=== PATIENT | male | born 1980 | race Caucasian/White ===

== ENCOUNTER 2023-05-26 15:48 | Inpatient (IN) ==
[2023-05-26 16:40] LABS: Basophils # (auto) 0.02 K/uL (0.00-0.20); Basophils % (auto) 0.4 %; Eosinophils # (auto) 0.44 K/uL (0.00-0.50); Eosinophils % (auto) 8.6 %; Hematocrit (blood only) 38.4 % (42.0-52.0); Hemoglobin 13.6 g/dl (14.0-18.0); Lymphocytes # (auto) 1.65 K/uL (1.20-3.40); Lymphocytes % (auto) 32.3 %; Mean Corpuscular Hemoglobin 30.2 pg (25.0-34.0); Mean Corpuscular Hgb Conc 35.4 g/dL (32.0-36.0); Mean Corpuscular Volume 85.3 fL (80.0-100.0); Mean Platelet Volume 9.4 fL (9.4-12.4); Monocytes # (auto) 0.39 K/uL (0.11-0.59); Monocytes % (auto) 7.6 %; Neutrophils # (auto) 2.61 K/uL (1.40-6.50); Neutrophils % (auto) 51.1 %; Platelet Count 235 K/uL (130-400); RDW Standard Deviation 43.4 fL (36.4-46.3); White Blood Count 5.11 K/ul (4.8-10.8)
[2023-05-26 16:53] LABS: INR 0.9 (0.9-1.1); Partial Thromboplastin Ratio 0.9; Partial Thromboplastin Time 25 Seconds (21-31); Prothrombin Time 9.6 Seconds (9.0-12.0)
[2023-05-26 17:07] LABS: Albumin Level 4.5 gm/dl (3.4-5.0); Anion Gap 8 (3-11); Bilirubin,Total 0.7 mg/dl (0.2-1.0); Carbon Dioxide 26 mmol/L (21-32); Chloride 105 mmol/L (98-107); Potassium 3.8 mmol/L (3.5-5.1); Sodium 139 mmol/L (136-145)
[2023-05-26 17:10] LABS: Troponin I High Sensitivity < 2.3 pg/ml (0-20)
[2023-05-26 17:13] LABS: Alanine Aminotransferase 55 U/L (7-52); Albumin Globulin Ratio 1.7 (0.9-2); Alkaline Phosphatase 92 U/L (34-104); Aspartate Aminotransferase 26 U/L (13-39); BUN Creatinine Ratio 21.1 (10-20); Blood Urea Nitrogen 19 mg/dl (6-23); Creatinine Clr Calc Pharmacy 154.8 ml/min; Est GFR (African American) 121.7 ml/min; Globulin 2.6 gm/dl (2.5-4.0); Glucose 185 mg/dl (70-99(Fasting)); Total Protein 7.1 gm/dl (6.0-8.3)
--- NOTE | 2023-05-26 17:54 | XRay Report ---
SINGLE VIEW CHEST CLINICAL HISTORY: Atypical chest pain. FINDINGS: A PA chest radiograph is compared to study dated 03/20/2011. A 2-lead cardiac pacemaker is n ew from previous. This partially obscures the left lower chest. The cardiomediastinal silhouette is t op normal for projection. The pulmonary vasculature is noncongested. The lungs and pleural spaces are clear. No pneumothorax is seen. The bony thorax is grossly intact. Cholecystectomy clips are seen in the right upper quadrant. IMPRESSION: 1. A cardiac pacemaker is new from previous. There is no radiographic evidence of congestive failure. 2. No airspace consolidation or large pleural effusion is identified. ACT 112: Negative or not required by law. Electronically signed by: Mj Cox M.D. 05/26/2023 5:53 PM
[2023-05-26] MEDS ORDERED: PANTOPRAZOLE BOLUS/DRIP IV STA (18:22)
--- NOTE | 2023-05-26 18:28 | Emergency Department Note ---
Impression & Plan Hematemesis, Acute upper GI bleed, Elevated glucose ED Provider Note NAME: DAVID TAVERAS AGE: 43 SEX: M : 1980 ARRIVES VIA: Walk-In INFORMANT: Patient ED PROVIDER(S): Ernesto Barton DO CHIEF COMPLAINT: Abdominal pain, chest pain and vomiting HPI: Patient is a 43-year-old male who presents to the ER with a past medical history of esophageal ulcer for abdominal pain and vomiting which started late yesterday. He has had 5-6 episodes of coffee-ground emesis with this. He denies any black stools. No headache or change in vision. Does have pain coming up from the abdomen into the chest. No dysuria urgency or frequency. Does take Xarelto and does have a dual pacemaker. BMP was fairly unremarkable with exception of an elevated glucose at 185. LFTs and bili is unremarkable. Troponin negative. Patient was typed and screened. ADDITIONAL HISTORY OBTAINED: Per HPI Chronic Medical/Social Conditions Affecting Care: Per HPI PAST MEDICAL HISTORY:See Below PAST SURGICAL HISTORY:See Below FAMILY HISTORY:See Below SOCIAL HISTORY:See Below HOME MEDICATIONS:See Below ALLERGIES:See Below VITALS:See Below PHYSICAL EXAMINATION: GENERAL: Sitting up in bed, alert, well appearing, well nourished, no distress, non-toxic EYE EXAM: normal conjunctiva. OROPHARYNX: mucous membranes are moist NECK: supple, no nuchal rigidity, no adenopathy, non-tender LUNGS: Clear to auscultation. Normal chest wall mechanics HEART: no murmurs, S1 normal and S2 normal ABDOMEN: abdomen soft, non-tender, normo-active bowel sounds, no masses, no rebound or guarding. BACK: Back is symmetrical on inspection and there is no deformity, no midline tenderness, no CVA tenderness. SKIN: no rashes and no bruising UPPER EXTREMITIES: upper extremities are grossly normal. LOWER EXTREMITIES: No pitting edema. NEURO EXAM: Normal sensorium, cranial nerves II-XII grossly intact, normal speech, no gross weakness of arms, no gross weakness of legs. MEDICAL DECISION MAKING: Patient is a 43-year-old male who presents ER for above-stated complaint. He is on rivaroxaban and does have a history of previous esophageal clip secondary to bleeding/ulcer. He admits to hematemesis x 5 today. IV was established blood work was obtained. Labs show no significant leukocytosis. Mild anemia at 13.6. INR unremarkable. BMP with slightly elevated glucose at 185. LFTs bilirubin lipase is unremarkable. Patient was typed and screened. CT abdomen pelvis shows mesenteric inflammation. Chest x-ray was clean. Placed on Protonix drip and bolus updated bedside discussed case with the hospitalist for further evaluation management treatment. Discussed case with the hospitalist for further evaluation management treatment. Consults/Care Managements Discussions: Per MDM Triage Nursing notes reviewed. Limited review of prior medical records performed Vital Signs: reviewed and remarkable for no significant abnormalities Differential diagnosis: Differential diagnoses includes but is not limited to gastritis, peptic ulcer disease, GERD, gallbladder disease, pancreatitis, small bowel obstruction, appendicitis, diverticulitis, hernia, urinary tract infection, torsion, perforation, trauma, infectious. ER treatment provided: See below Diagnostics interpreted by me include EKG and cardiac monitoring as listed below: -Cardiac Monitoring: An order was placed for continuous cardiac monitoring. The monitor shows a rate of 70 with sinus rhythm. -ECG: Sinus rhythm rate 76 Left axis No PVCs QTc 436 -Laboratory studies:Interpreted by me as stated above in MDM and shown below. Imaging studies: Xrays: As interpreted by me: Portable AP part 1 view of the chest shows no focal infiltrate CTs show: CT abdomen pelvis as described above per radiology Procedures:none Critical Care: None Past Med/Surg History Social History Smoking Status: Never smoker Feels Safe at Home: Yes Allergies Allergies Allergy/AdvReac Type Severity Reaction Status Date / Time penicillin V Allergy Severe RESP Verified 05/26/23 19:52 DIFFICULTY NSAIDS (Non-Steroidal Allergy Unknown UNKNOWN Unverified 05/26/23 19:52 Anti-Inflamma procaine Allergy Unknown UNKNOWN Unverified 05/26/23 19:52 adhesive Allergy _ Verified 05/26/23 19:52 Iodinated Contrast Media Allergy PROFILED Verified 05/26/23 19:52 "SEAFOOD ALLERGY=RASH" aripiprazole AdvReac Intermediate SEVERE Verified 05/26/23 19:52 MUSCLE CRAMPING clozapine AdvReac Intermediate ELEVATED Verified 05/26/23 19:52 AMMONIA LEVELS valproic acid AdvReac Unknown ELEVATED Verified 05/26/23 19:52 AMMONIA LEVELS Home Meds Home Medications Medication Instructions Recorded Confirmed adalimumab 40 mg/0.8 mL 40 mg subcut .Q2W 05/26/23 05/26/23 subcutaneous syringe kit (Humira) atorvastatin 40 mg tablet 40 mg PO DAILY 05/26/23 05/26/23 empagliflozin 25 mg tablet 25 mg PO DAILY 05/26/23 05/26/23 (Jardiance) insulin glargine 100 unit/mL (3 36 unit subcut QPM 05/26/23 05/26/23 mL) subcutaneous pen (Lantus Solostar U-100 Insulin) insulin lispro 100 unit/mL 0 unit subcut UD PRN Hyperglycemia 05/26/23 05/26/23 subcutaneous pen (Humalog KwikPen (U-100) Insulin) metformin 1,000 mg tablet 1,000 mg PO BID 05/26/23 05/26/23 pregabalin 200 mg capsule (Lyrica) 200 mg PO BID 05/26/23 05/26/23 rivaroxaban 20 mg tablet (Xarelto) 20 mg PO DAILYBD 05/26/23 05/26/23 Results & Data (ED) Vital Signs Vital Signs - 24 hr 05/26/23 15:51 05/26/23 17:54 05/26/23 18:04 Temperature 36.8 C Temperature Source Temporal Artery Scan Pulse Rate 89 75 Pulse Rate [Left Apical] 72 Pulse Rhythm Regular Pulse Strength Normal Respiratory Rate 20 18 Respiratory Effort / Characteristics Non-Labored Spontaneous Non-Labored Spontaneous Respiratory Depth Normal Normal Respiratory Pattern Regular Blood Pressure 153/96 H Blood Pressure [Right Arm] 126/78 Blood Pressure Mean 115 Blood Pressure Mean [Right Arm] 94 Blood Pressure Position [Right Arm] Lying Pulse Oximetry 97 98 Oxygen Delivery Method Room Air Room Air Sepsis Recent Fever Within 48 Hours No Sepsis New/Unexplained Change in Mental Status N/A Sepsis Action Taken by Nursing No Action Required 05/26/23 19:16 Temperature Temperature Source Pulse Rate Pulse Rate [Left Apical] 64 Pulse Rhythm Pulse Strength Respiratory Rate 18 Respiratory Effort / Characteristics Respiratory Depth Respiratory Pattern Blood Pressure Blood Pressure [Right Arm] 120/99 Blood Pressure Mean Blood Pressure Mean [Right Arm] 106 Blood Pressure Position [Right Arm] Pulse Oximetry 99 Oxygen Delivery Method Room Air Sepsis Recent Fever Within 48 Hours Sepsis New/Unexplained Change in Mental Status Sepsis Action Taken by Nursing Laboratory Data 05/26/23 16:14 05/26/23 16:14 Lab Results 05/26/23 05/26/23 Range/Units 16:14 17:31 WBC 5.11 (4.8-10.8) K/ul RBC 4.50 L (4.70-6.10) M/uL Hgb 13.6 L (14.0-18.0) g/dl Hct 38.4 L (42.0-52.0) % MCV 85.3 (80.0-100.0) fL MCH 30.2 (25.0-34.0) pg MCHC 35.4 (32.0-36.0) g/dL RDW Std Deviation 43.4 (36.4-46.3) fL RDW Coeff of Tiesha 14.0 (11.5-14.5) % Plt Count 235 (130-400) K/uL MPV 9.4 (9.4-12.4) fL Immature Gran % (Auto) 0.0 % Neut % (Auto) 51.1 % Lymph % (Auto) 32.3 % Taylor % (Auto) 7.6 % Eos % (Auto) 8.6 % Baso % (Auto) 0.4 % Neut # (Auto) 2.61 (1.40-6.50) K/uL Lymph # (Auto) 1.65 (1.20-3.40) K/uL Taylor # (Auto) 0.39 (0.11-0.59) K/uL Eos # (Auto) 0.44 (0.00-0.50) K/uL Baso # (Auto) 0.02 (0.00-0.20) K/uL Immature Gran # (Auto) 0.00 L (0.01-0.20) K/uL PT 9.6 (9.0-12.0) Seconds INR 0.9 (0.9-1.1) APTT 25 (21-31) Seconds PTT Ratio 0.9 Sodium 139 (136-145) mmol/L Potassium 3.8 (3.5-5.1) mmol/L Chloride 105 (98-107) mmol/L Carbon Dioxide 26 (21-32) mmol/L Anion Gap 8 (3-11) BUN 19 (6-23) mg/dl Creatinine 0.90 (0.6-1.4) mg/dl Est Cr Clr Drug Dosing 154.8 ml/min Est GFR ( Amer) 121.7 ml/min Est GFR (Non-Af Amer) 105.0 ml/min BUN/Creatinine Ratio 21.1 H (10-20) Glucose 185 H (70-99(Fasting)) mg/dl Calcium 10.0 (8.6-10.3) mg/dl Total Bilirubin 0.7 (0.2-1.0) mg/dl AST 26 (13-39) U/L ALT 55 H (7-52) U/L Alkaline Phosphatase 92 (34-104) U/L Troponin I High Sens < 2.3 (0-20) pg/ml Total Protein 7.1 (6.0-8.3) gm/dl Albumin 4.5 (3.4-5.0) gm/dl Globulin 2.6 (2.5-4.0) gm/dl Albumin/Globulin Ratio 1.7 (0.9-2) Lipase 17 (11-82) U/L Blood Type O Positive Antibody Screen NEGATIVE Administered Medications Pantoprazole Sodium 40 mg/ (Dextrose) 100 mls @ 20 mls/hr IV Q5H SALLY Stop: 06/25/23 18:44 Last Admin: 05/26/23 19:36 Dose: 8 mg/hr, 20 mls/hr Documented By: BENJAMIN Discontinued Medications Sodium Chloride (Nss) 1,000 mls @ 999 mls/hr IV .Q1H1M ONE Stop: 05/26/23 19:22 Last Infusion: 05/26/23 20:46 Dose: Infused Documented By: Admin: 05/26/23 18:29 Dose: 999 mls/hr Documented By: BRI Pantoprazole Sodium 80 mg/ (Dextrose) 120 mls @ 480 mls/hr IV NOW ONE Stop: 05/26/23 18:36 Last Infusion: 05/26/23 20:03 Dose: Infused Documented By: Admin: 05/26/23 19:18 Dose: 480 mls/hr Documented By: ANTWAN Morphine Sulfate (Morphine Sulfate 2 Mg/Ml Carp) 2 mg IV NOW STA Stop: 05/26/23 21:53 Last Admin: 05/26/23 22:09 Dose: 2 mg Documented By: BRI Imaging Data Radiologist's Impression: Chest X-Ray 05/26/23 15:50 SINGLE VIEW CHEST CLINICAL HISTORY: Atypical chest pain. FINDINGS: A PA chest radiograph is compared to study dated 03/20/2011. A 2-lead cardiac pacemaker is new from previous. This partially obscures the left lower chest. The cardiomediastinal silhouette is top normal for projection. The pulmonary vasculature is noncongested. The lungs and pleural spaces are clear. No pneumothorax is seen. The bony thorax is grossly intact. Cholecystectomy clips are seen in the right upper quadrant. IMPRESSION: 1. A cardiac pacemaker is new from previous. There is no radiographic evidence of congestive failure. 2. No airspace consolidation or large pleural effusion is identified. ACT 112: Negative or not required by law. Electronically signed by: Mj Cox M.D. 05/26/2023 5:53 PM Abdomen/Pelvis CT 05/26/23 18:22 Exam(s): CT ABDOMEN + PELVIS Without Contrast EXAM: CT Abdomen and Pelvis Without Intravenous Contrast CLINICAL HISTORY: Pain. TECHNIQUE: Axial computed tomography images of the abdomen and pelvis without intravenous contrast. CTDI is 28.14 mGy and DLP is 1527.97 mGy-cm. Automated exposure control was utilized for the study. A dose lowering technique was utilized adhering to the principles of ALARA. COMPARISON: CT abdomen and pelvis 03/24/2011 FINDINGS: Lung bases: Unremarkable. No mass. No consolidation. ABDOMEN: Liver: Unremarkable. Gallbladder and bile ducts: Cholecystectomy. No ductal dilation. Pancreas: Unremarkable. No ductal dilation. Spleen: Unremarkable. No splenomegaly. Adrenals: Unremarkable. No mass. Kidneys and ureters: Unremarkable. No obstructing stones. No hydronephrosis. Stomach and bowel: Unremarkable. No obstruction. No mucosal thickening. PELVIS: Appendix: Appendectomy. Bladder: Unremarkable. No stones. Reproductive: Unremarkable as visualized. ABDOMEN and PELVIS: Intraperitoneal space: Unremarkable. No free air. No significant fluid collection. Bones/joints: There are degenerative changes of the spine. No acute fracture. No dislocation. Soft tissues: Unremarkable. Vasculature: Unremarkable. No abdominal aortic aneurysm. Lymph nodes: Corinna mesentery with prominent mesenteric lymph nodes is noted. IMPRESSION: Corinna mesentery with prominent mesenteric lymph nodes is noted. 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 Electronically signed by: Lucretia Prieto MD 05/26/23 19:47 PM Discharge Plan Visit Data Chief Complaint: Chest Pain Stated Complaint: CHEST PAINS, VOMITING ED Provider: Ernesot Barton Discharge Problem: Hematemesis, Acute upper GI bleed, Elevated glucose Discharge Instructions Interventions: ED Discharge Assessment Last Done: 05/26/23 22:41 Discharge Problem: Hematemesis Qualifiers: Nausea presence: with nausea Qualified Code(s): K92.0 - Hematemesis
[2023-05-26] MEDS: SODIUM CHLORIDE 0.9% 1,000 ML IV ONE (18:29)
[2023-05-26] MEDS: PANTOprazole 80 MG in DEXTROSE 5% 100 ML IV ONE (19:18)
[2023-05-26] MEDS: PANTOprazole 40 MG in DEXTROSE 5% MINI-B 100 ML IV SCH (19:36)
--- NOTE | 2023-05-26 19:47 | CT Scan Report ---
Exam(s): CT ABDOMEN + PELVIS Without Contrast EXAM: CT Abdomen and Pelvis Without Intravenous Contrast CLINICAL HISTORY: Pain. TECHNIQUE: Axial computed tomography images of the abdomen and pelvis without intravenous contrast. CTDI is 28.14 mGy and DLP is 1527.97 mGy-cm. Automated exposure control was utilized for the study. A dose lowering technique was utilized adhering to the principles of ALARA. COMPARISON: CT abdomen and pelvis 03/24/2011 FINDINGS: Lung bases: Unremarkable. No mass. No consolidation. ABDOMEN: Liver: Unremarkable. Gallbladder and bile ducts: Cholecystectomy. No ductal dilation. Pancreas: Unremarkable. No ductal dilation. Spleen: Unremarkable. No splenomegaly. Adrenals: Unremarkable. No mass. Kidneys and ureters: Unremarkable. No obstructing stones. No hydronephrosis. Stomach and bowel: Unremarkable. No obstruction. No mucosal thickening. PELVIS: Appendix: Appendectomy. Bladder: Unremarkable. No stones. Reproductive: Unremarkable as visualized. ABDOMEN and PELVIS: Intraperitoneal space: Unremarkable. No free air. No significant fluid collection. Bones/joints: There are degenerative changes of the spine. No acute fracture. No dislocation. Soft tissues: Unremarkable. Vasculature: Unremarkable. No abdominal aortic aneurysm. Lymph nodes: Corinna mesentery with prominent mesenteric lymph nodes is noted. IMPRESSION: Corinna mesentery with prominent mesenteric lymph nodes is noted. 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 Electronically signed by: Lucretia Prieto MD 05/26/23 19:47 PM
--- NOTE | 2023-05-26 21:52 | History & Physical Report ---
Date of Service May 26, 2023 Assessment & Plan (1) Hematemesis: Plan: 43-year-old male with past med history significant for type 2 diabetes, hyperlipidemia, asthma, history of factor V Leyden mutation, history of chest pain, history of eosinophilic esophagitis, history of pseudoseizures, history of migraine, anxiety, Klinefelter syndrome, noncompliant, depression, medical marijuana use, history of symptomatic bradycardia s/p pacemaker history of ventricular tachycardia, fibromyalgia, morbid obesity, history of obstructive sleep apnea currently not using CPAP machine and states he lost weight and planning to do sleep study presents with hematemesis and chest pain. Patient states since yesterday evening he had 4-6 episodes of hematemesis. Today morning since 3 AM is having chest pain. 7 /10 severity in middle of the chest. No radiation. Also has upper abdominal pain 7/ 10 in severity. No diarrhea or constipation. No bloody stools or black stools. Micturating okay. No shortness of breath. No fevers. No headache. Vision is okay. No runny nose or sore throat. No cough. Patient had similar episodes in April of last year. Hemodynamics are okay. Resting comfortably. Hematemesis Hemoglobin 13.6 Will hold Xarelto Blood consent obtained H&H every 6 hours Protonix drip N.p.o., IV fluids Telemetry GI consult in a.m. Close monitor Chest pains Troponin unremarkable Will follow repeat EKG and troponins and echo Cardiac consult in a.m. Diabetes Cut back on Lantus to 18 units as patient is n.p.o. Sliding scale Follow HbA1c levels Factor V Leiden mutation Holding Xarelto for above Rheumatoid arthritis On Humira Hyperlipidemia On statin Morbid obesity Needs counseling Nutrition follow-up Obstructive sleep apnea Currently not using CPAP States lost weight and trying to do repeat sleep study DVT prophylaxis SCDs Disposition Telemetry Full code History of Present Illness Chief Complaint: Hematemesis and chest pain Primary Care Provider: NO PCP 43-year-old male with past med history significant for type 2 diabetes, hyperlipidemia, asthma, history of factor V Leyden mutation, history of chest pain, history of eosinophilic esophagitis, history of pseudoseizures, history of migraine, anxiety, Klinefelter syndrome, noncompliant, depression, medical marijuana use, history of symptomatic bradycardia s/p pacemaker history of ventricular tachycardia, fibromyalgia, morbid obesity, history of obstructive sleep apnea currently not using CPAP machine and states he lost weight and planning to do sleep study presents with hematemesis and chest pain. Patient states since yesterday evening he had 4-6 episodes of hematemesis. Today morning since 3 AM is having chest pain. 7 /10 severity in middle of the chest. No radiation. Also has upper abdominal pain 7/ 10 in severity. No diarrhea or constipation. No bloody stools or black stools. Micturating okay. No shortness of breath. No fevers. No headache. Vision is okay. No runny nose or sore throat. No cough. Patient had similar episodes in April of last year. Hemodynamics are okay. Resting comfortably. Past med history. As mentioned above Past surgical history. S/p pacemaker. Cholecystectomy. For tooth removal. Gastric ulcer cauterized. Appendectomy. Social history. No smoking. No alcohol. Currently no drugs. Family history. Father had testicular cancer. Diabetes. CABG and stents. Hypertension. Sister has thyroid disorder Allergies Allergy/AdvReac Type Severity Reaction Status Date / Time penicillin V Allergy Severe RESP Verified 05/26/23 19:52 DIFFICULTY NSAIDS (Non-Steroidal Allergy Unknown UNKNOWN Unverified 05/26/23 19:52 Anti-Inflamma procaine Allergy Unknown UNKNOWN Unverified 05/26/23 19:52 adhesive Allergy _ Verified 05/26/23 19:52 Iodinated Contrast Media Allergy PROFILED Verified 05/26/23 19:52 "SEAFOOD ALLERGY=RASH" aripiprazole AdvReac Intermediate SEVERE Verified 05/26/23 19:52 MUSCLE CRAMPING clozapine AdvReac Intermediate ELEVATED Verified 05/26/23 19:52 AMMONIA LEVELS valproic acid AdvReac Unknown ELEVATED Verified 05/26/23 19:52 AMMONIA LEVELS Home Medications Medication Instructions Recorded Confirmed Type adalimumab 40 mg/0.8 mL 40 mg subcut .Q2W 05/26/23 05/26/23 History subcutaneous syringe kit (Humira) atorvastatin 40 mg tablet 40 mg PO DAILY 05/26/23 05/26/23 History empagliflozin 25 mg tablet 25 mg PO DAILY 05/26/23 05/26/23 History (Jardiance) insulin glargine 100 unit/mL (3 36 unit subcut QPM 05/26/23 05/26/23 History mL) subcutaneous pen (Lantus Solostar U-100 Insulin) insulin lispro 100 unit/mL 0 unit subcut UD PRN Hyperglycemia 05/26/23 05/26/23 History subcutaneous pen (Humalog KwikPen (U-100) Insulin) metformin 1,000 mg tablet 1,000 mg PO BID 05/26/23 05/26/23 History pregabalin 200 mg capsule (Lyrica) 200 mg PO BID 05/26/23 05/26/23 History rivaroxaban 20 mg tablet (Xarelto) 20 mg PO DAILYBD 05/26/23 05/26/23 History Past Med/Surg History Social History Smoking Status: Never smoker Hx Alcohol Use: No Hx Substance Use: No Preferred Language: [place] Citizen Communication Ability: Effective Category Specialist Required: No Beliefs That Will Affect Care: None Current Living Situation: Alone Feels Safe at Home: Yes Safety Concerns: Feels Safe At This Time Assistive Devices: None Review of Systems Review of Systems: All systems reviewed & are unremarkable except as noted in HPI & below Physical Exam Physical Exam: General- Not in distress Head- atraumatic Eyes- PERRL. ENT- oropharynx clear Neck- supple, no JVD. Lungs- clear to auscultation no wheezing or crackles. Heart- regular rhythm; no murmur, no gallop. Abdomen- normal bowel sounds, soft,mild diffuse discomfort , no distension Extremities- no pretibial edema, no erythema seen. Neuro- alert, oriented x 3; PERRL, no facial palsy; no dysarthria; Skin- warm & dry Results & Data Results & Data Vital Signs (Past 12 Hours) Vital Signs Temp Pulse Pulse Resp BP BP Pulse Ox 05/26/23 19:16 64 18 120/99 99 05/26/23 18:04 75 05/26/23 17:54 72 18 126/78 98 05/26/23 15:51 36.8 C 89 20 153/96 H 97 O2 Del Method 05/26/23 19:16 Room Air 05/26/23 18:04 05/26/23 17:54 Room Air 05/26/23 15:51 Room Air Diagnostic Findings Laboratory Results WBC 5.11 K/ul (4.8-10.8) 05/26/23 16:14 RBC 4.50 M/uL (4.70-6.10) L 05/26/23 16:14 Hgb 13.6 g/dl (14.0-18.0) L 05/26/23 16:14 Hct 38.4 % (42.0-52.0) L 05/26/23 16:14 MCV 85.3 fL (80.0-100.0) 05/26/23 16:14 MCH 30.2 pg (25.0-34.0) 05/26/23 16:14 MCHC 35.4 g/dL (32.0-36.0) 05/26/23 16:14 RDW Std Deviation 43.4 fL (36.4-46.3) 05/26/23 16:14 RDW Coeff of Tiesha 14.0 % (11.5-14.5) 05/26/23 16:14 Plt Count 235 K/uL (130-400) 05/26/23 16:14 MPV 9.4 fL (9.4-12.4) 05/26/23 16:14 Immature Gran % (Auto) 0.0 % 05/26/23 16:14 Neut % (Auto) 51.1 % 05/26/23 16:14 Lymph % (Auto) 32.3 % 05/26/23 16:14 Elbert % (Auto) 7.6 % 05/26/23 16:14 Eos % (Auto) 8.6 % 05/26/23 16:14 Baso % (Auto) 0.4 % 05/26/23 16:14 Neut # (Auto) 2.61 K/uL (1.40-6.50) 05/26/23 16:14 Lymph # (Auto) 1.65 K/uL (1.20-3.40) 05/26/23 16:14 Elbert # (Auto) 0.39 K/uL (0.11-0.59) 05/26/23 16:14 Eos # (Auto) 0.44 K/uL (0.00-0.50) 05/26/23 16:14 Baso # (Auto) 0.02 K/uL (0.00-0.20) 05/26/23 16:14 Immature Gran # (Auto) 0.00 K/uL (0.01-0.20) L 05/26/23 16:14 PT 9.6 Seconds (9.0-12.0) 05/26/23 16:14 INR 0.9 (0.9-1.1) 05/26/23 16:14 APTT 25 Seconds (21-31) 05/26/23 16:14 PTT Ratio 0.9 05/26/23 16:14 Sodium 139 mmol/L (136-145) 05/26/23 16:14 Potassium 3.8 mmol/L (3.5-5.1) 05/26/23 16:14 Chloride 105 mmol/L (98-107) 05/26/23 16:14 Carbon Dioxide 26 mmol/L (21-32) 05/26/23 16:14 Anion Gap 8 (3-11) 05/26/23 16:14 BUN 19 mg/dl (6-23) 05/26/23 16:14 Creatinine 0.90 mg/dl (0.6-1.4) 05/26/23 16:14 Est Cr Clr Drug Dosing 154.8 ml/min 05/26/23 16:14 Est GFR ( Amer) 121.7 ml/min 05/26/23 16:14 Est GFR (Non-Af Amer) 105.0 ml/min 05/26/23 16:14 BUN/Creatinine Ratio 21.1 (10-20) H 05/26/23 16:14 Glucose 185 mg/dl (70-99(Fasting)) H 05/26/23 16:14 Calcium 10.0 mg/dl (8.6-10.3) 05/26/23 16:14 Total Bilirubin 0.7 mg/dl (0.2-1.0) 05/26/23 16:14 AST 26 U/L (13-39) 05/26/23 16:14 ALT 55 U/L (7-52) H 05/26/23 16:14 Alkaline Phosphatase 92 U/L (34-104) 05/26/23 16:14 Troponin I High Sens < 2.3 pg/ml (0-20) 05/26/23 16:14 Total Protein 7.1 gm/dl (6.0-8.3) 05/26/23 16:14 Albumin 4.5 gm/dl (3.4-5.0) 05/26/23 16:14 Globulin 2.6 gm/dl (2.5-4.0) 05/26/23 16:14 Albumin/Globulin Ratio 1.7 (0.9-2) 05/26/23 16:14 Lipase 17 U/L (11-82) 05/26/23 16:14 Blood Type O Positive 05/26/23 17:31 Antibody Screen NEGATIVE 05/26/23 17:31 Impressions Chest X-Ray 05/26/23 15:50 SINGLE VIEW CHEST CLINICAL HISTORY: Atypical chest pain. FINDINGS: A PA chest radiograph is compared to study dated 03/20/2011. A 2-lead cardiac pacemaker is new from previous. This partially obscures the left lower chest. The cardiomediastinal silhouette is top normal for projection. The pulmonary vasculature is noncongested. The lungs and pleural spaces are clear. No pneumothorax is seen. The bony thorax is grossly intact. Cholecystectomy clips are seen in the right upper quadrant. IMPRESSION: 1. A cardiac pacemaker is new from previous. There is no radiographic evidence of congestive failure. 2. No airspace consolidation or large pleural effusion is identified. ACT 112: Negative or not required by law. Electronically signed by: Mj Cox M.D. 05/26/2023 5:53 PM Abdomen/Pelvis CT 05/26/23 18:22 Exam(s): CT ABDOMEN + PELVIS Without Contrast EXAM: CT Abdomen and Pelvis Without Intravenous Contrast CLINICAL HISTORY: Pain. TECHNIQUE: Axial computed tomography images of the abdomen and pelvis without intravenous contrast. CTDI is 28.14 mGy and DLP is 1527.97 mGy-cm. Automated exposure control was utilized for the study. A dose lowering technique was utilized adhering to the principles of ALARA. COMPARISON: CT abdomen and pelvis 03/24/2011 FINDINGS: Lung bases: Unremarkable. No mass. No consolidation. ABDOMEN: Liver: Unremarkable. Gallbladder and bile ducts: Cholecystectomy. No ductal dilation. Pancreas: Unremarkable. No ductal dilation. Spleen: Unremarkable. No splenomegaly. Adrenals: Unremarkable. No mass. Kidneys and ureters: Unremarkable. No obstructing stones. No hydronephrosis. Stomach and bowel: Unremarkable. No obstruction. No mucosal thickening. PELVIS: Appendix: Appendectomy. Bladder: Unremarkable. No stones. Reproductive: Unremarkable as visualized. ABDOMEN and PELVIS: Intraperitoneal space: Unremarkable. No free air. No significant fluid collection. Bones/joints: There are degenerative changes of the spine. No acute fracture. No dislocation. Soft tissues: Unremarkable. Vasculature: Unremarkable. No abdominal aortic aneurysm. Lymph nodes: Corinna mesentery with prominent mesenteric lymph nodes is noted. IMPRESSION: Corinna mesentery with prominent mesenteric lymph nodes is noted. 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 Electronically signed by: Lucretia Prieto MD 05/26/23 19:47 PM ECG Additional Comments: ECG. Normal sinus rhythm with sinus erythematous on 6. Minimal voltage criteria for LVH. Possible anterolateral infarct age undetermined. Code Status & VTE Plan VTE Prophylaxis Plan VTE Prophylaxis will be ordered: Yes
[2023-05-26] MEDS: MoRPHine SULFATE 2 MG/ML CARP IV STA (22:09)
[2023-05-26] MEDS ORDERED: CARBOHYDRATES FOR HYPOGLYCEMIA PO PRN (22:40)
[2023-05-26] MEDS ORDERED: DEXTROSE 50% 50 ML SYRINGE IV PRN (22:40)
[2023-05-26] MEDS ORDERED: GLUCOSE 10 TAB/TUBE PO PRN (22:40)
[2023-05-26] MEDS ORDERED: GLUCOSE 40% GEL 15 GM TUBE PO PRN (22:40)
[2023-05-26] MEDS ORDERED: GLUCAGON FOR INJ 1 MG VIAL SQ PRN (22:40)
[2023-05-26] MEDS ORDERED: NITROGLYCERIN SL 0.4 MG/TAB TAB SL PRN (22:40)
[2023-05-26] MEDS: PREGABALIN 100 MG CAP PO SCH (23:36)
[2023-05-26] MEDS: LANTUS PER UNIT CHARGE SQ SCH (23:36)
[2023-05-26] MEDS: SODIUM CHLORIDE 0.9% 1,000 ML IV SCH (23:39)
[2023-05-26] MEDS: INSULIN ASPART PER UNIT CHARGE SC SCH (23:50)
[2023-05-27 06:55] LABS: Hematocrit (blood only) 35.8 % (42.0-52.0); Hemoglobin 12.2 g/dl (14.0-18.0)
[2023-05-27 06:58] LABS: Anion Gap 5 (3-11); Blood Urea Nitrogen 16 mg/dl (6-23); Calcium 8.9 mg/dl (8.6-10.3); Carbon Dioxide 26 mmol/L (21-32); Chloride 110 mmol/L (98-107); Creatinine Clr Calc Pharmacy 165.9 ml/min; Est GFR (African American) 125.2 ml/min; Glucose 134 mg/dl (70-99(Fasting)); Magnesium 1.7 mg/dl (1.7-2.4); Potassium 3.8 mmol/L (3.5-5.1); Sodium 141 mmol/L (136-145)
[2023-05-27 07:05] LABS: Troponin I High Sensitivity < 2.3 pg/ml (0-20)
[2023-05-27 07:07] LABS: Estimated Average Glucose 154 mg/dl
[2023-05-27] MEDS: ATORVASTATIN 40 MG TAB PO SCH (07:37)
[2023-05-27] MEDS: MoRPHine SULFATE 2 MG/ML CARP IV PRN (08:12)
--- NOTE | 2023-05-27 08:55 | Gastrointestinal Consultation ---
Date of Consultation May 27, 2023 Assessment & Plan (1) Hematemesis: (2) Acute upper GI bleed: Plan 1. EGD today by Dr. Alex bains further recommendations to follow. 2. Keep NPO. Hold Xeralto. 3. Additionally, our office will reach out to him to arrange OP GI f/u for EOE/dysphagia. History of Present Illness Reason for Consultation: hematemesis Requesting Physician: Dr. Chi Attending Physician: Rod Bruner MD History of Present Illness Mr. Luis Burris is a 43 yr old male w/o a local PCP. He moved here from [facility] about 3 weeks ago. He carries a hx of EOE (not currently medicated and most recent EGD about 10 yrs ago). He has had dysphagia for the past few months, food triggers being mostly chicken, beef, but some other solid foods as well. He carries a hx of Factor 5 Leiden deficiency and is on Eliquis. Also has a dual pacemaker and was recently dx'ed w and placed on Humira. He presented to the ED yesterday because he vomited blood on Tuesday afternoon (small amt) and again on afternoon (small amt prior to arrival x about 5 episodes, then one large bloody emesis here in the ED). Since the vomiting started, he has had moderate epigastric, LUQ and periumbilical pain. He had abd burning pain into the chest with the emesis but otherwise no CP and troponins have been normal. Hb on arrival 13.6->12.2, BUN is normal. CT questions panniculitis. Pt is awake, alert, oriented and hemodynamically stable. Allergies Allergy/AdvReac Type Severity Reaction Status Date / Time penicillin V Allergy Severe RESP Verified 05/26/23 19:52 DIFFICULTY NSAIDS (Non-Steroidal Allergy Unknown UNKNOWN Unverified 05/26/23 19:52 Anti-Inflamma procaine Allergy Unknown UNKNOWN Unverified 05/26/23 19:52 adhesive Allergy _ Verified 05/26/23 19:52 Iodinated Contrast Media Allergy PROFILED Verified 05/26/23 19:52 "SEAFOOD ALLERGY=RASH" aripiprazole AdvReac Intermediate SEVERE Verified 05/26/23 19:52 MUSCLE CRAMPING clozapine AdvReac Intermediate ELEVATED Verified 05/26/23 19:52 AMMONIA LEVELS valproic acid AdvReac Unknown ELEVATED Verified 05/26/23 19:52 AMMONIA LEVELS Home Medications Medication Instructions Recorded Confirmed Type adalimumab 40 mg/0.8 mL 40 mg subcut .Q2W 05/26/23 05/26/23 History subcutaneous syringe kit (Humira) atorvastatin 40 mg tablet 40 mg PO DAILY 05/26/23 05/26/23 History empagliflozin 25 mg tablet 25 mg PO DAILY 05/26/23 05/26/23 History (Jardiance) insulin glargine 100 unit/mL (3 36 unit subcut QPM 05/26/23 05/26/23 History mL) subcutaneous pen (Lantus Solostar U-100 Insulin) insulin lispro 100 unit/mL 0 unit subcut UD PRN Hyperglycemia 05/26/23 05/26/23 History subcutaneous pen (Humalog KwikPen (U-100) Insulin) metformin 1,000 mg tablet 1,000 mg PO BID 05/26/23 05/26/23 History pregabalin 200 mg capsule (Lyrica) 200 mg PO BID 05/26/23 05/26/23 History rivaroxaban 20 mg tablet (Xarelto) 20 mg PO DAILYBD 05/26/23 05/26/23 History Patient History Social History Smoking Status: Never smoker Hx Alcohol Use: No Hx Substance Use: No Preferred Language: [place] Communication Ability: Effective Physician Scientist Required: No Beliefs That Will Affect Care: None Current Living Situation: Alone Feels Safe at Home: Yes Safety Concerns: Feels Safe At This Time Assistive Devices: None Review of Systems 2 Review of Systems: ROS: Gen: Denies weakness, fevers, weight loss Eyes: No eye redness, or pain, no recent vision changes Resp: No SOB, no cough Cardio:As per HPI, otherwise (-) No palpitations/irregular beats GI: No abdominal pain, no nausea/vomiting : Denies pain on urination Skin: No jaundice, itching or new rashes Physical Exam 2 Constitutional: + obese and well groomed; no acute distr ess Eyes: PERRL, conjunctivae normal, anicteric sclerae ENMT: external ear and nose normal, oropharynx normal Neck: trachea midline, no thyromegaly Respiratory: normal respiratory effort, lungs clear to auscultation Cardiovascular: RRR, no murmur, no edema Gastrointestinal (Abdomen): Obese, soft, non distended, tender in the epigastric, LUQ and periumbilical areas. Skin: no rashes, warm and dry Neurologic: PERRL, EOMI, accommodation nl, no face palsy, no dysarthria Psychiatric: A+Ox3, euthymic affect Lymphatic: no cervical or axillary lymphadenopathy Results & Data Vital Signs (Past 12 Hours) Vital Signs Temp Pulse Pulse Resp BP BP Pulse Ox 05/27/23 08:07 36.3 C L 60 16 122/76 97 05/27/23 04:10 36.4 C L 65 18 137/81 96 05/27/23 04:08 62 05/27/23 01:06 63 05/27/23 00:14 60 18 94/60 L 96 05/27/23 00:10 60 18 94/63 L 95 05/26/23 23:00 86/67 L 05/26/23 23:00 60 20 96 05/26/23 22:40 05/26/23 22:00 70 15 05/26/23 21:47 73 05/26/23 21:00 131/84 05/26/23 21:00 69 12 96 Pulse Ox O2 Del Method 05/27/23 08:07 Room Air 05/27/23 04:10 Room Air 05/27/23 04:08 05/27/23 01:06 05/27/23 00:14 Room Air 05/27/23 00:10 Room Air 05/26/23 23:00 05/26/23 23:00 05/26/23 22:40 99 05/26/23 22:00 05/26/23 21:47 05/26/23 21:00 05/26/23 21:00 Laboratory Results 05/27/23 06:15 05/27/23 06:15 Diagnostic Findings CTAP w IV 05/26/23: Corinna mesentery with prominent mesenteric lymph nodes is noted. 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 (1) Hematemesis Nausea presence: with nausea Qualified Code(s): K92.0 - Hematemesis
--- OUTSIDE RECORDS SUMMARY | 2023-05-27 09:24 | External Medical Summary ---
Author Name Unknown Address Unknown Organization L1A:[facility] [address] [place] [address] Laboratory Report Ordering Provider Test Date Status RENATE GHOSH 05/10/2023 08:16:00 Final Observation Date Value Abnormality Reference (Units ) Status aPTT 05/10/2023 08:39:44 28.9 20.2-28.9 (sec.) Final Performing Location [facility] [address] [place] [address]
--- OUTSIDE RECORDS SUMMARY | 2023-05-27 09:24 | External Medical Summary | Continuity of Care Document ---
Author Name Unknown Organization [facility] Address [address] [place] [address] [phone] Encounter [facility] [id number] Date(s): 04/23/23 - 04/23/[address] [id number] [phone] Encounter Diagnosis Chest discomfort(Discharge Diagnosis) - 04/23/23 Adenoviral infection(Discharge Diagnosis) - 04/23/23 Discharge Disposition: Home or Self Care Attending Physician: MD Gibran, Ron Allergies, Adverse Reactions, Alerts Substance Reaction Severity Status ibuprofen Wheezing Dyspnea Anaphylaxis Active phenytoin Unknown Active gadopentetate dimeglumine Itching Urticaria Active ketorolac Rash/Dermatitis Anaphylaxis Active topiramate Urticaria Active penicillins Wheezing Active iodinated radiocontrast dyes Anaphylaxis Severe Active Novocain Active Ativan low heart rate Active Magnevist Itchiness with no hives or rash Active Depakote Active Adhesive bandage Rash Mild Active seafood Active cloZAPine Unknown Active iodine Anaphylaxis Severe Active NSAIDS (nonsteroidal anti-inflammatory agents) Active Functional Status 04/23/23 History of Fall in Last 3 Months Gonzales N o Presence of Secondary Diagnosis Gonzales No Use of Ambulatory Aid Gonzales None/bedrest /nurse assist IV/Heparin Lock Fall Risk Gonzales No Gait/Transferring Fall Risk Gonzales Normal /bedrest/immobile Mental Status Fall Risk Gonzales Oriented t o own ability Gonzales Fall Risk Score 0 Gonzales Fall Risk No Risk 04/23/23 Speech Pattern Clear Immunizations Given and Recorded Vaccine Date Status Refusal Reason tetanus/diphtheria/pertuss, acel (Tdap) 08/22/22 G iven Medications acetaminophen 500 mg oral tablet Start: 03/24/22 13:15:00 EST, 1 tab, PO, q6h, PRN: as needed for pain Start Date: 03/24/22 Status: Ordered Aspercreme 10% topical cream Start: 11/26/22 8:44:00 EDT, 1 appl, topical, qid, PRN: Pain Start Date: 11/26/22 Status: Ordered atorvastatin Start: 06/14/18 4:54:00 EDT, 40 mg =, PO, Daily Start Date: 06/14/18 Status: Ordered empagliflozin 25 mg oral tablet Start: 07/19/21 2:19:00 EDT, 25 mg =, PO, qAM Start Date: 07/19/21 Status: Ordered Flonase 50 mcg/inh nasal spray Start: 03/22/22 22:14:00 EST, 1 spray, each nostril, Daily, PRN: as needed for allergy symptoms Start Date: 03/22/22 Status: Ordered Humira Pen (citrate free) 40 mg/0.4 mL SQ kit Start: 04/23/23 8:19:00 EST, 2 each, 0 Refill(s) Start Date: 04/23/23 Status: Ordered Lantus Solostar Pen 100 units/mL subcutaneous solution Start: 04/29/22 10:37:00 EST, 26 unit =, subQ, qhs Start Date: 04/29/22 Status: Ordered lidocaine 5% patch Start: 03/22/22 22:14:00 EST, 1 patch, topical, Daily, back / chest, PRN: pain Start Date: 03/22/22 Status: Ordered Lyrica 200 mg oral capsule Start: 07/15/21 14:36:00 EDT, 1 cap, PO, bid Start Date: 07/15/21 Status: Ordered magnesium oxide 400 mg (241.3 mg elemental magnesium) oral tablet Start: 12/09/21 10:15:00 EDT, 1 tab, PO, Daily Start Date: 12/09/21 Status: Ordered metformin 500 mg oral tablet Start: 09/09/12 2:35:00, 2 tab, PO, bid Start Date: 09/09/12 Status: Ordered multivitamin Start: 11/26/22 8:46:00 EDT, 1 tab, PO, Daily Start Date: 11/26/22 Status: Ordered NovoLOG FlexPen 100 units/mL injectable solution Start: 04/29/22 10:37:00 EST, See Instructions, sliding scale with meals Start Date: 04/29/22 Status: Ordered Protonix Start: 02/01/11 3:47:00 EST, 40 mg =, PO, bid Start Date: 02/01/11 Status: Ordered rivaroxaban 20 mg oral tablet Start: 07/22/21 10:57:00 EDT, 1 tab, PO, qAM, with breakfast Start Date: 07/22/21 Status: Ordered Vitamin B1 50 mg oral tablet Start: 11/26/22 8:46:00 EDT, 1 tab, PO, Daily Start Date: 11/26/22 Status: Ordered Problem List Condition Confirmation Course Effective Dates Status Health Status Informant Gastropathy Confirmed Active Eosinophilic esophagitis Confirmed Active Factor V Leiden mutation Confirmed Active Fibromyalgia Confirmed Active GERD (gastroesophageal reflux disease) Confirmed Active Hypercholesterolemia Confirmed Active Paroxysmal supraventricular tachycardia Confirmed Active Pericarditis Confirmed Active Mesenteric panniculitis Confirmed Active Type 2 diabetes mellitus Confirmed Active Diagnosis Diagnosis Type Effective Dates Health Status Clinical Service Informant Chest discomfort Discharge Diagnosis 04/23/23 Adenoviral infection Discharge Diagnosis 04/23/23 Procedures Procedure Date Related Diagnosis Body Site Status REMOVAL OF GALLBLADDER 1999 Co mpleted APPENDECTOMY 1993 Completed Results Laboratory List Name Date Troponin T ( 5th Gen) 04/23/23 Complete Blood Count w Differential (CBC w Platelets and Diff) 04/23/23 Comprehensive Metabolic Panel (CMP) 04/23 Lipase Level 04/23/23 Troponin T ( 5th Gen) 04/23/23 Strep A Rapid Antigen Nurse POC (ED) (Ra pid Strep Nurse POC (ED)) 04/23/23 Most recent to oldest [Reference Range]: 1 2 eGFR CKD-EPI [>60 mL/min/1.73 m2] >90 mL /min/1.73 m2 (04/23/23 8:04 AM) Rapid Strep Screen, POC Negative 1 (04/23/23 8:33 AM) Rapid Strep Screen Ref Range [negative] (04/23/23 8:33 AM) Culture sent to lab for confirmation Yes (04/23/23 8:33 AM) Troponin T ( 5th Gen) [<22 ng/L] <6 ng/L 2 (04/23/23 9:30 AM) <6 ng/L 3 (04/23/23 8:04 AM) Troponin T ( 5th Gen) Delta NOT CALCULAT ED (04/23/23 9:30 AM) NOT CALCULATED (04/23/23 8:04 AM) Estimated CrCl 201.33 mL/min (04/23/23 9:04 AM) MPV [9.0-12.2 fL] 9.3 fL (04/23/23 8:04 AM) Immature Gran% 0.2 % (04/23/23 8:04 AM) Neut% 61.4 % (04/23/23 8:04 AM) Lymph% 23.9 % (04/23/23 8:04 AM) Haines% 7.9 % (04/23/23 8:04 AM) Baso% 0.9 % (04/23/23 8:04 AM) Eos% 5.7 % (04/23/23 8:04 AM) Immat Gran, Abs [0-0.4 K/uL] 0.01 K/uL (04/23/23 8:04 AM) Neut, Abs [2.0-7.7 K/uL] 3.88 K/uL (04/23/23 8:04 AM) Lymph, Abs [1.0-3.4 K/uL] 1.51 K/uL (04/23/23 8:04 AM) Haines, Abs [0-1.0 K/uL] 0.50 K/uL (04/23/23 8:04 AM) Baso, Abs [0-0.1 K/uL] 0.06 K/uL (04/23/23 8:04 AM) Eos, Abs [0-0.5 K/uL] 0.36 K/uL (04/23/23 8:04 AM) Type of Diff: AUTO (04/23/23 8:04 AM) RDW [11.5-14.2 %] 14.1 % (04/23/23 8:04 AM) Anion Gap [5-14 mmol/L] 12 mmol/L (04/23/23 8:04 AM) Alb [3.5-5.2 g/dL] 4.2 g/dL (04/23/23 8:04 AM) Alk Phos [40-130 unit/L] 114 unit/L (04/23/23 8:04 AM) ALT [0-41 unit/L] 21 unit/L (04/23/23 8:04 AM) AST [0-40 unit/L] 19 unit/L (04/23/23 8:04 AM) BUN [6-23 mg/dL] 16 mg/dL (04/23/23 8:04 AM) Ca [8.4-10.2 mg/dL] 9.4 mg/dL (04/23/23 8:04 AM) Cl- [98-107 mmol/L] 108 mmol/L *HI* (04/23/23 8:04 AM) HCO3 [22-29 mmol/L] 22 mmol/L (04/23/23 8:04 AM) Cret [0.70-1.30 mg/dL] 0.69 mg/dL *LOW* (04/23/23 8:04 AM) Glu [74-109 mg/dL] 193 mg/dL 4 *HI* (04/23/23 8:04 AM) Hct [39-48 %] 37.2 % *LOW* (04/23/23 8:04 AM) Hgb [13.0-17.0 g/dL] 12.2 g/dL *LOW* (04/23/23 8:04 AM) K [3.5-5.1 mmol/L] 4.6 mmol/L (04/23/23 8:04 AM) Lipase [13-60 unit/L] 24 unit/L (04/23/23 8:04 AM) MCH [28-33 pg] 29.1 pg (04/23/23 8:04 AM) MCHC [32-36 g/dL] 32.8 g/dL (04/23/23 8:04 AM) MCV [81-96 fL] 88.8 fL (04/23/23 8:04 AM) Na [136-145 mmol/L] 142 mmol/L (04/23/23 8:04 AM) Plts [150-350 K/uL] 301 K/uL (04/23/23 8:04 AM) RBC [4.40-5.60 M/uL] 4.19 M/uL *LOW* (04/23/23 8:04 AM) T Bili [0.0-1.2 mg/dL] 0.2 mg/dL (04/23/23 8:04 AM) Prot [6.4-8.3 g/dL] 7.0 g/dL (04/23/23 8:04 AM) WBC [4.0-10.4 K/uL] 6.32 K/uL (04/23/23 8:04 AM) 1Result Comment: Performed at: [address] [place] [address] 2Result Comment: To use the high-sensitivity cTnT assay, at least 2 blood samples should be drawnat time 0 and then at least 1h later. If the cTnT concentration at time 0 is greater than or equal to 53 ng/L in a patient whose clinicalpresentation is consistent with acute coronary syndrome, then there is a high likelihood that acutemyocardial injury is present. However, confirmation of acute myocardial injury still requires a second cTnT christophe drawn. Delta cut-offs for determining the presence of acute myocardial injury have beenvalidated at the 1-hour and 2-hour time points referenced here. A 1-hour delta troponin >5 ng/L indicates acute myocardial injury. A 2h delta troponin >7 ng/L indicates acute myocardial injury. Values below these are consistent with chronic myocardial injury. For patients where there is a high index of suspicion for acute coronary syndrome, repeating the tests at 1 or 2 hours, and calculating a new delta, may be indicated. If the second sample is collected in less than 60 minutes, no delta calculationwill be performed. Deltas for blood samples drawn more than 3 hours apart have not been validated and will not be reported. Please interpret with caution. 3Result Comment: To use the high-sensitivity cTnT assay, at least 2 blood samples should be drawnat time 0 and then at least 1h later. If the cTnT concentration at time 0 is greater than or equal to 53 ng/L in a patient whose clinicalpresentation is consistent with acute coronary syndrome, then there is a high likelihood that acutemyocardial injury is present. However, confirmation of acute myocardial injury still requires a second cTnT christophe drawn. Delta cut-offs for determining the presence of acute myocardial injury have beenvalidated at the 1-hour and 2-hour time points referenced here. A 1-hour delta troponin >5 ng/L indicates acute myocardial injury. A 2h delta troponin >7 ng/L indicates acute myocardial injury. Values below these are consistent with chronic myocardial injury. For patients where there is a high index of suspicion for acute coronary syndrome, repeating the tests at 1 or 2 hours, and calculating a new delta, may be indicated. If the second sample is collected in less than 60 minutes, no delta calculationwill be performed. Deltas for blood samples drawn more than 3 hours apart have not been validated and will not be reported. Please interpret with caution. 4Result Comment: ADA recommendation for FASTING Serum/Plasma Glucose: Normal: 70-100 mg/dL Prediabetes: 100-125 mg/dL Diabetes: 126 mg/dL or higher Orders for Microbiology Reports Name Date Throat Culture for Group A Strep 04/23/23 Respiratory Pathogen Panel, by PCR (RVP) 04/23/23 Microbiology Reports TEST:Throat.Scr STATUS:Auth (Verified) BODY SITE: SOURCE:Throat COLLECTED DATE/TIME:04/23/23 8:40 AM Status FINAL 04/25/2023 TEST:Respiratory Virus Panel, by PCR STATUS:Auth (Verified) BODY SITE: SOURCE:Nasal/Pharyngeal COLLECTED DATE/TIME:04/23/23 8:04 AM Culture ADENOVIRUS DETECTED ORGANISM:Adenovirus detected Radiology Reports * Exam Date Time Procedure Performing Provider Status 04/23/23 7:46 AM XR Chest 2 Views Arianne Hayes; Marina grant Notes: (XR Chest 2 Views) Reason For Exam: chest discomfort XR Chest 2 Views EXAMINATION: XR Chest 2 Views CLINICAL HISTORY: Chest discomfort COMPARISON: 02/19/2023, CT 11/25/2022 FINDINGS: PA and lateral views. Pacemaker generator pack in the left chest wall with leads in the right atrium and right ventricle. Hypoinflation. Cardiomediastinal silhouette is normal. Pulmonary vasculature normal. Bilateral lungs are clear. No pneumothorax. No pleural effusion. No acute osseous abnormality. IMPRESSION: Hypoinflation, otherwise no acute cardiopulmonary process. Dr. Olu King is the dictating resident. Finalized reports status indicates that the attending has reviewed the images and report, and agrees with the interpretation. Preliminary report status should be regarded as NOT interpreted by the attending radiologist. Workstation ID: [id number] Final Dictated by:DO King Michael F Dictated DT/TM:04/23/2023 8:22 Resident:DO King Michael F Signed by:MD Gottlieb Eric A Signed (Electronic Signature):04/23/2023 8:21 a Vital Signs Most recent to oldest [Reference Range]: 1 2 Height 188 cm (04/23/23 6:51 AM) Patient Weight 131.8 kg (04/23/23 6:51 AM) Body Mass Index 37.29 kg/m2 (04/23/23 6:51 AM) Temperature [36.5-37.9 DegC] 36.6 DegC (04/23/23 11:27 AM) 36.4 DegC *LOW* (04/23/23 6:51 AM) Heart Rate 73 bpm (04/23/23 11:27 AM) 80 bpm (04/23/23 6:51 AM) Respiratory Rate 22 br/min (04/23/23 11:27 AM) 20 br/min (04/23/23 6:51 AM) Blood Pressure 114/74mmHg (04/23/23 11:27 AM) 133/95mmHg (04/23/23 6:51 AM) Mean Blood Pressure 105 mmHg (04/23/23 6:51 AM) Cuff Pulse Pressure 40 mmHg (04/23/23 11:27 AM) 38 mmHg (04/23/23 6:51 AM) BP Location # 1 Left Arm (04/23/23 11:27 AM) Left Arm, Other: FOREARM (04/23/23 6:51 AM) Social History Social History Type Response Smoking Status Never smoked cigaret jessica Sex Male Cardiology * Contributor_system, [id number]: VERIFY, PERFORM Event Display: EKG Authored Date: [id number] Please click on link to see image. * Contributor_system, [email or web address]: VERIFY, PERFORM Event Display: EKG Authored Date: [id number] Please click on link to see image. Emergency department Summary note * TAMMY Edwards [place] E: MODIFY, MODIFY, MODIFY, PERFORM, MODIFY, MODIFY, MODIFY, MODIFY Event Display: ED Summary Authored Date: [id number] Basic Information Time Seen: TAMMY Edwards [place]ryn[place] E 04/23/2023 07:21 Chief Complaint sore throat x 5 days, CP started this morning. hx cardiac problems, pacer. 7/10 pain. denies n/v/d/f/c. denies cough. intermittent SOB. History of Present Illness David is a 43-year-old male with a past medical history of eosinophilic esophagitis, factor V Leiden mutation, GERD, hypercholesterolemia, diabetes,pacemakerwho comes to the emergency departmentcomplaining of sore throat for the past 5 days and chest pain sincethis morning. Patient states that 5 days ago he developeddiscomfort in his throat, predominantly on the left, but is worse with swallowing. He states he can get this from time to time. He denies fever and/or chills. He has no associated congestion, cough, sinus tenderness. This morning,he woke from sleepwith a 6 out of 10 chest painaround 0620. He states that the discomfortis predominantly centraland slightly to the leftand radiates into the left arm. He has mild shortness of breath when ascendingsteps. He tried taking a Tylenol at home but states he has noticed no change in his discomfort. He rates the discomfort a 6 out of 10. The discomfort does not radiate into his jaw, neck, back. Review of Systems Constitutional symptoms:no sweats, no fever, no chills. Skin symptoms: No jaundice, no rash. Eye symptoms: Vision unchanged. ENMT symptoms:sore throat, no nasal congestion. Respiratory symptoms: No Shortness of breath, No cough,no hemoptysis Cardiovascular symptoms: Chest pain, No palpitations, Gastrointestinal symptoms:No Nausea, no abdominal pain, no vomiting, no diarrhea Musculoskeletal symptoms: No back pain, No joint pain Neurologic symptoms: No headache, no dizziness, no numbness, no tingling, no weakness. Hematologic/Lymphatic symptoms: Bleeding tendency negative, bruising tendency negative. Physical Exam Vitals & Measurements T:36.4C HR:80(Monitored) RR:20 BP:133/95 SpO2:98% Oxygen Therapy:Room air HT:188cm WT:131.800kg(Dosing) WT:131.8kg BMI:37.29 General: Alert, no acute distress. non-toxic Skin:Warm, dry, pink, intact.no rash noted Head:Normocephalic, atraumatic. Neck:Supple, trachea midline.No lymphadenopathy Eye:Normal conjunctiva. Ears, nose, mouth and throat:Oral mucosa moist.Mild erythema noted to the left posterior pharynx. There is no exudate or abscess seen. Patient is able to handle his own secretions. No deviation of the uvula noted. Nonasal congestion,sinus tenderness to palpation. Cardiovascular:Regular rate and rhythm, No murmur, Normal peripheral perfusion.No tenderness to palpation of the anterior chest Respiratory:Lungs are clear to auscultation, respirations are non-labored, breath sounds are equal, Symmetrical chest wall expansion. Gastrointestinal:Soft, Nontender, Non distended.No guarding and/or peritoneal signs Back:Normal alignment. Musculoskeletal:Normal ROM. Neurological: Alert and oriented to person, place, time, and situation Psychiatric:Cooperative, appropriate mood & affect. Medical Decision Making Patient is a 43-year-old malewho comes to the emergency department complaining of sore throat forthe past 5 days along with chest discomfort that started at 06 20 this morning. The discomfort ispredominantly central and slightly to the leftradiating into the left arm. He attempted to takeTylenol at home but has noticed no relief in his discomfort. He deniesother symptoms such as cough, fever, chills, congestion. Deniesrecent trauma to the chest and states that he did nothing yesterday as he was off from work and slept most of the day. Physical exam is fairly benign aside from mild erythema to the posterior pharynx on the left side without exudate and/or abscess. The heart is regular rate and rhythm without murmurs, gallops, rubs. Lungs are clear to auscultation bud aterally without rales, wheezes, rhonchi. There is no tenderness to palpation of the anterior chest. Will obtain CBC, CMP, lipase,troponin, chest x-ray, rapid strep, RVP. EKG completed from triageshows no concern for ST elevation [place]. He is in normal sinus rhythm with a rate of 75. Patient is allergic to NSAIDsand had no relief from the Tylenol taken at home. Unable to giveASA due to NSAIDallergy. Will give 2 mg of IV morphineand recheck pain at a later time. Reexamination/Reevaluation 939 - recheck - patient called nursing over after waking from sleep and states that his discomfortis now into his left jaw. States his pain was resolved initially with pain meds but has now returned. patient calm and in NAD. 2nd EKG ordered and repeat pain medications. labs reviewed showing slightly low H&H of 12.2 abd 37.2 but similar when compared to prior. no leukocytosis. troponin negative (1st). chest x-ray shows no acute reason for patient's discomfort. EKG completed and without significant change from original EKG done earlier today. 1103 - recheck - 2nd troponin negative. Patient informed of all results including + RVP for adenovirus. pain has improved. Patient will be discharged home at this time, asked to follow up with his PCP within the week, and given return precautions. He voices understanding with the plan and had no further questions or concerns at the time of d/c. Assessment/Plan 1.Chest discomfort 2.Adenoviral infection Patient Education Adenovirus Infection, Adult Chest Pain (Nonspecific), Easy to Read (CUSTOM) Follow Up With When Contact Information Follow up with primary care provider Within Call physician within next business day Additional Instructions: Please follow-up with your primary care provider within the week for recheck. Please return to the emergency department if your symptoms change or worsen in any way includingworsening or changing chest pain, shortness of breath, fever, chills. Medication Reconciliation Unchanged acetaminophen (acetaminophen 500 mg oral tablet)1 tab(s) by mouth every 6 hours as needed as neededfor pain. adalimumab (Humira Pen (citrate free) 40 mg/0.4 mL SQ kit)2 each, 0 Refill(s). [id number] Milligram by mouth once daily. empagliflozin (empagliflozin 25 mg oral tablet)25 Milligram by mouth once a day (in the morning). fluticasone nasal (Flonase 50 mcg/inh nasal spray)1 spray(s) in each nostril once daily as needed as needed for allergy symptoms. insulin aspart (NovoLOG FlexPen 100 units/mL injectable solution)sliding scale with meals. insulin glargine (Lantus Solostar Pen 100 units/mL subcutaneous solution)26 unit(s) subcutaneously at bedtime. lidocaine topical (lidocaine 5% patch)1 patch(es) topically once daily as needed pain. back / chest. magnesium oxide (magnesium oxide 400 mg (241.3 mg elemental magnesium) oral tablet)1 tab(s) by mouth once daily. metformin (metformin 500 mg oral tablet)2 tab(s) by mouth 2 times daily. multivitamin1 tab(s) by mouth once daily. pantoprazole (Protonix)40 Milligram by mouth 2 times daily. pregabalin (Lyrica 200 mg oral capsule)1 cap by mouth 2 times daily. rivaroxaban (rivaroxaban 20 mg oral tablet)1 tab(s) by mouth once a day (in the morning). with breakfast. thiamine (Vitamin B1 50 mg oral tablet)1 tab(s) by mouth once daily. trolamine salicylate topical (Aspercreme 10% topical cream)1 kaye topically 4 times daily as needed Pain. Discontinued amitriptyline (amitriptyline 25 mg oral tablet)1 tab(s) by mouth once daily. HYDROmorphone (HYDROmorphone 4 mg oral tablet)1 tab(s) by mouth every 6 hours as needed as needed for pain. RA pain. metoprolol (metoprolol tartrate 25 mg oral tablet)1 tab(s) by mouth 2 times daily for 30 Days. Refills: 0. Problem List/Past Medical History Ongoing Eosinophilic esophagitis Factor V Leiden mutation Fibromyalgia Gastropathy GERD (gastroesophageal reflux disease) Hypercholesterolemia Mesenteric panniculitis Paroxysmal supraventricular tachycardia Pericarditis Type 2 diabetes mellitus Procedure/Surgical History REMOVAL OF GALLBLADDER (1999)APPENDECTOMY (1993) Medication Administration Administered: Medications: morphine, 2 mg, IV Push (04/23/2023 08:16 EST) morphine, 2 mg, IV Push (04/23/2023 09:59 EST) Allergies iodinated radiocontrast dyes(Severe)Anaphylaxis iodine(Severe)Anaphylaxis Adhesive bandage (Mild)Rash Ativanlow heart rate Depakote MagnevistItchiness with no hives or rash NSAIDS (nonsteroidal anti-inflammatory agents) Novocain cloZAPineUnknown gadopentetate dimeglumineItching, Urticaria ibuprofenWheezing, Dyspnea, Anaphylaxis ketorolacRash/Dermatitis, Anaphylaxis penicillinsWheezing phenytoinUnknown seafood topiramateUrticaria Social History Employed Denies tobacco use Denies drug use Lab Results Chemistry LATEST RESULTS HISTORICAL RESULTS Na 04/23/23 08:04 142 mmol/L 03/09/23 143 mmol/L K 04/23/23 08:04 4.6 mmol/L 03/09/23 4.2 mmol/L Cl- 04/23/23 08:04 108 mmol/L High 03/09/23 108 mmol/L High HCO3 04/23/23 08:04 22 mmol/L 03/09/23 23 mmol/L Anion Gap 04/23/23 08:04 12 mmol/L 03/09/23 12 mmol/L BUN 04/23/23 08:04 16 mg/dL 03/09/23 16 mg/dL Cret 04/23/23 08:04 0.69 mg/dL Low 03/09/23 0.94 mg/dL Estimated CrCl 04/23/23 09:04 201.33 03/09/23 150.04 eGFR CKD-EPI 04/23/23 08:04 >90 mL/min/1.73 m2 03/09/23 >90 mL/min/1.73 m2 Glu 04/23/23 08:04 193 mg/dL High 03/09/23 293 mg/dL High Ca 04/23/23 08:04 9.4 mg/dL 03/09/23 9.3 mg/dL CBC LATEST RESULTS HISTORICAL RESULTS WBC 04/23/23 08:04 6.32 K/uL 03/09/23 5.47 K/uL Hgb 04/23/23 08:04 12.2 g/dL Low 03/09/23 12.4 g/dL Low Hct 04/23/23 08:04 37.2 % Low 03/09/23 36.5 % Low RBC 04/23/23 08:04 4.19 M/uL Low 03/09/23 4.11 M/uL Low MCV 04/23/23 08:04 88.8 fL 03/09/23 88.8 fL MCHC 04/23/23 08:04 32.8 g/dL 03/09/23 34.0 g/dL MCH 04/23/23 08:04 29.1 pg 03/09/23 30.2 pg RDW 04/23/23 08:04 14.1 % 03/09/23 14.7 % High Plts 04/23/23 08:04 301 K/uL 03/09/23 243 K/uL MPV 04/23/23 08:04 9.3 fL 03/09/23 10.1 fL Type of Diff: 04/23/23 08:04 AUTO 03/09/23 AUTO Immature Gran% 04/23/23 08:04 0.2 % 03/09/23 0.4 % Neut% 04/23/23 08:04 61.4 % 03/09/23 68.9 % Lymph% 04/23/23 08:04 23.9 % 03/09/23 20.3 % Haines% 04/23/23 08:04 7.9 % 03/09/23 8.6 % Baso% 04/23/23 08:04 0.9 % 03/09/23 0.5 % Eos% 04/23/23 08:04 5.7 % 03/09/23 1.3 % Immat Gran, Abs 04/23/23 08:04 0.01 K/uL 03/09/23 0.02 K/uL Neut, Abs 04/23/23 08:04 3.88 K/uL 03/09/23 3.77 K/uL Lymph, Abs 04/23/23 08:04 1.51 K/uL 03/09/23 1.11 K/uL Haines, Abs 04/23/23 08:04 0.50 K/uL 03/09/23 0.47 K/uL Baso, Abs 04/23/23 08:04 0.06 K/uL 03/09/23 0.03 K/uL Eos, Abs 04/23/23 08:04 0.36 K/uL 03/09/23 0.07 K/uL Liver/GI LATEST RESULTS HISTORICAL RESULTS ALT 04/23/23 08:04 21 unit/L 03/09/23 20 unit/L T Bili 04/23/23 08:04 0.2 mg/dL 03/09/23 0.3 mg/dL Alk Phos 04/23/23 08:04 114 unit/L 03/09/23 107 unit/L AST 04/23/23 08:04 19 unit/L 03/09/23 14 unit/L Lipase 04/23/23 08:04 24 unit/L 03/09/23 37 unit/L Nutrition LATEST RESULTS HISTORICAL RESULTS Alb 04/23/23 08:04 4.2 g/dL 03/09/23 4.3 g/dL Prot 04/23/23 08:04 7.0 g/dL 03/09/23 6.7 g/dL Cardiac/Lipi LATEST RESULTS Troponin T ( 5th Gen) 04/23/23 09:30 <6 ng/L Troponin T ( 5th Gen) Delta 04/23/23 09:30 NOT CALCULATED Immunology LATEST RESULTS HISTORICAL RESULTS Respiratory Virus Panel, by PCR 04/23/23 08:04 Final: Pos. Critical 11/25/22 Final: Cx/Gram Stn LATEST RESULTS Rapid Strep Screen, POC 04/23/23 08:33 Negative Rapid Strep Screen Ref Range 04/23/23 08:33 [negative] Culture sent to lab for confirmation 04/23/23 08:33 Yes Diagnostic Results (04/23/2023 07:46 EST XR Chest 2 Views) * Final Report * Reason For Exam chest discomfort XR Chest 2 Views EXAMINATION: XR Chest 2 Views CLINICAL HISTORY: Chest discomfort COMPARISON: 02/19/2023, CT 11/25/2022 FINDINGS: PA and lateral views. Pacemaker generator pack in the left chest wall with leads in the right atrium and right ventricle. Hypoinflation. Cardiomediastinal silhouette is normal. Pulmonary vasculature normal. Bilateral lungs are clear. No pneumothorax. No pleural effusion. No acute osseous abnormality. IMPRESSION: Hypoinflation, otherwise no acute cardiopulmonary process. Dr. Olu King is the dictating resident. Finalized reports status indicates that the attending has reviewed the images and report, and agrees with the interpretation. Preliminary report status should be regarded as NOT interpreted by the attending radiologist. Workstation ID: [id number] Signature Line Final Dictated by:DO King Michael F Dictated DT/TM:04/23/2023 8:22 Resident:DO King Michael F Signed by:MD Gottlieb Eric A Signed (Electronic Signature):04/23/2023 8:21 a IMAGE This document has an image Result Type:XR Chest 2 Views Date of Service:April 23, 2023 07:46 EST Authorization Status:Final Subject:XR Chest 2 Views Author or Import Date:DO King Michael F on April 23, 2023 08:22 EST Verified By:MD Gottlieb Eric A on April 23, 2023 08:21 EST Encounter info:[id number], [facility], Emergency, 04/23/2023 - [1] [1]XR Chest 2 Views; MD Gottlieb Eric A 04/23/2023 07:46 EST Electronic Signature on File Electronically Reviewed/Signed by: Ayden Edwards PA-C Author Signature Dt/Tm:04/23/2023 11:10 AM Department of Emergency Medicine Electronically Reviewed/Signed by: Ron Leary MD Cosigner Signature Dt/Tm: 04/24/2023 06:34 AM Department of Emergency Medicine EED Patient Care team information Care Team Personnel Name: Rasheeda Benitez Amy E Position: Pharmacist Member Role: Pharmacy - Lifetime Address: Address: [place] [address] [place] Name: Rasheeda Eng Keri Position: Pharmacist Member Role: Pharmacy - Lifetime Name: MD Gibran, Ron Position: Physician - Emerg Med SA Member Role: On-Service (7 days after disch/visit) Address: Address: [address] [place] [address] [place] Name: TAMMY Edwards, Ayden Hoyos Position: Physician Book Publisher - Emerg Med Member Role: Consulting (5 day after disch/visit) Address: Address: [address] [place] [address] [place] Name: HANK Taylor Jalen Position: RN Member Role: Direct Care Nurse Name: Jeanine Ying Position: Admissions I Name: BERYL Santacruz Ashley Position: BERYL Member Role: BERYL Care Team Related Persons Name: LIANNELISBETH Address: [address] [place] [id number]
--- OUTSIDE RECORDS SUMMARY | 2023-05-27 09:24 | External Medical Summary ---
Author Name Unknown Address Unknown Organization L1A:[facility] [address] [place] [address] Laboratory Report Ordering Provider Test Date Status RENATE GHOSH 05/10/2023 08:16:00 Final Added by Discern rule. Observation Date Value Abnormality Reference (Units ) Status Segs 05/10/2023 08:26:03 46.1 34.0-67.9 (%) Final Lymphs % 05/10/2023 08:26:03 33.1 21.8-53.1 (%) Final Monos 05/10/2023 08:26:03 9.0 5.3-12.2 (%) Final Eosinophils 05/10/2023 08:26:03 10.9 Above high normal 0.8-7.0 (%) Final Basos 05/10/2023 08:26:03 0.9 0.2-1.2 (%) Final Absolute Segs 05/10/2023 08:26:03 1.99 1.78-5.38 (x10e3/uL) Final Lymphs, absolute 05/10/2023 08:26:03 1.43 1.32-3.57 (x10e3/uL) Final Monos, Abs 05/10/2023 08:26:03 0.39 0.30-0.82 (x10e3/uL) Final Eos, Abs 05/10/2023 08:26:03 0.47 0.04-0.54 (x10e3/uL) Final Basos, Abs 05/10/2023 08:26:03 0.04 0.01-0.08 (x10e3/uL) Final Performing Location [facility] [address] [place] [id number]
--- OUTSIDE RECORDS SUMMARY | 2023-05-27 09:24 | External Medical Summary ---
Author Name Unknown Address Unknown Organization L1A:[facility] [address] [place] [address] Laboratory Report Ordering Provider Test Date Status RENATE GHOSH 05/10/2023 08:16:00 Final Observation Date Value Abnormality Reference (Units ) Status WBC, Total 05/10/2023 08:26:03 4.3 4.2-9.0 (x10e3/uL) Final RBC 05/10/2023 08:26:03 4.31 Below low normal 4.63-6.08 (x10e6/uL) Final Hemoglobin 05/10/2023 08:26:03 12.7 Below low normal 13.7-17.5 (g/dL) Final HCT 05/10/2023 08:26:03 38.6 Below low normal 40.1-51.0 (%) Final MCV 05/10/2023 08:26:03 89.6 79.0-92.2 (fl) Final MCH 05/10/2023 08:26:03 29.5 25.7-32.2 (pg) Final MCHC 05/10/2023 08:26:03 32.9 32.3-36.5 (g/dL) Final Platelets 05/10/2023 08:26:03 211 163-337 (x10e3/uL) Final RDW 05/10/2023 08:26:03 14.3 11.6-14.4 (%) Final MPV 05/10/2023 08:26:03 9.4 9.4-12.4 (fl) Final Slide? 05/10/2023 08:26:04 Auto Final Nucleated erythrocytes [Presence] in Blood by Automated count 05/10/2023 08:26:03 0.0 0.0-0.2 (%) Final Nucleated RBCs, Number 05/10/2023 08:26:03 0.000 0.000-0.012 (x10e3/uL) Final Performing Location [facility] [place] [id number]
--- OUTSIDE RECORDS SUMMARY | 2023-05-27 09:24 | External Medical Summary ---
Author Name Unknown Address Unknown Organization L1A[facility] [address] [place] [address] Laboratory Report Ordering Provider Test Date Status [...] MPV 05/10/2023 08:26:03 9.4 9.4-12.4 (fl) Final Nucleated erythrocytes [Presence] in Blood by Automated count 05/10/2023 08:26:03 0.0 0.0-0.2 (%) Final Nucleated RBCs, Number 05/10/2023 08:26:03 0.000 0.000-0.012 (x10e3/uL) Final Performing Location [facility] [address] [address]
--- OUTSIDE RECORDS SUMMARY | 2023-05-27 09:24 | External Medical Summary ---
Author Name Unknown Address Unknown Organization : Laboratory Report Ordering Provider Test Date Status RENATE GHOSH 05/10/2023 08:16:00 Final Observation Date Value Abnormality Reference (Units ) Status Glucose 05/10/2023 08:56:04 153 Above high normal 74-106 (mg/dl) Final BUN 05/10/2023 08:56:04 19 6-20 (mg/dl) Final Creatinine 05/10/2023 08:56:04 0.78 0.67-1.17 (mg/dl) Final Sodium, Whole Blood 05/10/2023 08:56:04 141 136-145 (mmol/L) Final Potassium, Whole Blood 05/10/2023 08:56:04 4.4 3.5-5.1 (mmol/L) Final Cl 05/10/2023 08:56:04 106 98-107 (mmol/L) Final CO2 05/10/2023 08:56:04 22 22-29 (mmol/L) Final Calcium 05/10/2023 08:56:04 9.6 8.6-10.0 (mg/dl) Final Calcium Children mg/dL
0 -10 days 7.6-10.4
10 days-2 yrs 9.0-11.0
2-12 yrs 8.8-10.8
12-18 yrs 8.4-10.2 Est GFR Afro Amer 05/10/2023 08:56:05 >60 >= 60 (ml/min) Final Estimated GFR 05/10/2023 08:56:05 >60 >=60 ( ml/min) Final Anion gap, Whole Blood 05/10/2023 08:56:04 13.0 5.3-16.4 (MEQ/L) Final Performing Location
--- OUTSIDE RECORDS SUMMARY | 2023-05-27 09:24 | External Medical Summary ---
Author Name Unknown Address Unknown Organization L1A:[facility] [address] [place] [address] Laboratory Report Ordering Provider Test Date Status RENATE GHOSH 05/10/2023 08:16:00 Final Observation Date Value Abnormality Reference (Units ) Status INR 05/10/2023 08:39:44 1.0 0.9-1.2 Final Therapeutic Recommendations for Warfarin
-
Disease INR Range
DVT/PE 2.0 - 3.0
Atrial Fibrillation 2.0 - 3.0
Myocardial Infarction 2.0 - 3.0
Mechanical Heart Valves 2.5 - 3.5 PT 05/10/2023 08:39:44 10.9 9.5-12.0 ( sec.) Final Performing Location [facility] [address] [place] [id number]
--- OUTSIDE RECORDS SUMMARY | 2023-05-27 09:25 | External Medical Summary | Continuity of Care Document ---
Author Name Unknown Organization [facility] Address [address] [place] [phone] [id number] Date(s): 03/09/23 - 03/09/[address] [phone] Encounter Diagnosis Type 2 diabetes mellitus(Discharge Diagnosis) - 03/09/23 Hyperglycemia(Discharge Diagnosis) - 03/09/23 Does not have primary care provider(Discharge Diagnosis) - 03/09/23 Discharge Disposition: Home or Self Care Attending Physician: MD Breezy, Romana T Allergies, Adverse Reactions, Alerts Substance Reaction Severity Status ibuprofen Wheezing Dyspnea Anaphylaxis Active phenytoin Unknown Active gadopentetate dimeglumine Itching Urticaria Active seafood Active ketorolac Rash/Dermatitis Anaphylaxis Active topiramate Urticaria Active penicillins Wheezing Active iodinated radiocontrast dyes Anaphylaxis Severe Active Novocain Active Ativan low heart rate Active Magnevist Itchiness with no hives or rash Active Depakote Active Adhesive bandage Rash Mild Active cloZAPine Unknown Active NSAIDS (nonsteroidal anti-inflammatory agents) Active iodine Anaphylaxis Severe Active Functional Status 03/09/23 History of Fall in Last 3 Months Gonzales N o Presence of Secondary Diagnosis Gonzales No Use of Ambulatory Aid Gonzales None/bedrest /nurse assist IV/Heparin Lock Fall Risk Gonzales No Gait/Transferring Fall Risk Gonzales Normal /bedrest/immobile Mental Status Fall Risk Gonzales Oriented t o own ability Gonzales Fall Risk Score 0 Gonzales Fall Risk No Risk Immunizations Given and Recorded Vaccine Date Status Refusal Reason tetanus/diphtheria/pertuss, acel (Tdap) 08/22/22 G iven Medications acetaminophen 500 mg oral tablet Start: 03/24/22 13:15:00 EST, 1 tab, PO, q6h, PRN: as needed for pain Start Date: 03/24/22 Status: Ordered amitriptyline 25 mg oral tablet Start: 09/19/22 1:02:00 EDT, 1 tab, PO, Daily Start Date: 09/19/22 Status: Ordered Aspercreme 10% topical cream Start: [...] allergy symptoms Start Date: 03/22/22 Status: Ordered HYDROmorphone 4 mg oral tablet Start: 02/19/23 23:47:00 EST, 1 tab, PO, q6h, Refills: 0, RA pain, PRN: as needed for pain Start Date: 02/19/23 Status: Ordered Lantus Solostar Pen 100 units/mL [...] PO, bid Start Date: 09/09/12 Status: Ordered metoprolol tartrate 25 mg oral tablet Start: 02/20/23 9:54:00 EST, 1 tab, PO, bid, Disp# 60 tab, Refills: 0, Pharmacy: [facility]/pharmacy #[id number] Start Date: 02/20/23 Stop Date: 03/22/23 Status: Ordered multivitamin Start: 11/26/22 8:46:00 EDT, [...] Effective Dates Health Status Clinical Service Informant Type 2 diabetes mellitus Discharge Diagnosis 03/09/23 Hyperglycemia Discharge Diagnosis 03/09/23 Does not have primary care provider Discharge Diagnosis 03/09/23 Non-Specified Procedures Procedure Date Related Diagnosis Body Site Status REMOVAL OF GALLBLADDER 1999 Co mpleted APPENDECTOMY 1993 Completed Results Laboratory List Name Date Glucose Meter (GLUCOSE METER) 03/09/23 Urine Analysis w/ Reflexed Microscopic. 03/09/23 Betahydroxybutyrate (Ketone, bld) 4 Complete Blood Count w Differential (CBC w Platelets and Diff) 03/09/23 Comprehensive Metabolic Panel (CMP) 03/09 Lipase Level 03/09/23 Osmolality 03/09/23 Venous Blood Gases (VBG Venous Blood Gas ) 03/09/23 Glucose Meter (GLUCOSE METER) 03/09/23 Most recent to oldest [Reference Range]: 1 2 eGFR CKD-EPI [>60 mL/min/1.73 m2] >90 mL /min/1.73 m2 (03/09/23 1:53 AM) Estimated CrCl 150.04 mL/min (03/09/23 2:57 AM) MPV [9.0-12.2 fL] 10.1 fL 1 (03/09/23 1:53 AM) Immature Gran% 0.4 % (03/09/23 1:53 AM) Neut% 68.9 % (03/09/23 1:53 AM) Lymph% 20.3 % (03/09/23 1:53 AM) Don[place]han% 8.6 % (03/09/23 1:53 AM) Baso% 0.5 % (03/09/23 1:53 AM) Eos% 1.3 % (03/09/23 1:53 AM) Immat Gran, Abs [0-0.4 K/uL] 0.02 K/uL (03/09/23 1:53 AM) Neut, Abs [2.0-7.7 K/uL] 3.77 K/uL (03/09/23 1:53 AM) Lymph, Abs [1.0-3.4 K/uL] 1.11 K/uL (03/09/23 1:53 AM) Doniphan, Abs [0-1.0 K/uL] 0.47 K/uL (03/09/23 1:53 AM) Baso, Abs [0-0.1 K/uL] 0.03 K/uL (03/09/23 1:53 AM) Eos, Abs [0-0.5 K/uL] 0.07 K/uL (03/09/23 1:53 AM) Type of Diff: AUTO (03/09/23 1:53 AM) RDW [11.5-14.2 %] 14.7 % *HI* (03/09/23 1:53 AM) Base Defic(v) 1.3 mmol/L (03/09/23 1:53 AM) Ketones, bld [0.02-0.27 mmol/L] 0.11 mmo l/L (03/09/23 1:53 AM) Anion Gap [5-14 mmol/L] 12 mmol/L (03/09/23 1:53 AM) Alb [3.5-5.2 g/dL] 4.3 g/dL (03/09/23 1:53 AM) Alk Phos [40-130 unit/L] 107 unit/L (03/09/23 1:53 AM) ALT [0-41 unit/L] 20 unit/L (03/09/23 1:53 AM) AST [0-40 unit/L] 14 unit/L 2 (03/09/23 1:53 AM) Bili (u) [NEG] NEGATIVE (03/09/23 1:54 AM) BUN [6-23 mg/dL] 16 mg/dL (03/09/23 1:53 AM) Ca [8.4-10.2 mg/dL] 9.3 mg/dL (03/09/23 1:53 AM) Cl- [98-107 mmol/L] 108 mmol/L *HI* (03/09/23 1:53 AM) HCO3 [22-29 mmol/L] 23 mmol/L (03/09/23 1:53 AM) Cret [0.70-1.30 mg/dL] 0.94 mg/dL (03/09/23 1:53 AM) Glu [74-109 mg/dL] 293 mg/dL 3 *HI* (03/09/23 1:53 AM) Gluc Meter [74-109 mg/dL] 216 mg/dL *HI* (03/09/23 4:10 AM) 328 mg/dL *HI* (03/09/23 12:29 AM) Hct [39-48 %] 36.5 % *LOW* (03/09/23 1:53 AM) Hgb [13.0-17.0 g/dL] 12.4 g/dL *LOW* (03/09/23 1:53 AM) K [3.5-5.1 mmol/L] 4.2 mmol/L 4 (03/09/23 1:53 AM) Ketones [NEG mg/dL] NEGATIVE mg/dL (03/09/23 1:54 AM) Lipase [13-60 unit/L] 37 unit/L (03/09/23 1:53 AM) Leuk Est [NEG] NEGATIVE (03/09/23 1:54 AM) MCH [28-33 pg] 30.2 pg (03/09/23 1:53 AM) MCHC [32-36 g/dL] 34.0 g/dL (03/09/23 1:53 AM) MCV [81-96 fL] 88.8 fL (03/09/23 1:53 AM) Na [136-145 mmol/L] 143 mmol/L (03/09/23 1:53 AM) Nitrite (u) [NEG] NEGATIVE (03/09/23 1:54 AM) Osmolality [275-295 mOsm/kg] 306 mOsm/kg *HI* (03/09/23:53 AM) Plts [150-350 K/uL] 243 K/uL 5 (03/09/23:53 AM) RBC [4.40-5.60 M/uL] 4.11 M/uL *LOW* (03/09/23:53 AM) T Bili [0.0-1.2 mg/dL] 0.3 mg/dL (03/09/23 1:53 AM) Prot [6.4-8.3 g/dL] 6.7 g/dL (03/09/23 1:53 AM) Appear (u) CLEAR (03/09/23:54 AM) Color (u) STRAW (03/09/23:54 AM) Glu (u) [NEG mg/dL] >=500 mg/dL *Abnormal* (03/09/23 1:54 AM) Hgb (u) [NEG] NEGATIVE (03/09/23 1:54 AM) pH (u) [5.0-8.0 unit] 6.0 unit (03/09/23 1:54 AM) Prot (u) [NEG mg/dL] NEGATIVE mg/dL (03/09/23 1:54 AM) Urobili [0.1-1.0 EU/dL] 0.1-1.0 EU/dL (03/09/23 1:54 AM) SG [1.005-1.030] >1.030 *HI* (03/09/23 1:54 AM) Temp(v) NOT PROVIDED C (03/09/23 1:53 AM) HCO3(v) [24-28 mmol/L] 23.7 mmol/L *LOW* (03/09/23 1:53 AM) pCO2(v) [41-51 mmHg] 40.0 mmHg *LOW* (03/09/23 1:53 AM) pH(v) [7.33-7.43 unit] 7.380 unit (03/09/23 1:53 AM) pO2(v) 84.0 mmHg (03/09/23 1:53 AM) WBC [4.0-10.4 K/uL] 5.47 K/uL (03/09/23 1:53 AM) 1Result Comment: CHECKED 2Result Comment: HEMOLYZED SPECIMEN 3Result Comment: ADA recommendation for FASTING Serum/Plasma Glucose: Normal: 70-100 mg/dL Prediabetes: 100-125 mg/dL Diabetes: 126 mg/dL or higher 4Result Comment: HEMOLYZED SPECIMEN 5Result Comment: CHECKED Vital Signs Most recent to oldest [Reference Range]: 1 2 3 Height 188 cm (03/09/23 12:26 AM) Patient Weight 135.7 kg (03/09/23 12:26 AM) Body Mass Index 38.39 kg/m2 (03/09/23 12:26 AM) Temperature [36.5-37.9 DegC] 36.7 DegC (03/09/23 4:53 AM) 36.5 DegC (03/09/23 12:26 AM) Heart Rate 75 bpm (03/09/23 4:53 AM) 83 bpm (03/09/23 2:00 AM) 77 bpm (03/09/23 12:26 AM) Respiratory Rate 17 br/min (03/09/23 4:53 AM) 18 br/min (03/09/23 2:00 AM) 20 br/min (03/09/23 12:26 AM) Blood Pressure 106/86mmHg (03/09/23 4:53 AM) 111/74mmHg (03/09/23 2:00 AM) 124/91mmHg (03/09/23 12:26 AM) Mean Blood Pressure 103 mmHg (03/09/23 12:26 AM) Cuff Pulse Pressure 20 mmHg (03/09/23 4:53 AM) 37 mmHg (03/09/23 2:00 AM) 33 mmHg (03/09/23 12:26 AM) BP Location # 1 Left Arm (03/09/23 12:26 AM) Social History Social History Type Response Smoking Status Unknown if ever smok ed Sex Male Patient Care team information Care Team Personnel Name: Rasheeda Benitez Amy E Position: Pharmacist Member Role: Pharmacy - Lifetime Address: Address: [place] [phone] [place] Name: Rasheeda Eng Keri Position: Pharmacist Member Role: Pharmacy - Lifetime Name: HANK Phipps, Lien Smith Position: RN Member Role: Direct Care Nurse Name: HANK Orona, Danika Position: RN Member Role: Direct Care Nurse Name: MD Fierro Garrett Position: Resident Member Role: Covering (3 days after created) Address: Address: [address] [place] [id number] [place] Name: MD Bridgette, Sy Melvin Position: Physician - ED Chief Member Role: Covering (3 days after created) Address: Address: [address] [place] [address] [place] Care Team Related Persons Name: LIANNE LISBETH Address: home [address] [place], [place] [phone]
--- OUTSIDE RECORDS SUMMARY | 2023-05-27 09:26 | External Medical Summary | Continuity of Care Document ---
Author Name Unknown Organization [facility] Address [address] [place] [address] [id number] Encounter [facility] [id number] Date(s): 02/19/23 - 02/20/[address] [phone] Encounter Diagnosis Acute chest pain(Discharge Diagnosis) - 02/19/23 Chest pain(Discharge Diagnosis) - 02/20/23 Discharge Disposition: Home or Self Care Attending Physician: MD Severino Catherine Admitting Physician: MD Severino Catherine Allergies, Adverse Reactions, Alerts Substance Reaction Severity Status ibuprofen Wheezing Dyspnea Anaphylaxis Active phenytoin Unknown Active ketorolac Rash/Dermatitis Anaphylaxis Active gadopentetate dimeglumine Itching Urticaria Active penicillins Wheezing Active Adhesive bandage Rash Mild Active seafood Active topiramate Urticaria Active iodinated radiocontrast dyes Anaphylaxis Severe Active Novocain Active Ativan low heart rate Active Magnevist Itchiness with no hives or rash Active Depakote Active cloZAPine Unknown Active iodine Anaphylaxis Severe Active NSAIDS (nonsteroidal anti-inflammatory agents) Active Functional Status 02/20/23 History of Fall in Last 3 Months Gonzales N o Presence of Secondary Diagnosis Gonzales Ye s Use of Ambulatory Aid Gonzlaes None/bedrest /nurse assist IV/Heparin Lock Fall Risk Gonzales Yes Gait/Transferring Fall Risk Gonzales Normal /bedrest/immobile Mental Status Fall Risk Gonzales Oriented t o own ability Gonzales Fall Risk Score 35 Gonzales Fall Risk Low Risk 02/20/23 Speech Pattern Clear Immunizations Given and Recorded [...] Date: 09/09/12 Status: Ordered metoprolol tartrate 25 mg, tablet, PO, 02/20/23 9:00:00 EST, 02/20/23 9:00:00 EST, immediate release product, 02/19/23 23:07:00 EST Start Date: 02/20/23 Stop Date: 02/20/23 Status: Completed metoprolol tartrate 25 mg oral tablet Start: 02/20/23 9:54:00 EST, 1 tab, PO, bid, Disp# 60 tab, Refills: 0, Pharmacy: [facility]/pharmacy #[id number] Start Date: 02/20/23 Stop Date: 03/22/23 Status: [...] Diagnosis Diagnosis Type Effective Dates Health Status Cl inical Service Informant Acute chest pain Discharge Diagnosis 02/19/23 Non-Specified Chest pain Discharge Diagnosis 02/20/23 Procedures Procedure Date Related Diagnosis Body Site Status REMOVAL OF GALLBLADDER 1999 Co mpleted APPENDECTOMY 1993 Completed Results Laboratory List Name Date Glucose Meter (GLUCOSE METER) 02/20/23 Hemoglobin A1C 02/20/23 Troponin T 02/20/23 Basic Metabolic Panel (BMP) 02/20/23 Complete Blood Count (CBC w Platelets) 1 04/23/22 Lipid Profile 02/20/23 Troponin T 02/20/23 Glucose Meter (GLUCOSE METER) 02/19/23 Troponin T 02/19/23 Complete Blood Count w Differential (CBC w Platelets and Diff) 02/19/23 Comprehensive Metabolic Panel (CMP) 01/29 05/20 Lipase Level 02/19/23 Magnesium Level 02/19/23 Glucose Meter (GLUCOSE METER) 02/19/23 Most recent to oldest [Reference Range]: 1 2 3 eGFR CKD-EPI [>60 mL/min/1.73 m2] >90 mL/min/1.73 m2 (02/20/23 5:30 AM) >90 mL/min/1.73 m2 (02/19/23 12:11 PM) Estimated Average Glucose 154 mg/dL (02/20/23 5:30 AM) Non-HDL 111 mg/dL (02/20/23 5:30 AM) Estimated CrCl 147.28 mL/min (02/20/23 6:26 AM) 133.26 mL/min (02/19/23 1:12 PM) Troponin T [<0.010 ng/mL] <0.010 ng/mL 1 (02/20/23 7:54 AM) <0.010 ng/mL 2 (02/20/23 2:00 AM) <0.010 ng/mL 3 (02/19/23 6:21 PM) Troponin T Delta NOT CALCULATED (02/20/23 7:54 AM) NOT CALCULATED (02/20/23 2:00 AM) NOT CALCULATED (02/19/23 6:21 PM) MPV [9.0-12.2 fL] 10.2 fL (02/20/23 5:30 AM) 10.6 fL (02/19/23 12:11 PM) Immature Gran% 0.5 % (02/19/23 12:11 PM) Neut% 54.6 % (02/19/23 12:11 PM) Lymph% 30.1 % (02/19/23 12:11 PM) [place]% 8.1 % (02/19/23 12:11 PM) Baso% 0.5 % (02/19/23 12:11 PM) Eos% 6.2 % (02/19/23 12:11 PM) Immat Gran, Abs [0-0.4 K/uL] 0.02 K/uL (02/19/23 12:11 PM) Neut, Abs [2.0-7.7 K/uL] 2.21 K/uL (02/19/23 12:11 PM) Lymph, Abs [1.0-3.4 K/uL] 1.22 K/uL (02/19/23 12:11 PM) [place], Abs [0-1.0 K/uL] 0.33 K/uL (02/19/23 12:11 PM) Baso, Abs [0-0.1 K/uL] 0.02 K/uL (02/19/23 12:11 PM) Eos, Abs [0-0.5 K/uL] 0.25 K/uL (02/19/23 12:11 PM) Type of Diff: AUTO (02/19/23 12:11 PM) RDW [11.5-14.2 %] 13.8 % (02/20/23 5:30 AM) 14.0 % (02/19/23 12:11 PM) Anion Gap [5-14 mmol/L] 10 mmol/L (02/20/23 5:30 AM) 11 mmol/L (02/19/23 12:11 PM) Alb [3.5-5.2 g/dL] 4.1 g/dL (02/19/23 12:11 PM) Alk Phos [40-130 unit/L] 88 unit/L (02/19/23 12:11 PM) ALT [0-41 unit/L] 27 unit/L (02/19/23 12:11 PM) AST [0-40 unit/L] 14 unit/L (02/19/23 12:11 PM) BUN [6-23 mg/dL] 15 mg/dL (02/20/23 5:30 AM) 11 mg/dL (02/19/23 12:11 PM) Ca [8.4-10.2 mg/dL] 9.3 mg/dL (02/20/23 5:30 AM) 9.5 mg/dL (02/19/23 12:11 PM) Chol/HDL 4 (02/20/23 5:30 AM) Chol [<200 mg/dL] 149 mg/dL (02/20/23 5:30 AM) Cl- [98-107 mmol/L] 107 mmol/L (02/20/23 5:30 AM) 108 mmol/L *HI* (02/19/23 12:11 PM) HCO3 [22-29 mmol/L] 25 mmol/L (02/20/23 5:30 AM) 25 mmol/L (02/19/23 12:11 PM) Cret [0.70-1.30 mg/dL] 0.95 mg/dL (02/20/23 5:30 AM) 1.05 mg/dL (02/19/23 12:11 PM) HbA1c [<5.7 %] 7.0 % 4 *HI* (02/20/23 5:30 AM) Glu [74-109 mg/dL] 149 mg/dL 5 *HI* (02/20/23 5:30 AM) 203 mg/dL 6 *HI* (02/19/23 12:11 PM) Gluc Meter [74-109 mg/dL] 132 mg/dL *HI* (02/20/23 8:40 AM) 190 mg/dL *HI* (02/19/23 10:27 PM) 181 mg/dL *HI* (02/19/23 12:05 PM) Hct [39-48 %] 35.7 % *LOW* (02/20/23 5:30 AM) 37.1 % *LOW* (02/19/23 12:11 PM) HDL [>40 mg/dL] 38 mg/dL *LOW* (02/20/23 5:30 AM) Hgb [13.0-17.0 g/dL] 12.2 g/dL *LOW* (02/20/23 5:30 AM) 12.7 g/dL *LOW* (02/19/23 12:11 PM) K [3.5-5.1 mmol/L] 4.3 mmol/L (02/20/23 5:30 AM) 4.2 mmol/L (02/19/23 12:11 PM) LDL Chol, Calculated [50-130 mg/dL] 84 mg/dL (02/20/23 5:30 AM) Lipase [13-60 unit/L] 28 unit/L (02/19/23 12:11 PM) MCH [28-33 pg] 29.5 pg (02/20/23 5:30 AM) 29.6 pg (02/19/23 12:11 PM) MCHC [32-36 g/dL] 34.2 g/dL (02/20/23 5:30 AM) 34.2 g/dL (02/19/23 12:11 PM) MCV [81-96 fL] 86.2 fL (02/20/23 5:30 AM) 86.5 fL (02/19/23 12:11 PM) Mg [1.6-2.6 mg/dL] 2.0 mg/dL (02/19/23 12:11 PM) Na [136-145 mmol/L] 142 mmol/L (02/20/23 5:30 AM) 144 mmol/L (02/19/23 12:11 PM) Plts [150-350 K/uL] 163 K/uL (02/20/23 5:30 AM) 175 K/uL (02/19/23 12:11 PM) RBC [4.40-5.60 M/uL] 4.14 M/uL *LOW* (02/20/23 5:30 AM) 4.29 M/uL *LOW* (02/19/23 12:11 PM) T Bili [0.0-1.2 mg/dL] 0.6 mg/dL (02/19/23 12:11 PM) Prot [6.4-8.3 g/dL] 6.6 g/dL (02/19/23 12:11 PM) TG [<150 mg/dL] 133 mg/dL (02/20/23 5:30 AM) WBC [4.0-10.4 K/uL] 6.13 K/uL (02/20/23 5:30 AM) 4.05 K/uL (02/19/23 12:11 PM) 1Result Comment: cTnT >= 0.030 ng/ml: myocardial necrosis present. This may be due to acute myocardial ischemia (AMI) or other myocardial injury. cTnT < 0.010 ng/ml: 99th percentile upper reference limit for ostensibly healthy adult referencepopulation (male and female). 2Result Comment: cTnT >= 0.030 ng/ml: myocardial necrosis present. This may be due to acute myocardial ischemia (AMI) or other myocardial injury. cTnT < 0.010 ng/ml: 99th percentile upper reference limit for ostensibly healthy adult referencepopulation (male and female). 3Result Comment: cTnT >= 0.030 ng/ml: myocardial necrosis present. This may be due to acute myocardial ischemia (AMI) or other myocardial injury. cTnT < 0.010 ng/ml: 99th percentile upper reference limit for ostensibly healthy adult referencepopulation (male and female). 4Result Comment: ADA Recommended [place] Reference Range: Normal: <5.7% Prediabetes: 5.7-6.4% Diabetes: >6.4% 5Result Comment: ADA recommendation for FASTING Serum/Plasma Glucose: Normal: 70-100 mg/dL Prediabetes: 100-125 mg/dL Diabetes: 126 mg/dL or higher 6Result Comment: ADA recommendation for FASTING Serum/Plasma Glucose: Normal: 70-100 mg/dL Prediabetes: 100-125 mg/dL Diabetes: 126 mg/dL or higher Radiology Reports * Exam Date Time Procedure Performing Provider Status 02/19/23 6:[address] Angio Abdomen and Pelvis Jennifer Fritz; Modified Notes: (CT Angio Abdomen and Pelvis) Reason For Exam: Known abdominal aortic aneurysm. Presenting with epigastric pain, vague discomfort and pain between the scapulae CT Angio Abdomen and Pelvis EXAMINATION: CT Angio Chest, CT Angio Abdomen and Pelvis CLINICAL HISTORY: Entire AortaKnown abdominal aortic aneurysm. Presenting with epigastric pain, vague discomfort and pain between the scapulae COMPARISON: CT chest 11/25/2022 CT abdomen and pelvis 09/26/2022 TECHNIQUE: CT scan of the chest, abdomen, and pelvis prior to and after intravenous contrast administration. Data reconstructed as axial, sagittal, and coronal slices. Volume rendered and maximum intensity projection images were obtained and interpreted at a separate 3-D workstation. CONTRAST: Contrast Type (IV): Omnipaque 350 Contrast Volume (IV) in ml: 100.00 DOSE: Total Reported Dose Length Product (DLP) = 1689.03 mGy.cm FINDINGS: CTA: Thoracic aorta: Left-sided four-vessel aortic arch with the left vertebral artery arising from the arch. The thoracic aorta is patent without high-grade vessel occlusion or aneurysmal dilatation. Aortic measurements at the following levels: Annulus: 30.2 mm Sinuses of Valsalva: 38.4 mm Sinotubular junction: 33.5 mm Maximum ascending diameter: 38.0 mm Maximum descending diameter: 24.6 mm Abdominal aorta: Normal course and caliber of the aorta. Celiac axis: Conventional celiac anatomy. Patent. SMA: Patent. Renal Arteries: Two right-sided renal arteries, patent. Single left renal artery, patent. RENETTA: Patent. Common iliac arteries: Patent. External iliac arteries: Patent. Internal iliac arteries: Patent. Common femoral arteries: Patent. Superficial and deep femoral arteries: Patent. CHEST: Pleura and lungs: No focal parenchymal opacity. No pleural effusion or pneumothorax. Central airways: No endobronchial lesions. Lymph nodes: No lymphadenopathy by size criteria. Thyroid and Mediastinum: Two tiny left hypodense thyroid nodules measuring 3 mm. Heart and Great vessels: Normal heart size. No pericardial effusion. No large central pulmonary embolism. ABDOMEN: Liver, Gallbladder \\T\\ bile ducts: No suspicious hepatic lesion. No bile duct dilation. Cholecystectomy clips. Pancreas: Normal Spleen: Normal Adrenals: Normal Kidneys, collecting system and ureters: Symmetric renal enhancement. No hydronephrosis. Retroperitoneum, lymph nodes, and vessels: No retroperitoneal lymphadenopathy. Vessels per above. Bowel \\T\\ Mesentery: No bowel obstruction. No mesenteric stranding or lymphadenopathy. Normal appendix. PELVIS: Bladder: Unremarkable for degree of distention. Reproductive organs: Unremarkable Extraperitoneal, lymph nodes, vessels: No lymphadenopathy. Osseous and body wall: Left chest wall pacemaker with leads in the right atrium and right ventricle. Multiple foci of soft tissue stranding in the anterior lower abdominal wall likely from injection granulomas. Multilevel degenerative changes of the spine. IMPRESSION: 1. No findings of acute aortic syndrome. No evidence of thoracic or abdominopelvic aneurysm. 2. No acute thoracic, abdominal or pelvic abnormality. [place] Act 112: This study does not meet the requirements of [place] Act 112. Dr. Rolly Nguyễn is the dictating resident. Finalized reports status indicates that the attending has reviewed the images and report, and agrees with the interpretation. Preliminary reportstatus should be regarded as NOT interpreted by the attending radiologist. Workstation ID: [id number] Final Dictated by:Lucina Rogers MD, Yilmarie Dictated DT/TM:02/19/2023 10:10 Resident:Lucina Rogers MD, Rolly Signed by:MD Saravia Sallyann Signed (Electronic Signature):02/19/2023 10:09 * Exam Date Time Procedure Performing Provider Status 02/19/23 6:[address] Angio Chest Jennifer Fritz; Modified Notes: (CT Angio Chest) Reason For Exam: Known abdominal aortic aneurysm. Presenting with epigastric pain,vague discomfort and pain between the scapulae CT Angio Chest EXAMINATION: CT Angio Chest, CT Angio Abdomen and Pelvis CLINICAL HISTORY: Entire AortaKnown abdominal aortic aneurysm. Presenting with epigastric pain, vague discomfort and pain between the scapulae COMPARISON: CT chest 11/25/2022 CT abdomen and pelvis 09/26/2022 TECHNIQUE: CT scan of the chest, abdomen, and pelvis prior to and after intravenous contrast administration. Data reconstructed as axial, sagittal, and coronal slices. Volume rendered and maximum intensity projection images were obtained and interpreted at a separate 3-D workstation. CONTRAST: Contrast Type (IV): Omnipaque 350 Contrast Volume (IV) in ml: 100.00 DOSE: Total Reported Dose Length Product (DLP) = 1689.03 mGy.cm FINDINGS: CTA: Thoracic aorta: Left-sided four-vessel aortic arch with the left vertebral artery arising from the arch. The thoracic aorta is patent without high-grade vessel occlusion or aneurysmal dilatation. Aortic measurements at the following levels: Annulus: 30.2 mm Sinuses of Valsalva: 38.4 mm Sinotubular junction: 33.5 mm Maximum ascending diameter: 38.0 mm Maximum descending diameter: 24.6 mm Abdominal aorta: Normal course and caliber of the aorta. Celiac axis: Conventional celiac anatomy. Patent. SMA: Patent. Renal Arteries: Two right-sided renal arteries, patent. Single left renal artery, patent. RENETTA: Patent. Common iliac arteries: Patent. External iliac arteries: Patent. Internal iliac arteries: Patent. Common femoral arteries: Patent. Superficial and deep femoral arteries: Patent. CHEST: Pleura and lungs: No focal parenchymal opacity. No pleural effusion or pneumothorax. Central airways: No endobronchial lesions. Lymph nodes: No lymphadenopathy by size criteria. Thyroid and Mediastinum: Two tiny left hypodense thyroid nodules measuring 3 mm. Heart and Great vessels: Normal heart size. No pericardial effusion. No large central pulmonary embolism. ABDOMEN: Liver, Gallbladder \\T\\ bile ducts: No suspicious hepatic lesion. No bile duct dilation. Cholecystectomy clips. Pancreas: Normal Spleen: Normal Adrenals: Normal Kidneys, collecting system and ureters: Symmetric renal enhancement. No hydronephrosis. Retroperitoneum, lymph nodes, and vessels: No retroperitoneal lymphadenopathy. Vessels per above. Bowel \\T\\ Mesentery: No bowel obstruction. No mesenteric stranding or lymphadenopathy. Normal appendix. PELVIS: Bladder: Unremarkable for degree of distention. Reproductive organs: Unremarkable Extraperitoneal, lymph nodes, vessels: No lymphadenopathy. Osseous and body wall: Left chest wall pacemaker with leads in the right atrium and right ventricle. Multiple foci of soft tissue stranding in the anterior lower abdominal wall likely from injection granulomas. Multilevel degenerative changes of the spine. IMPRESSION: 1. No findings of acute aortic syndrome. No evidence of thoracic or abdominopelvic aneurysm. 2. No acute thoracic, abdominal or pelvic abnormality. [place] Act 112: This study does not meet the requirements of [place] Act 112. Dr. Rolly Nguyễn is the dictating resident. Finalized reports status indicates that the attending has reviewed the images and report, and agrees with the interpretation. Preliminary reportstatus should be regarded as NOT interpreted by the attending radiologist. Workstation ID: [id number] Final Dictated by:Lucina Rogers MD, Yilmarie Dictated DT/TM:02/19/2023 10:10 Resident:Lucina Rogers MD, Yilmarie Signed by:MD Saravia Sallyann Signed (Electronic Signature):02/19/2023 10:09 * Exam Date Time Procedure Performing Provider Status 02/19/23 11:41 AM XR Chest 2 Views Valerie Carrasco; Final Notes: (XR Chest 2 Views) Reason For Exam: Chest Pain XR Chest 2 Views EXAMINATION: XR Chest 2 Views CLINICAL HISTORY: Chest Pain COMPARISON: CT thorax 11/17/2022 FINDINGS: PA and lateral radiographs of the chest. Pacemaker leads in the right atrium and right ventricle. Normal cardiomediastinal silhouette. Hypoinflation. No focal hazy opacity. No pleural effusion or pneumothorax. Degenerative changes of the thoracic spine. No acute osseous body. Cholecystectomy surgical clips. IMPRESSION: Hypoinflation without an acute abnormality. Dr. Rito Lopez is the dictating resident. Finalized reports status indicates that the attending has reviewed the images and report, and agrees with the interpretation. Preliminary report status should be regarded as NOT interpreted by the attending radiologist. Workstation ID: [id number] Final Dictated by:MD Lopez Aroh Jamanadas Dictated DT/TM:02/19/2023 12:01 Resident:MD John, Rito Boykin Signed by:DO Morris Chase Nelson Signed (Electronic Signature):02/19/2023 12:00 Vital Signs Most recent to oldest [Reference Range]: 1 2 3 Height 187 cm (02/19/23 10:44 AM) Patient Weight 135 kg (02/19/23 10:44 AM) Body Mass Index 38.61 kg/m2 (02/19/23 10:44 AM) Temperature [36.5-37.9 DegC] 36.8 DegC (02/20/23 6:00 AM) 36.9 DegC (02/19/23 10:44 AM) Heart Rate 69 bpm (02/20/23 8:48 AM) 64 bpm (02/20/23 8:00 AM) 60 bpm (02/20/23 7:00 AM) Respiratory Rate 16 br/min (02/20/23 8:00 AM) 9 br/min (02/20/23 7:00 AM) 10 br/min (02/20/23 6:00 AM) Blood Pressure 107/67mmHg (02/20/23 8:48 AM) 143/72mmHg (02/20/23 8:00 AM) 100/62mmHg (02/20/23 7:00 AM) Mean Blood Pressure 81 mmHg (02/20/23 8:48 AM) 95 mmHg (02/20/23 8:00 AM) 72 mmHg (02/20/23 7:00 AM) Cuff Pulse Pressure 71 mmHg (02/20/23 8:00 AM) 38 mmHg (02/20/23 7:00 AM) 38 mmHg (02/20/23 6:00 AM) BP Location # 1 Left Arm (02/19/23 3:08 PM) Social History Social History Type Response Smoking Status Never smoked cigaret jessica Sex Male Cardiology * Contributor_system, MUSE01: VERIFY, PERFORM Event Display: EKG Authored Date: Please click on link to see image. * Contributor_system, [email or web address]: VERIFY, PERFORM Event Display: EKG Authored Date: [id number] Please click on link to see image. * Contributor_system, MUSE01: VERIFY, PERFORM Event Display: EKG Authored Date: [id number] Please click on link to see image. History and physical note * TAMMY Middleton Steven: PERFORM Event Display: H&P Authored Date: [id number] Name:DAVID BURRIS Jr. Patient Number:[id number] :1980 Date of Service:02/19/2023 Chief Complaint being evaluated for possible liver cancer. c/o left scapular and epigastric pain, and nausea History of Present Illness Patient is a 43-year-old male with eosinophilic esophagitis, factor V Leiden,previous symptomaticbradycardia afteran electrocution event status post pacemaker placement,and type 2 diabetes whois presenting to the Emergency Department due to epigastric pain, nausea, and pain betweenthe scapula. Patient states that hehas some mild nausea and nondescript painin the epigastrium andbetween his scapula without anyrecent injuriesor othernotable factors. Patient states that hehas had some travel recentlybut otherwise has nothad any other notablechanges in lifestyle. He denies any recent medication changes. He denies any associated fevers, chills, vomiting, shortness of breath,urination changes, or bowel movement changes. [1] ED Course: Workup in the ED was benign. Normal chemistries, no leukocytosis, no significant anemia. Troponinx [address] angios of the chest/abdomen/pelvis were benign without acute findings. Cardiology was consulted who recommended initiating metoprolol tartrate 25 mg twice daily and admitted to ED observation unit so electrophysiology attending can see the patient tomorrow. Review of Systems 10 point review of systems negative unless documented in HPI Physical Exam Vitals & Measurements T:36.9C HR:60(Monitored) RR:18 BP:152/66 SpO2:95% Oxygen Therapy:Room air WT:135kg WT:135.000kg(Dosing) BMI:38.61 kg/m2 General:Well nourished, appears stated age, no acute distress. HEENT:Normocephalic, atraumatic.Moist mucus membranes. Conjunctiva pink. Neck:Supple Cardiac:Regular rate and rhythm. S1 and S2 without S3/S4. No murmurs/rubs/gallops appreciated.Radial pulses 2+ and equal Lungs:Clear to auscultation bilaterally without crackles, wheezes, rales, or rhonchi. Good respiratory effort. No accessory muscle use. Abdomen:Soft, nontender, nondistended. Extremities:No edema bilaterally. Neuro:Alert and oriented x 3. Answering questions appropriately. No focal deficits. Psych:Pleasant and cooperative. Affect appropriate. Skin:Warm, well perfused. No jaundice or rashes. Diagnostic Results (02/19/2023 18:[address] Angio Abdomen and Pelvis) CT Angio Abdomen and Pelvis EXAMINATION: CT Angio Chest, CT Angio Abdomen and Pelvis CLINICAL HISTORY: Entire AortaKnown abdominal aortic aneurysm. Presenting with epigastric pain, vague discomfort and pain between the scapulae COMPARISON: CT chest 11/25/2022 CT abdomen and pelvis 09/26/2022 TECHNIQUE: CT scan of the chest, abdomen, and pelvis prior to and after intravenous contrast administration. Data reconstructed as axial, sagittal, and coronal slices. Volume rendered and maximum intensity projection images were obtained and interpreted at a separate 3-D workstation. CONTRAST: Contrast Type (IV): Omnipaque 350 Contrast Volume (IV) in ml: 100.00 DOSE: Total Reported Dose Length Product (DLP) = 1689.03 mGy.cm FINDINGS: CTA: Thoracic aorta: Left-sided four-vessel aortic arch with the left vertebral artery arising from the arch. The thoracic aorta is patent without high-grade vessel occlusion or aneurysmal dilatation. Aortic measurements at the following levels: Annulus: 30.2 mm Sinuses of Valsalva: 38.4 mm Sinotubular junction: 33.5 mm Maximum ascending diameter: 38.0 mm Maximum descending diameter: 24.6 mm Abdominal aorta: Normal course and caliber of the aorta. Celiac axis: Conventional celiac anatomy. Patent. SMA: Patent. Renal Arteries: Two right-sided renal arteries, patent. Single left renal artery, patent. RENETTA: Patent. Common iliac arteries: Patent. External iliac arteries: Patent. Internal iliac arteries: Patent. Common femoral arteries: Patent. Superficial and deep femoral arteries: Patent. CHEST: Pleura and lungs: No focal parenchymal opacity. No pleural effusion or pneumothorax. Central airways: No endobronchial lesions. Lymph nodes: No lymphadenopathy by size criteria. Thyroid and Mediastinum: Two tiny left hypodense thyroid nodules measuring 3 mm. Heart and Great vessels: Normal heart size. No pericardial effusion. No large central pulmonary embolism. ABDOMEN: Liver, Gallbladder \\T\\ bile ducts: No suspicious hepatic lesion. No bile duct dilation. Cholecystectomy clips. Pancreas: Normal Spleen: Normal Adrenals: Normal Kidneys, collecting system and ureters: Symmetric renal enhancement. No hydronephrosis. Retroperitoneum, lymph nodes, and vessels: No retroperitoneal lymphadenopathy. Vessels per above. Bowel \\T\\ Mesentery: No bowel obstruction. No mesenteric stranding or lymphadenopathy. Normal appendix. PELVIS: Bladder: Unremarkable for degree of distention. Reproductive organs: Unremarkable Extraperitoneal, lymph nodes, vessels: No lymphadenopathy. Osseous and body wall: Left chest wall pacemaker with leads in the right atrium and right ventricle. Multiple foci of soft tissue stranding in the anterior lower abdominal wall likely from injection granulomas. Multilevel degenerative changes of the spine. IMPRESSION: 1. No findings of acute aortic syndrome. No evidence of thoracic or abdominopelvic aneurysm. 2. No acute thoracic, abdominal or pelvic abnormality. [2] Assessment/Plan Acute chest pain -Cardiology consulted -Initiate metoprolol tartrate 25 mg twice daily -Electrophysiology attending to see the patient in the morning, likely discharge after -Continuous cardiac monitoring and pulse oximetry -Troponin every 6 hours -Continue home medications Disposition: Patient is admitted ED observation unitfor cardiology consultation/electrophysiology. Electrophysiology attending to see the patient in the morningfor finaldispo. In the meantime, cardiology recommended 25 mg of metoprolol tartrate twice daily. Problem List/Past Medical History Ongoing Eosinophilic esophagitis Factor V Leiden mutation Fibromyalgia Gastropathy GERD (gastroesophageal reflux disease) Hypercholesterolemia Mesenteric panniculitis Paroxysmal supraventricular tachycardia Pericarditis Type 2 diabetes mellitus Procedure/Surgical History REMOVAL OF GALLBLADDER (1999)APPENDECTOMY (1993) Medications Inpatient acetaminophen(Tylenol), 1000 mg= 2 tab, PO, q8h amitriptyline, 25 mg= 1 tab, PO, Daily atorvastatin, 40 mg= 1 tab, PO, Daily dapagliflozin, 10 mg= 1 tab, PO, Daily insulin lispro(HumaLOG Sliding Scale Low), SSI, subQ, ac and hs magnesium oxide, 400 mg= 1 tab, PO, Daily metFORMIN, 1000 mg= 2 tab, PO, bid metoprolol(metoprolol tartrate), 25 mg= 1 tab, PO, bid morphine, 2 mg= 1 mL, IV Push, q5min, PRN nitroglycerin, 0.4 mg= 1 tab, SL, q5min, PRN pantoprazole(Protonix), 40 mg= 1 tab, PO, bid pregabalin(Lyrica), 200 mg= 2 cap, PO, bid rivaroxaban, 20 mg= 1 tab, PO, Daily thiamine(Vitamin B1), 50 mg= 1 tab, PO, Daily Home acetaminophen(acetaminophen 500 mg oral tablet), 500 mg= 1 tab, PO, q6h, PRN amitriptyline(amitriptyline 25 mg oral tablet) atorvastatin, 40 mg, PO, Daily diclofenac topical(Voltaren 1% topical gel), 1 appl, topical, qid, PRN empagliflozin(empagliflozin 25 mg oral tablet), 25 mg, PO, qAM fentaNYL(fentaNYL 25 mcg/hr transdermal film, extended release), 1 patch, topical, q72h fluticasone nasal(Flonase 50 mcg/inh nasal spray), 1 spray, each nostril, Daily insulin aspart(NovoLOG FlexPen 100 units/mL injectable solution), See Instructions insulin glargine(Lantus Solostar Pen 100 units/mL subcutaneous solution), 36 unit, subQ, qhs lidocaine topical(lidocaine 5% patch), 1 patch, topical, Daily, PRN magnesium oxide(magnesium oxide 400 mg (241.3 mg elemental magnesium) oral tablet), 400 mg= 1 tab, PO, Daily metformin(metformin 500 mg oral tablet), 1000 mg= 2 tab, PO, bid metoprolol(Lopressor 50 mg oral tablet), 25 mg= 0.5 tab, PO, bid multivitamin, 1 tab, PO, Daily pantoprazole(Protonix), 40 mg, PO, bid pregabalin(Lyrica 200 mg oral capsule), 200 mg= 1 cap, PO, bid rivaroxaban(rivaroxaban 20 mg oral tablet), 20 mg= 1 tab, PO, Daily thiamine(Vitamin B1 50 mg oral tablet), 50 mg= 1 tab, PO, Daily trolamine salicylate topical(Aspercreme 10% topical cream), 1 appl, topical, qid, PRN Allergies iodinated radiocontrast dyes(Severe)Anaphylaxis iodine(Severe)Anaphylaxis Adhesive bandage (Mild)Rash Ativanlow heart rate Depakote MagnevistItchiness with no hives or rash NSAIDS (nonsteroidal anti-inflammatory agents) Novocain cloZAPineUnknown gadopentetate dimeglumineItching, Urticaria ibuprofenWheezing, Dyspnea, Anaphylaxis ketorolacRash/Dermatitis, Anaphylaxis penicillinsWheezing phenytoinUnknown seafood topiramateUrticaria Social History Smoking Status Never smoked cigarettes Immunizations Vaccine Date Status tetanus/diphtheria/pertuss, acel (Tdap) 08/22/2022 Given [1]ED Physician Note; MD Ranulfo, Quinten Colon 02/19/2023 12:02 EST [2]CT Angio Abdomen and Pelvis; MD Manjit, Jazmyne 02/19/2023 18:21 EST Electronic Signature on File Electronically Reviewed/Signed by: Watson Middleton PA-C Author Signature Dt/Tm:02/19/2023 11:16 PM Department of Emergency Medicine Electronically Reviewed/Signed by: Alix Severino MD Cosigner Signature Dt/Tm: 02/19/2023 11:30 PM Department of Emergency Medicine SM EP Inpt Consult * MD Veliz Ankit: MODIFY MD Veliz Ankit: MODIFY, PERFORM, MODIFY DO Payan Mohammad: MODIFY, MODIFY DO Payan Mohammad: MODIFY Event Display: EP Inpt Consult Authored Date: [id number] ELECTROPHYSIOLOGY INPATIENT CONSULTATION REPORT Name: DAVID BURRIS Jr. Patient Number: [id number] : 1980 Date of Service: 02/19/2023 REQUESTING SERVICE: ED REASON FOR CONSULTATION: Chest pressure. ASSESSMENT: David Burris is a 43-year-old male with Factor V Leiden on rivaroxaban, SVT, bradycardia s/p pacemaker, type 2 diabetes mellitus, dyslipidemia who presented with to the ER for chest discomfort andepisodes of feeling palpitations and feeling flushed. Patient's telemetry is consistent with short runs of atrial tachycardia. Too short to catch on EKG. Device interrogation shows 4 episodes of SVT meeting criteria for detection over the last 3 days with the longest being a minute and 48 seconds. Patient has no evidence of ACS or anginal pain. What he is presenting with are paroxysms of atrial tachycardia. RECOMMENDATIONS: 1 ) Please start Metoprolol tartrate 25 mg BID. We will observe the patient overnight. (Review of telemetry in the morning shows paroxysms of SVT are much lower in frequency). 2 ) We discussed with the patient that his chest pain at rest is very atypical. It does not correlate with episodes of atrial tachycardia either. His CT scans do not show much coronary calcium. Our suspicion for his chest pain being cardiac in nature is very low and does not warrant inpatient stay for stress testing. Recommend continued evaluation for noncardiac chest pain. 3 ) Patient's device interrogation shows 50% atrial pacing when set to a rate of 60. He has no ventricular pacing. We suspect his pacing needs will be even lower if his lower rate were to be set at less than 60. It wouldn't be unusual for a person his age to have a resting sinus rate lower than 60.We discussed with him that he can discuss this with his outpatient providers and this can help assess if he needs continued pacemaker support. EP will sign off at this time. History of Present Illness: 42-year-old male with Factor V Leiden on rivaroxaban, paroxysmal SVT, bradycardia s/p pacemaker, type 2 diabetes mellitus, dyslipidemia, fibromyalgia, history of pericarditis who presented to [facility] on 02/20 due to chest discomfort that reportedly was sharp in nature. Patient received a CT angio chestand abd/pelv which were negative. Troponin was negative x2. There was concern for "dynamic EKG changes" specifically T wave inversion in lead 3. All EKGs except 1 reflect negative T wave in lead 3 with a negative QRS complex. This is a concordant T wave and not inverted. This is unchanged compared to prior EKGs. Additionally, the one EKG that was concerning for dynamic changes, likely has incorrect lead placement as all the limb leads are low voltage and different in morphology than all other EKGs. What the patient did have is symptomatic bursts of tachycardia. Review of telemetry indicates likely atrial tachyardia as there is clear P wave activity. He has a history of this. His Metoprolol was stopped after his pacemaker was placed. Patient's telemetry is consistent with short runs of atrial tachycardia. Too short to catch on EKG.Device interrogation shows 4 episodes of SVT meeting criteria for detection over the last 3 days with the longest being a minute and 48 seconds. Patient has no evidence of ACS or anginal pain. What he is presenting with are paroxysms of atrial tachycardia that are symptomatic. I offered him initiation of Metoprolol and possible discharge but he preferred to remain in the hospital for observation. Review Of Systems: 14 point ROS reviewed and negative unless otherwise stated in HPI. Past Medical History: Factor V Leiden on rivaroxaban, paroxysmal SVT, bradycardia s/p pacemaker, type 2 diabetes mellitus, dyslipidemia, fibromyalgia, history of pericarditis SOCIAL HISTORY: _ No tobacco, alcohol or drug use. FAMILY HISTORY: _ Father had coronary artery disease. Allergies and Sensitivities: topiramate(Urticaria) cloZAPine(Unknown) gadopentetate dimeglumine(Urticaria) gadopentetate dimeglumine(Itching) penicillins(Wheezing) phenytoin(Unknown) iodinated radiocontrast dyes(Anaphylaxis) ketorolac(Anaphylaxis) ketorolac(Rash/Dermatitis) Adhesive bandage(Rash) iodine(Anaphylaxis) ibuprofen(Anaphylaxis) ibuprofen(Dyspnea) ibuprofen(Wheezing) Ativan(low heart rate) seafood Magnevist(Itchiness with no hives or rash) Depakote Novocain NSAIDS (nonsteroidal anti-inflammatory agents) Active Inpt Meds: acetaminophen (Tylenol) 1,000 mg PO q8h amitriptyline 25 mg PO Daily atorvastatin 40 mg PO Daily dapagliflozin 10 mg PO Daily insulin lispro (HumaLOG Sliding Scale Low) subQ ac and hs magnesium oxide 400 mg PO Daily metFORMIN 1,000 mg PO bid metoprolol (metoprolol tartrate) 25 mg PO bid pantoprazole (Protonix) 40 mg PO bid pregabalin (Lyrica) 200 mg PO bid rivaroxaban 20 mg PO Daily thiamine (Vitamin B1) 50 mg PO Daily Active PRN Meds: morphine 2 mg IV Push q5min nitroglycerin 0.4 mg SL q5min One Time Meds: (Completed) Al hydroxide/Mg hydroxide/simethicone (Mylanta) 30 mL w/ PO ONCE(Completed) aspirin 324 mg w/ PO ONCE(Completed) famotidine (Pepcid) 20 mg w/ IV ONCE(Completed) iohexol (Omnipaque 350) 100 mL w/ contrast-IV ONCE(Completed) ketorolac (Toradol) 15 mg w/ IV Push ONCE(Completed) morphine 4 mg w/ IV Push ONCE(Completed) morphine 4 mg w/ IV Push ONCE Active IV Meds: None Vitals: Last Updated 02/19/23 23:33 Weights: Last Updated 02/19/23 10:44 Date Temp Pulse BP RR SpO2 FIO2 Date Wt(kg) Wt(lb) 02/19 23:33 74 92/71 02/19 10:44 135.0 297 02/19 22:00 60 152/66 18 95 02/19 10:44 135.0 297 02/19 21:00 66 122/74 16 95 02/19 20:02 65 118/66 12 95 02/19 18:41 60 103/63 10 95 24 Hr Tmax: 36.9 at 02/19 10:44 Initial Wt: 02/19 135.0 kg 297 lb Physical Exam: General:NAD, alert and cooperative. ENT:MMM. Oral cavity non-erythematous. No JVD. CV:Regular, + S1 S2 with no murmur, gallops, rubs. Pulses 2+ and symmetrical in upper and lower extremities. Lungs:CTA B/L with no wheezes, rales, rhonchi. No increased WOB. On RA. Abdomen:Soft, NTND appearing. Extremities:Well developed muscle mass, tone. Warm, well perfused. No edema in upper or lower extremities. Neuro:No facial asymmetry at rest. Spontaneously moving all extremities. AOx3. Skin:Warm, dry, intact, with no noted rash. Most Recent 24 Hour CBC/BMP Results CBC: on 02/19/2023 12:11 CMP: on 02/19/2023 12:11 12.7 144 108 11 4.0 175 203 37.1 4.2 25 1.05 Abs Neut = 2.2 Ca = 9.5 Most Recent 24 Hour Labs: 02/19/23 2227 Gluc Meter 190 H 02/19/23 1821 Troponin T <0.010 Troponin T Delta See Flowsheet 02/19/23 1312 Estimated CrCl 133.26 02/19/23 1211 MCH 29.6 MCHC 34.2 MCV 86.5 RBC 4.29 L MPV 10.6 Immature Gran% 0.5 Neut% 54.6 Lymph% 30.1 [place]% 8.1 Baso% 0.5 Eos% 6.2 Immat Gran, Abs 0.02 Lymph, Abs 1.22 [place], Abs 0.33 Baso, Abs 0.02 Eos, Abs 0.25 Type of Diff: See Flowsheet RDW 14.0 Anion Gap 11 Mg 2.0 eGFR CKD-EPI >90 Alk Phos 88 ALT 27 AST 14 Lipase 28 T Bili 0.6 Alb 4.1 Prot 6.6 Studies: Pending or Completed in the Last [address] Angio Abdomen and Pelvis Completed CT Angio Chest Completed XR Chest 2 Views Completed EKG (ED) Completed EKG (ED) Completed EKG (ED) [place] [address] Echo [place] [address]63 Vascular Access POC Completed I have examined the patient and agree with the note/plan. Scooter Veliz MD, MS Cardiac Electrophysiology Electronic Signature on File Electronically Reviewed/Signed by: Trey Payan DO Author Signature Dt/Tm:02/20/2023 12:12 AM Resident [facility] Electronically Reviewed/Signed by: Trey Payan DO Cosigner Signature Dt/Tm: 02/20/2023 08:42 AM Resident [facility] Electronically Reviewed/Signed by: Scooter Veliz MD Cosigner Signature Dt/Tm: 02/20/2023 08:56 AM [facility] MA .D/C Summary * TAMMY Huertas Samantha: PERFORM, MODIFY, MODIFY, MODIFY, MODIFY DO Delgado Garrett: MODIFY Event Display: .D/C Summary Authored Date: [id number] [facility] For medical concerns, call: . Address: [address] [place] [address] ANITA WELLER [id number] (MOBILE) :1980 . Date of Admission:02/19/2023 Date of Discharge:02/20/2023 Physician:MD Mere Alix Service:Emergency Medicine Discharge Disposition:Home or Self Care Principal Diagnosis: Chest pain Other Diagnoses: Acute chest pain Major Tests and Procedures: (02/19/2023 11:41 EST XR Chest 2 Views) FINDINGS: PA and lateral radiographs of the chest. Pacemaker leads in the right atrium and right ventricle. Normal cardiomediastinal silhouette. Hypoinflation. No focal hazy opacity. No pleural effusion or pneumothorax. Degenerative changes of the thoracic spine. No acute osseous body. Cholecystectomy surgical clips. IMPRESSION: Hypoinflation without an acute abnormality. (02/19/2023 18:[address] Angio Abdomen and Pelvis) FINDINGS: CTA: Thoracic aorta: Left-sided four-vessel aortic arch with the left vertebral artery arising from the arch. The thoracic aorta is patent without high-grade vessel occlusion or aneurysmal dilatation. Aortic measurements at the following levels: Annulus: 30.2 mm Sinuses of Valsalva: 38.4 mm Sinotubular junction: 33.5 mm Maximum ascending diameter: 38.0 mm Maximum descending diameter: 24.6 mm Abdominal aorta: Normal course and caliber of the aorta. Celiac axis: Conventional celiac anatomy. Patent. SMA: Patent. Renal Arteries: Two right-sided renal arteries, patent. Single left renal artery, patent. RENETTA: Patent. Common iliac arteries: Patent. External iliac arteries: Patent. Internal iliac arteries: Patent. Common femoral arteries: Patent. Superficial and deep femoral arteries: Patent. CHEST: Pleura and lungs: No focal parenchymal opacity. No pleural effusion or pneumothorax. Central airways: No endobronchial lesions. Lymph nodes: No lymphadenopathy by size criteria. Thyroid and Mediastinum: Two tiny left hypodense thyroid nodules measuring 3 mm. Heart and Great vessels: Normal heart size. No pericardial effusion. No large central pulmonary embolism. ABDOMEN: Liver, Gallbladder \\T\\ bile ducts: No suspicious hepatic lesion. No bile duct dilation. Cholecystectomy clips. Pancreas: Normal Spleen: Normal Adrenals: Normal Kidneys, collecting system and ureters: Symmetric renal enhancement. No hydronephrosis. Retroperitoneum, lymph nodes, and vessels: No retroperitoneal lymphadenopathy. Vessels per above. Bowel \\T\\ Mesentery: No bowel obstruction. No mesenteric stranding or lymphadenopathy. Normal appendix. PELVIS: Bladder: Unremarkable for degree of distention. Reproductive organs: Unremarkable Extraperitoneal, lymph nodes, vessels: No lymphadenopathy. Osseous and body wall: Left chest wall pacemaker with leads in the right atrium and right ventricle. Multiple foci of soft tissue stranding in the anterior lower abdominal wall likely from injection granulomas. Multilevel degenerative changes of the spine. IMPRESSION: 1. No findings of acute aortic syndrome. No evidence of thoracic or abdominopelvic aneurysm. 2. No acute thoracic, abdominal or pelvic abnormality. ED POC Bedside US (per procedure note) Date of Service:02/20/2023 Procedure: Cardiac Ultrasound Performed by: Fernando Delgado DO Attending: Fernando Delgado DO Indication: Chest pain, low voltage Technique:Phased Array probe [place] Protocol: A time out was performed and the correct patient was verified. Sonographic Views:All (subcostal, PLSA, PSSA, Apical 4 ) Findings:The patient's heart was scanned utilizing the above noted probe. The following views were obtained and evaluated. Cardiac activity waspresent. Noanechoic fluid collection was seen inthe pericardium. Evidence of cardiac tamponadewas notpresent. Right heart evaluation showednormal function without dilatation. Left heart evaluation showednormal function without dilatation. Evaluation of the IVC size and respiratory variation waswithin normal limits. Patient tolerated the procedure well without apparent complication. Impression:Normal Exam Limitations:None Brief History of Present Illness: Patient is a 43-year-old male with eosinophilic esophagitis, factor V Leiden,previous symptomaticbradycardia afteran electrocution event status post pacemaker placement,and type 2 diabetes whois presented to the ED 02/19due to epigastric pain, nausea, and pain betweenthe scapula.Patient stated that hehad some mild nausea and nondescript painin the epigastrium andbetween his scapula without anyrecent injuriesor othernotable factors.Patient stated that he had some travel recentlybut otherwise had nothad any other notablechanges in lifestyle.He denied any recent medication changes.He denied any associated fevers, chills, vomiting, shortness of breath,urination changes, or bowel movement changes. Hospital Course: ED & EDOU Course: Workup in the ED was benign. Normal chemistries, no leukocytosis, no significant anemia.Troponin x2 negative.CT angios of the chest/abdomen/pelvis were benign without acute findings.Cardiology was consulted who recommended initiating metoprolol tartrate 25 mg twice daily. Pt was admitted to ED observation unit so electrophysiology attending can see the patient tomorrow, and for cardiac monitoring. Recs per EP consult note: "RECOMMENDATIONS: 1) Please start Metoprolol tartrate 25 mg BID. We will observe the patient overnight. (Review of telemetry in the morning shows paroxysms of SVT are much lower in frequency). 2 ) We discussed with the patient that his chest pain at rest is very atypical. It does not correlate with episodes of atrial tachycardia either. His CT scans do not show much coronary calcium. Oursuspicion for his chest pain being cardiac in nature is very low and does not warrant inpatient stay for stress testing. Recommend continued evaluation for noncardiac chest pain. 3 ) Patient's device interrogation shows 50% atrial pacing when set to a rate of 60. He has no ventricular pacing. We suspect his pacing needs will be even lower if his lower rate were to be set at less than 60. It wouldn't be unusual for a person his age to have a resting sinus rate lower than 60.We discussed with him that he can discuss this with his outpatient providers and this can help assess if he needs continued pacemaker support." Patientdid have reoccurring chest pain in the pxgyuho96/24.Rpt EKGunchanged.Bedside cardiac ultrasound was performed by ED attendingwhich revealed normal exam (see procedure note). P team including attending saw soco in the morning 02/20.Received a callfrom Mo with cardio logystating that after staffing with the attending,they feel that patient's chest pain is highlyunlikely cardiac. They reviewed histelemetryovernight and this morning and are not concerned.Still recommending metoprolol tartrate 25 mg twice daily. Did recommend thatpatient follow-up with his already establishedcardiologistregardinghis pacemaker settings.Alsoverbalized concern for potentialdrug-seeking behavior.Reassessed patient,states hehas follow-up with rheumatologyabout initiating anew medication for RAfor pain control.Encouraged to follow-up with PCPas well as needed. Exam on Discharge: Vitals & Measurements: T:36.8C TMIN:36.8C TMAX:36.9C HR:69(Monitored) RR:16 BP:107/67 SpO2:97% Oxygen Therapy:Room air WT:135kg WT:135.000kg(Dosing) BMI:38.61 kg/m2 General: A&Ox4, no acute distress, non-toxic appearance. Skin: Warm, dry. Head: Normocephalic, atraumatic. EENT:Conjunctiva clear, sclerae anicteric. Oral mucosa moist and non-erythematous. Neck: Supple, trachea midline. Cardio: RRR. No murmurs, rubs, or gallops. Pulm: Clear to auscultation bilaterally. Non-labored respirations. Abdomen: Soft, non-distended, non-tender, no guarding. MSK: No obvious deformities or swelling. ROM intact. Peripheral vascular: No peripheral edema. Extremities warm, well perfused. Lymph: No lymphadenopathy appreciated. Neuro: No obvious neurological deficits. Psych: Cooperative, appropriate mood and affect. Discharge Medications: 1.Pantoprazole (Protonix) 40 mg by mouth 2 times daily. 2.MetFORMIN (metformin 500 mg oral tablet) 1,000 mg (2 tab) by mouth 2 times daily. 3.Atorvastatin 40 mg by mouth once daily. 4.Pregabalin (Lyrica 200 mg oral capsule) 200 mg (1 cap) by mouth 2 times daily. 5.Empagliflozin (empagliflozin 25 mg oral tablet) 25 mg by mouth once a day (in the morning). 6.Rivaroxaban (rivaroxaban 20 mg oral tablet) 20 mg (1 tab) by mouth once a day (in the morning). with breakfast. 7.Magnesium oxide (magnesium oxide 400 mg (241.3 mg elemental magnesium) oral tablet) 400 mg (1 tab) by mouth once daily. 8.Lidocaine topical (lidocaine 5% patch) 1 patch topically once daily, as needed for pain. back /chest. 9.Fluticasone nasal (Flonase 50 mcg/inh nasal spray) 1 spray in each nostril once daily, as needed for allergy symptoms. 10.Acetaminophen (acetaminophen 500 mg oral tablet) 500 mg (1 tab) by mouth every 6 hours, as needed for pain. 11.Insulin aspart (NovoLOG FlexPen 100 units/mL injectable solution) See Instructions . sliding scale with meals. 12.Insulin glargine (Lantus Solostar Pen 100 units/mL subcutaneous solution) 26 unit subcutaneouslyat bedtime. 13.Amitriptyline (amitriptyline 25 mg oral tablet) 25 mg (1 tab) by mouth once daily. 14.Trolamine salicylate topical (Aspercreme 10% topical cream) 1 appl topically 4 times daily, as needed for Pain. 15.Thiamine (Vitamin B1 50 mg oral tablet) 50 mg (1 tab) by mouth once daily. 16.Multivitamin 1 tab by mouth once daily. 17.HYDROmorphone (HYDROmorphone 4 mg oral tablet) 4 mg (1 tab) by mouth every 6 hours, as needed for pain. RA pain. 18.Metoprolol (metoprolol tartrate 25 mg oral tablet) 25 mg (1 tab) by mouth 2 times daily. Allergies and Sensitivities: iodinated radiocontrast dyes(Severe)Anaphylaxis iodine(Severe)Anaphylaxis Adhesive bandage (Mild)Rash Ativanlow heart rate Depakote MagnevistItchiness with no hives or rash NSAIDS (nonsteroidal anti-inflammatory agents) Novocain cloZAPineUnknown gadopentetate dimeglumineItching, Urticaria ibuprofenWheezing, Dyspnea, Anaphylaxis ketorolacRash/Dermatitis, Anaphylaxis penicillinsWheezing phenytoinUnknown seafood topiramateUrticaria Tests Pending: Other Appointments: Follow Up withReturn to Emergency Department When:Only if needed Why: 1) You were seen in the emergency department today for chest pain. Your blood work was reassuring. The CT scan of your chest and abdomen did not reveal any acute abnormalities. The cardiology team was consulted and feel that your chest pain is not cardiac in nature. The cardiology team recommended following up with your already established octave board racker and initiating metoprolol tartrate 25 mg bid. They also encouraged you to discuss pacemaker settings with octave board racker. Follow up with your PCP (primary care physician) within 1-3 days for further management. 2) Continue taking your prescribed medications as directed. You may take up to 1000 mg acetaminophen (Tylenol) every 6 hours as needed for pain. 3) Return to the Emergency Department if your symptoms worsen, or if you experience any: fevers, sudden severe headaches, chest pain, shortness of breath, abdominal pain, continuous vomiting, confusion, sudden severe dizziness, or passing out. Contact a health care provider if: Your chest pain does not go away. You feel depressed. You have a fever. You notice changes in your symptoms or develop new symptoms. Get help right away if: Your chest pain gets worse. You have a cough that gets worse, or you cough up blood. You have severe pain in your abdomen. You faint. You have sudden, unexplained chest discomfort. You have sudden, unexplained discomfort in your arms, back, neck, or jaw. You have shortness of breath at any time. You suddenly start to sweat, or your skin gets clammy. You feel nausea or you vomit. You suddenly feel lightheaded or dizzy. You have severe weakness, or unexplained weakness or fatigue. Your heart begins to beat quickly, or it feels like it is skipping beats. Follow Up withFollow up with primary care provider When:Within Call physician within next business day Discharge Services: No Post-Acute Placement(s) Listed No Post-Acute Service(s) Listed Care Instructions: Please see discharge follow-up instructions. -Rx for metoprolol tartrate 25 mg twice daily sent to pt's preferred pharmacy. Follow-up with octave board racker. -Return precautions discussed as outlined in follow-up instructions.May return to the ED at anytime with new or worsening symptoms.Otherwise follow-up with PCP. . Advance Directive:No I personally spent30 minutes in discharge planning. I was involved in the care of the patient and verified the documentation. - Leon Delgado DO [1]CT Angio Abdomen and Pelvis; MD Manjit, [facility] 02/19/2023 18:21 EST Electronic Signature on File Electronically Reviewed/Signed by: Lien Huertas PA-C Author Signature Dt/Tm:02/20/2023 10:26 AM Department of Emergency Medicine Electronically Reviewed/Signed by: Fernando Delgado DO Cosigner Signature Dt/Tm: 02/20/2023 10:31AM Department of Emergency Medicine [facility] Emergency department Summary note * MD Mere, Alix: SILKE Padilla MD, [facility]: PERFORM Event Display: ED Summary Authored Date: [id number] Basic Information Time Seen: DO Delgado Garrett 02/19/2023 10:50 Chief Complaint being evaluated for possible liver cancer. c/o left scapular and epigastric pain, and nausea History of Present Illness Patient is a 43-year-old male with eosinophilic esophagitis, factor V Leiden,previous symptomaticbradycardia afteran electrocution event status post pacemaker placement,and type 2 diabetes whois presenting to the Emergency Department due to epigastric pain, nausea, and pain betweenthe scapula. Patient states that hehas some mild nausea and nondescript painin the epigastrium andbetween his scapula without anyrecent injuriesor othernotable factors. Patient states that hehas had some travel recentlybut otherwise has nothad any other notablechanges in lifestyle. He denies any recent medication changes. He denies any associated fevers, chills, vomiting, shortness of breath,urination changes, or bowel movement changes. [1] Physical Exam Vitals & Measurements T:36.9C HR:62(Monitored) RR:12 BP:100/66 SpO2:96% Oxygen Therapy:Room air HT:187cm WT:135kg WT:135.000kg(Dosing) BMI:38.61 Medical Decision Making Assumed care from: Ranulfo JORGE Attending of Record:Sandy DO _x Stable | _ Watch HPI: as per index HPI " " ED course:43-year-old male with the above history, presents to ED for acute chest pain. He was found to have recurrent chest pain [id number] with repeat EKG. There was concern for new T wave inversionin lead III. They got the CT aortogram which is pending by previous team which was negative for aortic dissection. Furthermore,we also given of aspirin. His initial heart score was at least 3. We consulted cardiology. Who was concerned given his history of atrial tachycardia. They willfollow-up with him tomorrow when the EP attending sees him. In the interim he will beplaced in ED observation for further management. Care was transitioned to the ED observation TAMIA. Follow-up on:CT Disposition:Pending CT Assessment/Plan Acute chest pain Medication Reconciliation Changed amitriptyline (amitriptyline 25 mg oral tablet)1 tab(s) by mouth once daily. fluticasone nasal (Flonase 50 mcg/inh nasal spray)1 spray(s) in each nostril once daily as needed as needed for allergy symptoms. insulin glargine (Lantus Solostar Pen 100 units/mL subcutaneous solution)26 unit(s) subcutaneously at bedtime. rivaroxaban (rivaroxaban 20 mg oral tablet)1 tab(s) by mouth once a day (in the morning). with breakfast. Unchanged acetaminophen (acetaminophen 500 mg oral tablet)1 tab(s) by mouth every 6 hours as needed as neededfor pain. [id number] Milligram by mouth once daily. empagliflozin (empagliflozin 25 mg oral tablet)25 Milligram by mouth once a day (in the morning). HYDROmorphone (HYDROmorphone 4 mg oral tablet)1 tab(s) by mouth every 6 hours as needed as needed for pain. RA pain. insulin aspart (NovoLOG FlexPen 100 units/mL injectable solution)sliding scale with meals. lidocaine topical (lidocaine 5% patch)1 patch(es) topically once daily as needed pain. back / chest. magnesium oxide (magnesium oxide 400 mg (241.3 mg elemental magnesium) oral tablet)1 tab(s) by mouth once daily. metformin (metformin 500 mg oral tablet)2 tab(s) by mouth 2 times daily. metoprolol (Lopressor 50 mg oral tablet)0.5 tab(s) by mouth 2 times daily for 14 Days. Refills: 0. multivitamin1 tab(s) by mouth once daily. pantoprazole (Protonix)40 Milligram by mouth 2 times daily. pregabalin (Lyrica 200 mg oral capsule)1 cap by mouth 2 times daily. thiamine (Vitamin B1 50 mg oral tablet)1 tab(s) by mouth once daily. trolamine salicylate topical (Aspercreme 10% topical cream)1 tamia topically 4 times daily as needed Pain. Attestation Multiple EKGs during this patient's ED stay showed somemild T wave inversionin one of the inferior leads. His troponins are negative. He complains of persistent pain. CT is negative. Cardiology recommended overnight stay for EP to see him in the morning. He will yost ED obs patient. Problem List/Past Medical History Ongoing Eosinophilic esophagitis Factor V Leiden mutation Fibromyalgia Gastropathy GERD (gastroesophageal reflux disease) Hypercholesterolemia Mesenteric panniculitis Paroxysmal supraventricular tachycardia Pericarditis Type 2 diabetes mellitus Procedure/Surgical History REMOVAL OF GALLBLADDER (1999)APPENDECTOMY (1993) Medication Administration Administered: Medications: Mylanta, 30 mL, PO (02/19/2023 12:18 EST) Pepcid, 20 mg, IV (02/19/2023 12:18 EST) morphine, 4 mg, IV Push (02/19/2023 13:33 EST) SOLU-Medrol, 40 mg, IV (02/19/2023 13:33 EST) aspirin, 324 mg, PO (02/19/2023 16:01 EST) Benadryl, 50 mg, IV (02/19/2023 16:35 EST) Tylenol, 1000 mg, PO (02/19/2023 16:35 EST) Omnipaque 350, 100 mL, contrast-IV (02/19/2023 18:12 EST) morphine, 4 mg, IV Push (02/19/2023 20:03 EST) amitriptyline, 25 mg, PO (02/19/2023 23:33 EST) atorvastatin, 40 mg, PO (02/19/2023 23:33 EST) Lyrica, 200 mg, PO (02/19/2023 23:33 EST) magnesium oxide, 400 mg, PO (02/19/2023 23:33 EST) metFORMIN, 1000 mg, PO (02/19/2023 23:33 EST) metoprolol tartrate, 25 mg, PO (02/19/2023 23:33 EST) Protonix, 40 mg, PO (02/19/2023 23:33 EST) Not Administered: Medications: amitriptyline (Not Appropriate at this Time) rivaroxaban (Not Appropriate at this Time) Toradol (Patient Refused) Tylenol (Already Done) Vitamin B1 (Not Appropriate at this Time) Allergies iodinated radiocontrast dyes(Severe)Anaphylaxis iodine(Severe)Anaphylaxis Adhesive bandage (Mild)Rash Ativanlow heart rate Depakote MagnevistItchiness with no hives or rash NSAIDS (nonsteroidal anti-inflammatory agents) Novocain cloZAPineUnknown gadopentetate dimeglumineItching, Urticaria ibuprofenWheezing, Dyspnea, Anaphylaxis ketorolacRash/Dermatitis, Anaphylaxis penicillinsWheezing phenytoinUnknown seafood topiramateUrticaria Lab Results Chemistry LATEST RESULTS HISTORICAL RESULTS Na 02/19/23 12:11 144 mmol/L 11/27/22 138 mmol/L K 02/19/23 12:11 4.2 mmol/L 11/27/22 4.2 mmol/L Cl- 02/19/23 12:11 108 mmol/L High 11/27/22 101 mmol/L HCO3 02/19/23 12:11 25 mmol/L 11/27/22 26 mmol/L Anion Gap 02/19/23 12:11 11 mmol/L 11/27/22 11 mmol/L BUN 02/19/23 12:11 11 mg/dL 11/27/22 25 mg/dL High Cret 02/19/23 12:11 1.05 mg/dL 11/27/22 0.98 mg/dL Estimated CrCl 02/19/23 13:12 133.26 11/27/22 150.49 eGFR CKD-EPI 02/19/23 12:11 >90 mL/min/1.73 m2 11/27/22 >90 mL/min/1.73 m2 Glu 02/19/23 12:11 203 mg/dL High 11/27/22 138 mg/dL High Ca 02/19/23 12:11 9.5 mg/dL 11/27/22 8.9 mg/dL Mg 02/19/23 12:11 2.0 mg/dL 11/26/22 1.9 mg/dL CBC LATEST RESULTS HISTORICAL RESULTS WBC 02/19/23 12:11 4.05 K/uL 11/27/22 5.19 K/uL Hgb 02/19/23 12:11 12.7 g/dL Low 11/27/22 12.1 g/dL Low Hct 02/19/23 12:11 37.1 % Low 11/27/22 36.3 % Low RBC 02/19/23 12:11 4.29 M/uL Low 11/27/22 4.18 M/uL Low MCV 02/19/23 12:11 86.5 fL 11/27/22 86.8 fL MCHC 02/19/23 12:11 34.2 g/dL 11/27/22 33.3 g/dL MCH 02/19/23 12:11 29.6 pg 11/27/22 28.9 pg RDW 02/19/23 12:11 14.0 % 11/27/22 13.6 % Plts 02/19/23 12:11 175 K/uL 11/27/22 218 K/uL MPV 02/19/23 12:11 10.6 fL 11/27/22 9.6 fL Type of Diff: 02/19/23 12:11 AUTO 11/25/22 AUTO Immature Gran% 02/19/23 12:11 0.5 % 11/25/22 0.2 % Neut% 02/19/23 12:11 54.6 % 11/25/22 51.7 % Lymph% 02/19/23 12:11 30.1 % 11/25/22 30.2 % [place]% 02/19/23 12:11 8.1 % 11/25/22 7.9 % Baso% 02/19/23 12:11 0.5 % 11/25/22 0.9 % Eos% 02/19/23 12:11 6.2 % 11/25/22 9.1 % Immat Gran, Abs 02/19/23 12:11 0.02 K/uL 11/25/22 0.01 K/uL Neut, Abs 02/19/23 12:11 2.21 K/uL 11/25/22 2.22 K/uL Lymph, Abs 02/19/23 12:11 1.22 K/uL 11/25/22 1.30 K/uL [place], Abs 02/19/23 12:11 0.33 K/uL 11/25/22 0.34 K/uL Baso, Abs 02/19/23 12:11 0.02 K/uL 11/25/22 0.04 K/uL Eos, Abs 02/19/23 12:11 0.25 K/uL 11/25/22 0.39 K/uL Liver/GI LATEST RESULTS HISTORICAL RESULTS ALT 02/19/23 12:11 27 unit/L 09/26/22 21 unit/L T Bili 02/19/23 12:11 0.6 mg/dL 09/26/22 0.5 mg/dL Alk Phos 02/19/23 12:11 88 unit/L 09/26/22 105 unit/L AST 02/19/23 12:11 14 unit/L 09/26/22 16 unit/L Lipase 02/19/23 12:11 28 unit/L 09/30/22 22 unit/L Nutrition LATEST RESULTS HISTORICAL RESULTS Alb 02/19/23 12:11 4.1 g/dL 09/26/22 4.4 g/dL Prot 02/19/23 12:11 6.6 g/dL 09/26/22 6.7 g/dL Cardiac/Lipi LATEST RESULTS HISTORICAL RESULTS Troponin T Delta 02/19/23 18:21 NOT CALCULATED 11/27/22 NOT CALCULATED Troponin T 02/19/23 18:21 <0.010 ng/mL 11/27/22 <0.010 ng/mL Endocrine LATEST RESULTS HISTORICAL RESULTS Gluc Meter 02/19/23 22:27 190 mg/dL High 11/27/22 176 mg/dL High Diagnostic Results (02/19/2023 18:[address] Angio Abdomen and Pelvis) IMPRESSION: 1. No findings of acute aortic syndrome. No evidence of thoracic or abdominopelvic aneurysm. 2. No acute thoracic, abdominal or pelvic abnormality. [2] ECG 1542: NH interval, QRS duration, QT/QTc intervals are within normal limits. No ST elevations or depressions. T wave inversion in lead III compared to previous EKG. No axis deviation. Normal sinus rhythm with 81 bpm. Low voltage QRS. Overall concerning fornew T wave inversion compared to previous EKG. 1911: Similar EKG as before with normal sinus rhythm. No new T wave inversionsor ST elevations or depression. Poor R wave progression. Overall similar to previous EKG with rate at78 bpm. [1]ED Physician Note; MD Ranulfo, Quinten Colon 02/19/2023 12:02 EST [2]CT Angio Abdomen and Pelvis; MD Manjit [facility] 02/19/2023 18:21 EST Electronic Signature on File Electronically Reviewed/Signed by: Heidy Padilla Author Signature Dt/Tm:02/20/2023 01:21 AM Resident Department of Emergency Medicine Electronically Reviewed/Signed by: Alix Severino MD Cosigner Signature Dt/Tm: 02/20/2023 03:52 PM Department of Emergency Medicine * MD Winchester David Anthony: PERFORM, MODIFY, MODIFY DO Delgado Garrett: MODIFY Event Display: ED Summary Authored Date: [id number] Basic Information Time Seen: DO Delgado Garrett 02/19/2023 10:50 Chief Complaint being evaluated for possible liver cancer. c/o left scapular and epigastric pain, and nausea History of Present Illness Patient is a 43-year-old male with eosinophilic esophagitis, factor V Leiden,previous symptomaticbradycardia afteran electrocution event status post pacemaker placement,and type 2 diabetes whois presenting to the Emergency Department due to epigastric pain, nausea, and pain betweenthe scapula. Patient states that hehas some mild nausea and nondescript painin the epigastrium andbetween his scapula without anyrecent injuriesor othernotable factors. Patient states that hehas had some travel recentlybut otherwise has nothad any other notablechanges in lifestyle. He denies any recent medication changes. He denies any associated fevers, chills, vomiting, shortness of breath,urination changes, or bowel movement changes. Review of Systems A 14 point review of systems was obtained and was negative except for as listed above. Physical Exam Vitals & Measurements T:36.9C HR:60(Monitored) RR:19 BP:107/65 SpO2:100% HT:187cm WT:135kg WT:135.000kg(Dosing) BMI:38.61 General: NAD, alert and cooperative. Appears stated age and is well nourished. Eyes: EOMI. Sclera are anicteric and conjunctiva are without injection. Cardiovascular: RRR. Normal S1/S2 present. No noted edema. 2+ peripheral pulses at the ankles bilaterally. Lungs: CTAB without wheezes, rales, rhonchi. No increased WOB. On RA. Abdomen: Soft, NTND. MSK: FROM, no clubbing/cyanosis. Neuro: No facial asymmetry at rest or with activation. No focal deficits. AOx3. Psych: Appropriate and cooperative. Congruent affect with mood. Good insight and judgement. Skin: Warm, dry, intact, with no noted rash. Medical Decision Making Patient is havingepigastric pain as well as pain between the scapula awith a complicated past medical historywith reportedabdominal aortic aneurysm in the past that wasapproximately 4 cm per the patient's report. Based upon his current symptoms I am concerned about the potential for an aortic dissection versus worsening AAA for which we will be getting a CT aortogramand evaluation of thisconcern. Patient has been feelingoverall weak in association withthe pain that he is having in his epigastrium and in the middle of his backwhich we will be evaluating for the use of aCBC, CMP, magnesium, and a lipase level. Based upon the potential for a cardiac related etiologywe will be obtaining atroponin level as well. Plan explained to the patient to his satisfactionhe is amenable to this plan. Reexamination/Reevaluation 1215: Chest x-ray was concerning for hyperinflation likely related to obesity hypoventilation syndrome without evidence of other acute abnormalities or mediastinal widening. 1300:Lab results were evaluated and were not significant for any life- threatening abnormalities. Results were explained to the patient. Any questions that the patient had regarding the results were discussed to patient satisfaction. Patient was identified to haveanaphylactic reactions to IV dye within his medical history, however, he alsohad recently within the past few months receiveda significant bolus of IV contrast withoutany evidence ofallergic reactions within the charts. Prior to him previously receiving IV dye he waspremedicated to the use of Benadryl andSolu-Medrol for which we will be ordering these medications prior to administration of IV contrastduringthis time. We have a high level suspicion that the patient's allergy list in the chart is either inaccurate jaylin outdated at this time as the patient has undergonemultipleevents in which theyreceived IV contrastbetween that time in which the allergy was first mentioned on the chartand today. This was discussed with radiology as well who is amenable to this plan. Premedicationprior toobtaining imaging will lead to theCT scan occurring shortly after my signout. 1500: Patient signed out to the incoming emergency medicine teampending completion of CT aortogram to assist with determining disposition. Assessment/Plan Acute chest pain Medication Reconciliation Unchanged acetaminophen (acetaminophen 500 mg oral tablet)1 tab(s) by mouth every 6 hours as needed as neededfor pain. amitriptyline (amitriptyline 25 mg oral tablet) [id number] Milligram by mouth once daily. diclofenac topical (Voltaren 1% topical gel)1 tamia topically 4 times daily as needed Pain. empagliflozin (empagliflozin 25 mg oral tablet)25 Milligram by mouth once a day (in the morning). fentaNYL (fentaNYL 25 mcg/hr transdermal film, extended release)1 patch(es) topically every 72 hours. fluticasone nasal (Flonase 50 mcg/inh nasal spray)1 spray(s) in each nostril once daily. insulin aspart (NovoLOG FlexPen 100 units/mL injectable solution)sliding scale with meals. insulin glargine (Lantus Solostar Pen 100 units/mL subcutaneous solution)36 unit(s) subcutaneously at bedtime. lidocaine topical (lidocaine 5% patch)1 patch(es) topically once daily as needed pain. back / chest. magnesium oxide (magnesium oxide 400 mg (241.3 mg elemental magnesium) oral tablet)1 tab(s) by mouth once daily. metformin (metformin 500 mg oral tablet)2 tab(s) by mouth 2 times daily. metoprolol (Lopressor 50 mg oral tablet)0.5 tab(s) by mouth 2 times daily for 14 Days. Refills: 0. multivitamin1 tab(s) by mouth once daily. pantoprazole (Protonix)40 Milligram by mouth 2 times daily. pregabalin (Lyrica 200 mg oral capsule)1 cap by mouth 2 times daily. rivaroxaban (rivaroxaban 20 mg oral tablet)1 tab(s) by mouth once daily. thiamine (Vitamin B1 50 mg oral tablet)1 tab(s) by mouth once daily. trolamine salicylate topical (Aspercreme 10% topical cream)1 tamia topically 4 times daily as needed Pain. Attestation I personally performed a history and physical exam and discussed the management plan with the resident. I independently confirmed lim portions of the history and physical exam, and agree with resident note which I have reviewed and edited to reflect my findings. MDM performed by me.Arik Delgado DO Problem List/Past Medical History Ongoing Eosinophilic esophagitis Factor V Leiden mutation Fibromyalgia Gastropathy GERD (gastroesophageal reflux disease) Hypercholesterolemia Mesenteric panniculitis Paroxysmal supraventricular tachycardia Pericarditis Type 2 diabetes mellitus Procedure/Surgical History REMOVAL OF GALLBLADDER (1999)APPENDECTOMY (1993) Allergies iodinated radiocontrast dyes(Severe)Anaphylaxis iodine(Severe)Anaphylaxis Adhesive bandage (Mild)Rash Ativanlow heart rate Depakote IVP dyeDyspnea, Anaphylaxis MagnevistItchiness with no hives or rash NSAIDS (nonsteroidal anti-inflammatory agents) Novocain cloZAPineUnknown gadopentetate dimeglumineItching, Urticaria ibuprofenWheezing, Dyspnea, Anaphylaxis ketorolacRash/Dermatitis, Anaphylaxis penicillinsWheezing phenytoinUnknown seafood topiramateUrticaria Lab Results Chemistry LATEST RESULTS HISTORICAL RESULTS Na 02/19/23 12:11 144 mmol/L 11/27/22 138 mmol/L K 02/19/23 12:11 4.2 mmol/L 11/27/22 4.2 mmol/L Cl- 02/19/23 12:11 108 mmol/L High 11/27/22 101 mmol/L HCO3 02/19/23 12:11 25 mmol/L 11/27/22 26 mmol/L Anion Gap 02/19/23 12:11 11 mmol/L 11/27/22 11 mmol/L BUN 02/19/23 12:11 11 mg/dL 11/27/22 25 mg/dL High Cret 02/19/23 12:11 1.05 mg/dL 11/27/22 0.98 mg/dL Estimated CrCl 02/19/23 13:12 133.26 11/27/22 150.49 eGFR CKD-EPI 02/19/23 12:11 >90 mL/min/1.73 m2 11/27/22 >90 mL/min/1.73 m2 Glu 02/19/23 12:11 203 mg/dL High 11/27/22 138 mg/dL High Ca 02/19/23 12:11 9.5 mg/dL 11/27/22 8.9 mg/dL Mg 02/19/23 12:11 2.0 mg/dL 11/26/22 1.9 mg/dL CBC LATEST RESULTS HISTORICAL RESULTS WBC 02/19/23 12:11 4.05 K/uL 11/27/22 5.19 K/uL Hgb 02/19/23 12:11 12.7 g/dL Low 11/27/22 12.1 g/dL Low Hct 02/19/23 12:11 37.1 % Low 11/27/22 36.3 % Low RBC 02/19/23 12:11 4.29 M/uL Low 11/27/22 4.18 M/uL Low MCV 02/19/23 12:11 86.5 fL 11/27/22 86.8 fL MCHC 02/19/23 12:11 34.2 g/dL 11/27/22 33.3 g/dL MCH 02/19/23 12:11 29.6 pg 11/27/22 28.9 pg RDW 02/19/23 12:11 14.0 % 11/27/22 13.6 % Plts 02/19/23 12:11 175 K/uL 11/27/22 218 K/uL MPV 02/19/23 12:11 10.6 fL 11/27/22 9.6 fL Type of Diff: 02/19/23 12:11 AUTO 11/25/22 AUTO Immature Gran% 02/19/23 12:11 0.5 % 11/25/22 0.2 % Neut% 02/19/23 12:11 54.6 % 11/25/22 51.7 % Lymph% 02/19/23 12:11 30.1 % 11/25/22 30.2 % [place]% 02/19/23 12:11 8.1 % 11/25/22 7.9 % Baso% 02/19/23 12:11 0.5 % 11/25/22 0.9 % Eos% 02/19/23 12:11 6.2 % 11/25/22 9.1 % Immat Gran, Abs 02/19/23 12:11 0.02 K/uL 11/25/22 0.01 K/uL Neut, Abs 02/19/23 12:11 2.21 K/uL 11/25/22 2.22 K/uL Lymph, Abs 02/19/23 12:11 1.22 K/uL 11/25/22 1.30 K/uL [place], Abs 02/19/23 12:11 0.33 K/uL 11/25/22 0.34 K/uL Baso, Abs 02/19/23 12:11 0.02 K/uL 11/25/22 0.04 K/uL Eos, Abs 02/19/23 12:11 0.25 K/uL 11/25/22 0.39 K/uL Liver/GI LATEST RESULTS HISTORICAL RESULTS ALT 02/19/23 12:11 27 unit/L 09/26/22 21 unit/L T Bili 02/19/23 12:11 0.6 mg/dL 09/26/22 0.5 mg/dL Alk Phos 02/19/23 12:11 88 unit/L 09/26/22 105 unit/L AST 02/19/23 12:11 14 unit/L 09/26/22 16 unit/L Lipase 02/19/23 12:11 28 unit/L 09/30/22 22 unit/L Nutrition LATEST RESULTS HISTORICAL RESULTS Alb 02/19/23 12:11 4.1 g/dL 09/26/22 4.4 g/dL Prot 02/19/23 12:11 6.6 g/dL 09/26/22 6.7 g/dL Cardiac/Lipi LATEST RESULTS HISTORICAL RESULTS Troponin T Delta 02/19/23 12:11 NOT CALCULATED 11/27/22 NOT CALCULATED Troponin T 02/19/23 12:11 <0.010 ng/mL 11/27/22 <0.010 ng/mL Endocrine LATEST RESULTS HISTORICAL RESULTS Gluc Meter 02/19/23 12:05 181 mg/dL High 11/27/22 176 mg/dL High Diagnostic Results Chest XR: Hypoinflation without an acute abnormality. Electronic Signature on File Electronically Reviewed/Signed by: Quinten Winchester MD Author Signature Dt/Tm:02/19/2023 08:09 PM Resident Department of Emergency Medicine Electronically Reviewed/Signed by: Fernando Delgado DO Cosigner Signature Dt/Tm: 02/20/2023 07:28AM Department of Emergency Medicine [facility] Emergency department procedure note * DO Delgado Garrett: PERFORM Event Display: ED Proc Authored Date: [id number] Name:DAVID BURRIS Jr. Patient Number:[id number] :1980 Date of Service:02/20/2023 Procedure: Cardiac Ultrasound Performed by: Fernando Delgado DO Attending: Fernando Delgado DO Indication: Chest pain, low voltage Technique:Phased Array probe [place] Protocol: A time out was performed and the correct patient was verified. Sonographic Views:All (subcostal, PLSA, PSSA, Apical 4 ) Findings:The patient's heart was scanned utilizing the above noted probe. The following views were obtained and evaluated. Cardiac activity waspresent. Noanechoic fluid collection was seen inthe pericardium. Evidence of cardiac tamponadewas notpresent. Right heart evaluation showednormal function without dilatation. Left heart evaluation showednormal function without dilatation. Evaluation of the IVC size and respiratory variation waswithin normal limits. Patient tolerated the procedure well without apparent complication. Impression:Normal Exam Limitations:None Electronic Signature on File Electronically Reviewed/Signed by: Fernando Delgado DO Author Signature Dt/Tm:02/20/2023 07:29 AM Department of Emergency Medicine GC * MD Ranulfo, Quinten Colon: UDAY Delgado DO, Garrett: MODIFY Event Display: ED Proc Authored Date: [id number] Name:DAVID BURRIS Jr. Patient Number:[id number] :1980 Date of Service:02/19/2023 Procedure: Ultrasound guided peripheral IV insertion Performed by: Quinten Winchester MD Attending:Fernando Delgado DO Indication: Difficult IV access [place] Protocol:Time out was performed. Patient, side, site and procedure was verified. Consent: Verbal informed consent was obtained. Procedure Summary: After an appropriate timeout the site was prepped with chlorhexidine and alcohol. Under continuous ultrasound guidance an 20-gauge 3.25 inch Angiocath was placed in the right basilic vein on the first attempt. Normal venous return and flow was obtained. The catheter was secured in place. A sterile opsite was placed over the catheter at the insertion site. The patient tolerated this procedure well and there wereno immediate complications. Estimated Blood Loss (EBL):5 ml Ultrasound guided:Yes I supervised the procedureand was present for lim portions. Leon Delgado DO Electronic Signature on File Electronically Reviewed/Signed by: Quinten Winchester MD Author Signature Dt/Tm:02/19/2023 08:10 PM Resident Department of Emergency Medicine Electronically Reviewed/Signed by: Fernando Delgado DO Cosigner Signature Dt/Tm: 02/20/2023 07:25AM Department of Emergency Medicine [facility] Patient Care team information Care Team Personnel Name: Rasheeda Benitez Amy E Position: Pharmacist Member Role: Pharmacy - Lifetime Address: Address: [address] [address] Name: Rasheeda Eng Keri Position: Pharmacist Member Role: Pharmacy - Lifetime Name: TAMMY Huertas Samantha Position: Physician [employer] - [facility] Member Role: * Quality Review (1 day after created) Address: Address: [address] [place] [address] [place] Name: HANK De Luna, Elizabeth Position: RN Member Role: Direct Care Nurse Name: DO Delgado Garrett Position: Physician - [facility] [place] Member Role: * Quality Review (1 day after created) Address: Address: [address] [place] [address] [place] Name: Marion Blas Position: Admissions I Name: TAMMY Middleton Steven Position: Physician [employer] - [facility] Member Role: Covering (3 days after created) Address: Address: [address] [place] [address] [place] Name: DO Zayas Matthew Scott Position: Physician - [facility] [place] Address: Address: [address] [place] [address] [place] Name: HANK Avilez Rachel Position: RN Member Role: Direct Care Nurse Care Team Related Persons Name: LISBETH ABDALLA Address: [address] [place] [phone]
--- OUTSIDE RECORDS SUMMARY | 2023-05-27 09:27 | External Medical Summary | Continuity of Care Document ---
Author Name Unknown Organization [facility] Address [address] [place] [phone] Encounter [facility] [id number] Date(s): 11/25/22 - 11/27/[address] [id number] [phone] Encounter Diagnosis History of factor V Leiden mutation(Discharge Diagnosis) - 11/25/22 Oxygen desaturation(Discharge Diagnosis) - 11/25/22 Atypical chest pain(Discharge Diagnosis) - 11/27/22 Discharge Disposition: Home or Self Care Attending Physician: MD Hearn Jagdesh Admitting Physician: DO Monique Meghan Anne Allergies, Adverse Reactions, Alerts Substance Reaction Severity Status ibuprofen Wheezing Dyspnea Anaphylaxis Active phenytoin Unknown Active ketorolac Rash/Dermatitis Anaphylaxis Active gadopentetate dimeglumine Itching Urticaria Active topiramate Urticaria Active penicillins Wheezing Active iodinated radiocontrast dyes Anaphylaxis Severe Active Novocain Active Ativan low heart rate Active Magnevist Itchiness with no hives or rash Active Depakote Active Adhesive bandage Rash Mild Active seafood Active IVP dye Dyspnea Anaphylaxis Active iodine Anaphylaxis Severe Active NSAIDS (nonsteroidal anti-inflammatory agents) Active cloZAPine Unknown Active Functional Status 11/27/22 Neurological Symptoms None ADLs Minimal assistance Facial Symmetry Symmetric Gait Unsteady Swallowing Difficulty None Level of Consciousness Neuro Alert Hallucinations Present None History of Fall in Last 3 Months Gonzales N o Presence of Secondary Diagnosis Gonzales Ye s Use of Ambulatory Aid Gonzales None/bedrest /nurse assist IV/Heparin Lock Fall Risk Gonzales Yes Gait/Transferring Fall Risk Gonzales Normal /bedrest/immobile Mental Status Fall Risk Gonzales Oriented t o own ability Gonzales Fall Risk Score 35 Gonzales Fall Risk Low Risk Speech Pattern Clear Immunizations Given and Recorded Vaccine Date Status Refusal Reason tetanus/diphtheria/pertuss, acel (Tdap) 08/22/22 G iven Medications acetaminophen 500 mg oral tablet Start: 03/24/22 13:15:00 EST, 1 tab, PO, q6h, PRN: as needed for pain Start Date: 03/24/22 Status: Ordered amitriptyline 25 mg oral tablet Start: 09/19/22 1:02:00 EDT Start Date: 09/19/22 Status: Ordered Aspercreme 10% topical cream Start: 11/26/22 8:44:00 EDT, 1 appl, topical, qid, PRN: Pain Start Date: 11/26/22 Status: Ordered atorvastatin Start: 06/14/18 4:54:00 EDT, 40 mg =, PO, Daily Start Date: 06/14/18 Status: Ordered empagliflozin 25 mg oral tablet Start: 07/19/21 2:19:00 EDT, 25 mg =, PO, qAM Start Date: 07/19/21 Status: Ordered fentaNYL 25 mcg/hr transdermal film, extended release Start: 12/09/21 10:12:00 EDT, 1 patch, topical, q72h, Refills: 0 Start Date: 12/09/21 Status: Ordered Flonase 50 mcg/inh nasal spray Start: 03/22/22 22:14:00 EST, 1 spray, each nostril, Daily Start Date: 03/22/22 Status: Ordered HumaLOG Sliding Scale Moderate Dose Range: SSI, injection, subQ, 11/26/22 22:00:00 EDT, 11/26/22 22:00:00 EDT, Estimated correction need for patients using total insulin daily dose between 61 and 100 units., 11/25/22 19:42:00 EDT Start Date: 11/26/22 Stop Date: 11/26/22 Status: Completed Lantus Solostar Pen 100 units/mL subcutaneous solution Start: 04/29/22 10:37:00 EST, 36 unit =, subQ, qhs Start Date: 04/29/22 Status: Ordered lidocaine 5% patch Start: 03/22/22 22:14:00 EST, 1 patch, topical, Daily, back / chest, PRN: pain Start Date: 03/22/22 Status: Ordered Lopressor 25 mg, tablet, PO, 11/27/22 9:00:00 EDT, 11/27/22 9:00:00 EDT, 11/25/22 20:40:00 EDT Start Date: 11/27/22 Stop Date: 11/27/22 Status: Completed Lopressor 50 mg oral tablet Start: 09/19/22 13:34:00 EDT, 0.5 tab, PO, bid, Disp# 14 tab, Refills: 0 Start Date: 09/19/22 Stop Date: 10/03/22 Status: Ordered Lyrica 200 mg oral capsule [...] Start: 07/22/21 10:57:00 EDT, 1 tab, PO, Daily Start Date: 07/22/21 Status: Ordered Vitamin B1 50 mg oral tablet Start: 11/26/22 8:46:00 EDT, 1 tab, PO, Daily Start Date: 11/26/22 Status: Ordered Voltaren 1% topical gel Start: 03/22/22 22:14:00 EST, 1 appl, topical, qid, PRN: Pain Start Date: 03/22/22 Status: Ordered Mental Status 11/26/22 Primary Language Bulgarian Problem List Condition Confirmation Course Effective Dates [...] Effective Dates Health Status Clinical Service Informant Oxygen desaturation Discharge Diagnosis 11/25/22 Non-Specified History of factor V Leiden mutation Discharge Diagnosis 11/25/22 Non-Specified Atypical chest pain Discharge Diagnosis 11/27/22 Procedures Procedure Date Related Diagnosis Body Site Status REMOVAL OF GALLBLADDER 1999 Co mpleted APPENDECTOMY 1993 Completed Results Laboratory List Name Date Glucose Meter (GLUCOSE METER) 11/27/22 Troponin T 11/27/22 Glucose Meter (GLUCOSE METER) 11/27/22 Basic Metabolic Panel (BMP) 11/27/22 Complete Blood Count (CBC w Platelets) Troponin T 11/27/22 Troponin T 11/27/22 Blood Glucose Monitoring Nurse POC (Gluc ose Meter Nurse POC) 11/26/22 Glucose Meter (GLUCOSE METER) 11/26/22 Blood Glucose Monitoring Nurse POC (Gluc ose Meter Nurse POC) 11/26/22 Blood Glucose Monitoring Nurse POC (Gluc ose Meter Nurse POC) 11/26/22 Added on Lab order 11/26/22 C Reactive Protein, Quantitation (CRP QU ANTITATION) 11/26/22 Erythrocyte Sedimentation Rate (SEDIMENT ATION RATE) 11/26/22 Basic Metabolic Panel (BMP) 11/26/22 Complete Blood Count (CBC w Platelets) Magnesium Level 11/26/22 Phosphorus Level 11/26/22 Added on Lab order 11/25/22 Basic Metabolic Panel (BMP) 11/25/22 Complete Blood Count w Differential (CBC w Platelets and Diff) 11/25/22 D-Dimer, Quantitative 11/25/22 NT-Pro BNP 11/25/22 Most recent to oldest [Reference Range]: 1 2 3 CReacProt [<0.50 mg/dL] 0.93 mg/dL *HI* (11/26/22 7:47 AM) eGFR CKD-EPI [>60 mL/min/1.73 m2] >90 mL/min/1.73 m2 (11/27/22 2:34 AM) >90 mL/min/1.73 m2 (11/26/22 7:47 AM) >90 mL/min/1.73 m2 (11/25/22 7:58 AM) Blood Glucose [70-120 mg/dL] 211 mg/dL 1 *HI* (11/26/22 9:51 PM) 211 mg/dL 2 *HI* (11/26/22 9:24 PM) 196 mg/dL 3 *HI* (11/26/22 4:52 PM) Blood Glucose Ref Range [70 - 120 mg/dl] (11/26/22 9:24 PM) [70 - 120 mg/dl] (11/26/22 4:52 PM) [70 - 120 mg/dl] (11/26/22 11:36 AM) Request of Physician ESR CRP (11/26/22 7:48 AM) BNP (11/25/22 7:49 AM) Action Taken YES (11/26/22 7:48 AM) YES (11/25/22 7:49 AM) D-dimer (q) [<0.54 ug/mL FEU] 1.03 ug/mL FEU 4 *HI* (11/25/22 7:58 AM) BNP, NT-Pro [<125 pg/mL] <36 pg/mL 5 (11/25/22 7:58 AM) Estimated CrCl 150.49 mL/min (11/27/22 3:26 AM) 186.69 mL/min (11/26/22 8:46 AM) 160.31 mL/min (11/25/22 8:46 AM) Troponin T [<0.010 ng/mL] <0.010 ng/mL 6 (11/27/22 7:43 AM) <0.010 ng/mL 7 (11/27/22 4:05 AM) REQUEST CREDITED ng/mL 8 (11/27/22 2:35 AM) Troponin T Delta NOT CALCULATED (11/27/22 7:43 AM) NOT CALCULATED (11/27/22 4:05 AM) REQUEST CREDITED 9 (11/27/22 2:35 AM) MPV [9.0-12.2 fL] 9.6 fL (11/27/22 2:34 AM) 9.7 fL (11/26/22 7:47 AM) 9.8 fL (11/25/22 7:58 AM) Immature Gran% 0.2 % (11/25/22 7:58 AM) Neut% 51.7 % (11/25/22 7:58 AM) Lymph% 30.2 % (11/25/22 7:58 AM) [place]% 7.9 % (11/25/22 7:58 AM) Baso% 0.9 % (11/25/22 7:58 AM) Eos% 9.1 % (11/25/22 7:58 AM) Immat Gran, Abs [0-0.4 K/uL] 0.01 K/uL (11/25/22 7:58 AM) Neut, Abs [2.0-7.7 K/uL] 2.22 K/uL (11/25/22 7:58 AM) Lymph, Abs [1.0-3.4 K/uL] 1.30 K/uL (11/25/22 7:58 AM) Flat[place], Abs [0-1.0 K/uL] 0.34 K/uL (11/25/22 7:58 AM) Baso, Abs [0-0.1 K/uL] 0.04 K/uL (11/25/22 7:58 AM) Eos, Abs [0-0.5 K/uL] 0.39 K/uL (11/25/22 7:58 AM) Type of Diff: AUTO (11/25/22 7:58 AM) RDW [11.5-14.2 %] 13.6 % (11/27/22 2:34 AM) 13.5 % (11/26/22 7:47 AM) 13.7 % (11/25/22 7:58 AM) Anion Gap [5-14 mmol/L] 11 mmol/L (11/27/22 2:34 AM) 10 mmol/L (11/26/22 7:47 AM) 14 mmol/L (11/25/22 7:58 AM) BUN [6-23 mg/dL] 25 mg/dL *HI* (11/27/22 2:34 AM) 21 mg/dL (11/26/22 7:47 AM) 19 mg/dL (11/25/22 7:58 AM) Ca [8.4-10.2 mg/dL] 8.9 mg/dL (11/27/22 2:34 AM) 10.1 mg/dL (11/26/22 7:47 AM) 10.1 mg/dL (11/25/22 7:58 AM) Cl- [98-107 mmol/L] 101 mmol/L (11/27/22 2:34 AM) 107 mmol/L (11/26/22 7:47 AM) 106 mmol/L (11/25/22 7:58 AM) HCO3 [22-29 mmol/L] 26 mmol/L (11/27/22 2:34 AM) 24 mmol/L (11/26/22 7:47 AM) 23 mmol/L (11/25/22 7:58 AM) Cret [0.70-1.30 mg/dL] 0.98 mg/dL (11/27/22 2:34 AM) 0.79 mg/dL (11/26/22 7:47 AM) 0.92 mg/dL (11/25/22 7:58 AM) ESR [0-25 mm/hr] 14 mm/hr (11/26/22 7:47 AM) Glu [74-109 mg/dL] 138 mg/dL 10 *HI* (11/27/22 2:34 AM) 143 mg/dL 11 *HI* (11/26/22 7:47 AM) 245 mg/dL 12 *HI* (11/25/22 7:58 AM) Gluc Meter [74-109 mg/dL] 176 mg/dL *HI* (11/27/22 12:26 PM) 117 mg/dL *HI* (11/27/22 7:29 AM) 211 mg/dL *HI* (11/26/22 9:26 PM) Hct [39-48 %] 36.3 % *LOW* (11/27/22 2:34 AM) 37.9 % *LOW* (11/26/22 7:47 AM) 39.2 % (11/25/22 7:58 AM) Hgb [13.0-17.0 g/dL] 12.1 g/dL *LOW* (11/27/22 2:34 AM) 12.6 g/dL *LOW* (11/26/22 7:47 AM) 13.5 g/dL (11/25/22 7:58 AM) K [3.5-5.1 mmol/L] 4.2 mmol/L 13 (11/27/22 2:34 AM) 4.2 mmol/L (11/26/22 7:47 AM) 4.3 mmol/L 14 (11/25/22 7:58 AM) MCH [28-33 pg] 28.9 pg (11/27/22 2:34 AM) 28.9 pg (11/26/22 7:47 AM) 30.2 pg (11/25/22 7:58 AM) MCHC [32-36 g/dL] 33.3 g/dL (11/27/22 2:34 AM) 33.2 g/dL (11/26/22 7:47 AM) 34.4 g/dL (11/25/22 7:58 AM) MCV [81-96 fL] 86.8 fL (11/27/22:34 AM) 86.9 fL (11/26/22 7:47 AM) 87.7 fL (11/25/22 7:58 AM) Mg [1.6-2.6 mg/dL] 1.9 mg/dL (11/26/22 7:47 AM) Na [136-145 mmol/L] 138 mmol/L (11/27/22 2:34 AM) 141 mmol/L (11/26/22 7:47 AM) 143 mmol/L (11/25/22 7:58 AM) PO4 [2.5-4.5 mg/dL] 4.6 mg/dL *HI* (11/26/22 7:47 AM) Plts [150-350 K/uL] 218 K/uL (11/27/22 2:34 AM) 237 K/uL (11/26/22 7:47 AM) 232 K/uL (11/25/22 7:58 AM) RBC [4.40-5.60 M/uL] 4.18 M/uL *LOW* (11/27/22 2:34 AM) 4.36 M/uL *LOW* (11/26/22 7:47 AM) 4.47 M/uL (11/25/22 7:58 AM) WBC [4.0-10.4 K/uL] 5.19 K/uL (11/27/22 2:34 AM) 7.10 K/uL (11/26/22 7:47 AM) 4.30 K/uL (11/25/22 7:58 AM) 1Result Comment: Performed at: [address] [place] [id number] 2Result Comment: Performed at: [address] [place] [phone] 3Result Comment: Performed at: [address] [place] [phone] 4Result Comment: The clinical d-dimer cut-off value of <0.5 ug/mL FEU has been established by [facility] for the exclusion of pulmonary embolism and/or deep venous thrombosis in outpatients with low pre-test probability. 5Result Comment: CHECKED 6Result Comment: cTnT >= 0.030 ng/ml: myocardial necrosis present. This may be due to acute myocardial ischemia (AMI) or other myocardial injury. cTnT < 0.010 ng/ml: 99th percentile upper reference limit for ostensibly healthy adult referencepopulation (male and female). 7Result Comment: cTnT >= 0.030 ng/ml: myocardial necrosis present. This may be due to acute myocardial ischemia (AMI) or other myocardial injury. cTnT < 0.010 ng/ml: 99th percentile upper reference limit for ostensibly healthy adult referencepopulation (male and female). 8Result Comment: Lab orders combined with other orders received on the same specimen. 9Result Comment: Lab orders combined with other orders received on the same specimen. 10Result Comment: ADA recommendation for FASTING Serum/Plasma Glucose: Normal: 70-100 mg/dL Prediabetes: 100-125 mg/dL Diabetes: 126 mg/dL or higher 11Result Comment: ADA recommendation for FASTING Serum/Plasma Glucose: Normal: 70-100 mg/dL Prediabetes: 100-125 mg/dL Diabetes: 126 mg/dL or higher 12Result Comment: ADA recommendation for FASTING Serum/Plasma Glucose: Normal: 70-100 mg/dL Prediabetes: 100-125 mg/dL Diabetes: 126 mg/dL or higher 13Result Comment: HEMOLYZED SPECIMEN 14Result Comment: HEMOLYZED SPECIMEN Orders for Microbiology Reports Name Date Respiratory Pathogen Panel, by PCR (RVP) 11/25/22 Microbiology Reports TEST:Respiratory Virus Panel, by PCR STATUS:Auth (Verified) BODY SITE: SOURCE:Nasal/Pharyngeal COLLECTED DATE/TIME:11/25/22 6:10 PM Multiplex PCR Negative for: Severe Acute Respiratory Syndrome Coronavirus (SARS-CoV-2/COVID-19), Influenza A and B, Adenovirus, Bordetella pertussis, Bordetella parapertussis, Chlamydophila pneumoniae, Coronavirus (229E,HKU1,NL63,OC43), Human metapneumovirus, Mycoplasma pneumoniae, Parainfluenza Types 1,2,3, and 4, Respiratory syncytial virus, and Rhinovirus/Enterovirus. Radiology Reports * Exam Date Time Procedure Performing Provider Status 11/26/22 4:21 PM Echo TransTHORacic TTE Complete Marga Davis; Final Notes: (Echo TransTHORacic TTE Complete) Reason For Exam: pleuritic chest pain, hypoxia Echo TransTHORacic TTE Complete Report Signatures Finalized by Mj Grimes MD on 11/26/2022 05:01 PM [place] Act 112: No-No further action needed Summary 1. Normal left ventricular size and systolic function. 2. Estimated ejection fraction 60-65%. 3. No regional wall motion abnormalities. 4. No left ventricular hypertrophy. 5. No significant valvular abnormalities. 6. Compared to previous study from 01/10/22 , there is no significant change. Patient Info Name: DAVID BURRIS Age: 42 years : 1980 Gender: Male Ht: 188 cm Wt: 134 kg BSA: 2.69 m2 HR: 63 bpm BP: 119 / 59 mmHg Heart Rhythm: Sinus Rhythm Technical Quality: Technically difficult study Exam Date: 11/26/2022 2:43 PM Exam Location: ED Observation 1380 Patient Status: Inpatient Staff Ordering Physician: Linda He Air Brake Worker: Marga Garcia RDCS Attending Physician: Sergio Hearn Study Info CPT 35597 - Indications R079 - Chest pain, unspecified J9691 - Respiratory failure, unspecified with hypoxia Procedure(s) * A complete two-dimensional, color flow and Doppler transthoracic echocardiogram was performed. Exam Type: Cardiac Basic Left Atrium Normal left atrial size. Right Atrium Right atrial dilation. Pericardium/Pleural No significant pericardial effusion. Inferior Vena Cava Normal IVC size and inspiratory collapse. Aorta Normal aortic root. Left Ventricular Outflow Tract Name Value Normal LVOT Doppler LVOT Peak Velocity 0.79 m/s LVOT Peak Gradient 2 mmHg LVOT Mean Gradient 1 mmHg LVOT VTI 18.83 cm LVOT VTI/AV VTI Ratio 1.02 Pulmonic Valve Name Value Normal RVOT Doppler RVOT Peak Velocity 0.56 m/s RVOT Peak Gradient 1 mmHg PV Doppler PV Peak Gradient 2 mmHg PV Mean Gradient 1 mmHg Mitral Valve Name Value Normal MV Doppler MV Decel [place] 371.63 cm/s2 MV PHT 58 ms MV Diastolic Function MV E Peak Velocity 0.74 m/s <=0.50 MV A Peak Velocity 0.56 m/s MV E/A 1.32 <=0.80 MV Decel Time 199 ms MV Annular TDI MV Septal s' Velocity 9.70 cm/s MV Septal e' Velocity 8.80 cm/s >=7.00 MV E/e' (Septal) 8.4 <=8.0 MV Lateral s' Velocity 7.66 cm/s MV Lateral e' Velocity 11.65 cm/s >=10.00 MV E/e' (Lateral) 6.34 <=8.00 MV e' Average 10.23 MV E/e' (Average) 7.37 <=14.00 Tricuspid Valve Name Value Normal TV Regurgitation Doppler TR Peak Velocity 2.08 m/s <=2.80 TR Peak Gradient 17 mmHg Estimated PAP/RSVP RA Pressure 3 mmHg <=5 PA Systolic Pressure 20 mmHg <40 TV Diastolic Function TV E Peak Velocity 0.45 m/s TV A Peak Velocity 0.26 m/s TV E/A 1.74 0.80-2.00 TV Decel Time 244 ms >=120 TV Annular TDI TV Lateral Yasmin s' Velocity 11.7 cm/s 9.5-18.7 TV Lateral Yasmin e' Velocity 9.7 cm/s <7.8 TV E/e' 4.64 2.00-6.00 Aorta Name Value Normal Ascending Aorta Sinus of Valsalva Diameter 3.8 cm 3.1-3.7 Sinus of Valsalva Index 1.42 cm/m2 1.50-1.90 Venous Name Value Normal IVC/SVC IVC Diameter (Insp 2D) 0.4 cm IVC Diameter (Exp 2D) 1.2 cm <=2.1 IVC Diameter Percent Change (2D) 64 % >=50 Aortic Valve Name Value Normal AV Doppler AV Peak Velocity 0.90 m/s <2.00 AV Peak Gradient 3 mmHg AV Mean Gradient 2 mmHg <20 AV VTI 18.50 cm AV V1/V2 Ratio 0.88 AV Accel Time 91 ms Ventricles Name Value Normal LV Dimensions 2D/MM IVS Diastolic Thickness (2D) 0.9 cm 0.6-1.0 LVID Diastole (2D) 5.3 cm 3.6-5.6 LVIW Diastolic Thickness (2D) 0.7 cm 0.6-1.0 LVID Systole (2D) 3.5 cm 2.5-4.0 LV Mass (2D Cubed) 149.53 g 88.00-224.00 LV Mass Index (2D Cubed) 0.01 g/cm2 0.00-0.01 Relative Wall Thickness (2D) 0.26 LV Fractional Shortening/Ejection Fraction 2D/MM LV Fractional Shortening (2D) 34 % 25-43 RV Dimensions 2D/MM RV Basal Diastolic Dimension 5.9 cm 2.5-4.1 TAPSE 2.2 cm >=1.7 Atria Name Value Normal LA Dimensions LA Area (4C) 18.3 cm2 LA Length (4C) 6.2 cm LA Area (2C) 22.6 cm2 LA Length (2C) 6.3 cm LA Volume (4C A-L) 46.40 ml LA Volume (2C A-L) 69.02 ml LA Volume (BP A-L) 57 ml 18-58 LA Volume Index (BP A-L) 21.24 ml/m2 <=34.00 RA Dimensions RA Area (4C) 25.3 cm2 <=18.0 Left Ventricle Normal left ventricular size and systolic function. Estimated ejection fraction 60-65%. No regional wall motion abnormalities. No left ventricular hypertrophy. Right Ventricle Normal right ventricular size and function. Aortic Valve Unremarkable aortic valve. Pulmonic Valve Unremarkable pulmonic valve. Mitral Valve Unremarkable mitral valve. Tricuspid Valve Unremarkable tricuspid valve. Insufficient TR for estimation of pulmonary artery systolic pressure. Final Signed by:MD Grimes Eric Signed (Electronic Signature):11/26/2022 2:43 p * Exam Date Time Procedure Performing Provider Status 11/25/22 3:[address] Chest - PE Pam Mullen; Final Notes: (CT Chest - PE) Reason For Exam: hx of PE, factor V leidien - c/f PE CT Chest - PE EXAMINATION: CT CHEST ANGIOGRAM WITH CONTRAST - PULMONARY ARTERIES (CTPE) CLINICAL HISTORY: hx of PE, factor V Leiden - c/f PE TECHNIQUE: Helical CT scan through the chest after intravenous contrast administration with contrast timing for evaluation of the pulmonary arteries. Reconstructions in multiple planes. Postprocessing: Maximum intensity projection (MIP). CONTRAST: Contrast Type (IV): Omnipaque 350 Contrast Volume (IV) in ml: 65.00 DOSE: Total Reported Dose Length Product (DLP) = 298.42 mGy.cm COMPARISON: CT chest 04/29/2022 FINDINGS: This study is of diagnostic quality. Pulmonary vessels: The central, lobar and segmental arteries are free of embolus. The sub-segmentalarteries are variably seen but contain no filling defect to suggest embolus. Pleura and Lungs: Minimal left lingular atelectasis. No pleural effusion. No pneumothorax. No suspicious pulmonary lesion. Central airways: No endobronchial lesion. Lymph nodes: No lymphadenopathy Thyroid and Mediastinum: Multinodular thyroid with left 8 mm thyroid nodule, unchanged. Small hiatal hernia. No pneumomediastinum. Heart and Great vessels: Stable cardiomegaly. No pericardial effusion. Unchanged AICD/pacer with leads in the right atrium and right ventricle. Unchanged prominent main pulmonary artery, measuring 34mm in diameter. Upper abdomen: Cholecystectomy. Chest wall: Bilateral gynecomastia. No acute osseous abnormality. IMPRESSION: No evidence of pulmonary embolism. Dr. Isaiah De Leon is the dictating resident. Finalized reports status indicates that the attendinghas reviewed the images and report, and agrees with the interpretation. Preliminary report status should be regarded as NOT interpreted by the attending radiologist. [place] Act 112: This study does not meet the requirements of [place] Act 112. Workstation ID: [id number] Final Dictated by:MD De Leon Anthony Robert Dictated DT/TM:11/25/2022 4:09 Resident:MD De Leon Anthony Robert Signed by:MD Morgan Seth Millard Signed (Electronic Signature):11/25/2022 4:08 p * Exam Date Time Procedure Performing Provider Status 11/25/22 8:25 AM XR Chest 1 View Judah Mishra; Aissatou trotter Notes: (XR Chest 1 View) Reason For Exam: Chest pain XR Chest 1 View EXAMINATION: XR Chest 1 View CLINICAL HISTORY: Chest pain COMPARISON: Prior studies, most recently chest radiograph 10/12/2022. FINDINGS: Upright PA view of the chest. Left subclavian approach pacemaker with lead tips in the right atriumand right ventricle. Normal cardiopericardial silhouette. Normal pulmonary vasculature. Hypoinflation. No focal parenchymal opacity. No pleural effusion. No pneumothorax. No acute osseous abnormality. IMPRESSION: Hypoinflation without other acute finding. Workstation ID: [id number] Final Dictated by:DO Walters Matthew D Dictated DT/TM:11/25/2022 8:47 Signed by:DO Walters Matthew D Signed (Electronic Signature):11/25/2022 8:46 a Vital Signs Most recent to oldest [Reference Range]: 1 2 3 Height 188 cm (11/25/22 7:31 AM) Patient Weight 134.5 kg (11/26/22 5:11 AM) 144.8 kg (11/25/22 7:31 AM) Body Mass Index 40.97 kg/m2 (11/25/22 7:31 AM) Temperature [36.5-37.9 DegC] 36.5 DegC (11/27/22 4:46 PM) 36.8 DegC (11/27/22 7:35 AM) 36.8 DegC (11/27/22 12:12 AM) Heart Rate 60 bpm (11/27/22 4:46 PM) 60 bpm (11/27/22 9:52 AM) 60 bpm (11/27/22 9:03 AM) Respiratory Rate 10 br/min (11/27/22 4:46 PM) 11 br/min (11/27/22 9:03 AM) 10 br/min (11/27/22 9:00 AM) Blood Pressure 123/80mmHg (11/27/22 4:46 PM) 132/97mmHg (11/27/22 1:00 PM) 119/91mmHg (11/27/22 11:15 AM) Mean Blood Pressure 93 mmHg (11/27/22 4:46 PM) 106 mmHg (11/27/22 1:00 PM) 102 mmHg (11/27/22 11:15 AM) Cuff Pulse Pressure 43 mmHg (11/27/22 4:46 PM) 35 mmHg (11/27/22 1:00 PM) 28 mmHg (11/27/22 11:15 AM) BP Location # 1 Left Arm (11/27/22 11:15 AM) Left Arm (11/27/22 7:35 AM) Left Arm (11/27/22 4:00 AM) Social History Social History Type Response Smoking Status Never smoked cigaret jessica Sex Male Radiology * Contributor_system, [id number]: VERIFY, PERFORM Event Display: EKG Authored Date: [id number] Please click on link to see image. * Contributor_system, [email or web address]: VERIFY, PERFORM Event Display: EKG Authored Date: [id number] Please click on link to see image. * Contributor_system, [email or web address]: VERIFY, PERFORM Event Display: EKG Authored Date: [id number] Please click on link to see image. History and physical note * DO Monique Meghan Anne: PERFORM, MODIFY Event Display: H&P Authored Date: [id number] HISTORY AND PHYSICAL Name: DAVID BURRIS Jr. Patient Number: [id number] : 1980 Date of Service: 11/25/2022 [facility] Day/Procedure: No procedures found Chief Complaint: _ SOB History of Present Illness: _ This is a 42 year old male with past medical history of Factor V Leiden on Xarelto, HLD, IDDM2, SVT s/p pacemaker who presents to [facility] ER with chief complaint of shortness of breath. Admits this started several days ago. Describes as inability to catch his breath. Admits exacerbating factors to include exertion. Admits alleviating factors to include nothing.Reports associated signs and symptoms to include pleuritic chest pain. Review Of Systems: _ A complete 14 point review of systems was performed with pertinent positives and negatives as listed above. All other systems are negative. Past Medical History: _ Factor V Leiden on Xarelto, HLD, IDDM2, SVT s/p pacemaker Procedure History Procedure Procedure Date Comments REMOVAL OF GALLBLADDER 2000 APPENDECTOMY 1993 Surgical History: _ pacemaker Family History: _ noncontributory Social History: _ denies tobacco, alcohol or drug abuse Allergies and Sensitivities: topiramate(Urticaria) cloZAPine(Unknown) gadopentetate dimeglumine(Urticaria) gadopentetate dimeglumine(Itching) IVP dye(Anaphylaxis) IVP dye(Dyspnea) penicillins(Wheezing) phenytoin(Unknown) iodinated radiocontrast dyes(Anaphylaxis) ketorolac(Anaphylaxis) ketorolac(Rash/Dermatitis) Adhesive bandage(Rash) iodine(Anaphylaxis) ibuprofen(Anaphylaxis) ibuprofen(Dyspnea) ibuprofen(Wheezing) Ativan(low heart rate) seafood Magnevist(Itchiness with no hives or rash) Depakote Novocain NSAIDS (nonsteroidal anti-inflammatory agents) Current Home Meds: (Last Updated 11/25 11:13) acetaminophen (acetaminophen 500 mg oral tablet) 500 mg PO q6h PRN: as needed for pain amitriptyline (amitriptyline 25 mg oral tablet) atorvastatin 40 mg PO Daily diclofenac topical (Voltaren 1% topical gel) 1 appl topical qid PRN: Pain empagliflozin (empagliflozin 25 mg oral tablet) 25 mg PO qAM fentaNYL (fentaNYL 25 mcg/hr transdermal film, extended release) 1 patch topical q72h fluticasone nasal (Flonase 50 mcg/inh nasal spray) 1 spray each nostril Daily insulin aspart (NovoLOG FlexPen 100 units/mL injectable solution) sliding scale with meals insulin glargine (Lantus Solostar Pen 100 units/mL subcutaneous solution) 36 unit subQ qhs lidocaine topical (lidocaine 5% patch) 1 patch topical Daily PRN: pain back / chest magnesium oxide (magnesium oxide 400 mg (241.3 mg elemental magnesium) oral tablet) 400 mg PO Daily metformin (metformin 500 mg oral tablet) 1,000 mg PO bid metoprolol (Lopressor 50 mg oral tablet) 25 mg PO bid ondansetron (Zofran ODT 4 mg oral tablet, disintegrating) 4 mg PO tid PRN: as needed for nausea/vomiting pantoprazole (Protonix) 40 mg PO bid pregabalin (Lyrica 200 mg oral capsule) 200 mg PO bid rivaroxaban (rivaroxaban 20 mg oral tablet) 20 mg PO Daily Vitals: Last Updated 11/25/22 18:04 Weights: Last Updated 11/25/22 07:31 Date Temp Pulse BP RR SpO2 FIO2 Date Wt(kg) Wt(lb) 11/25 18:04 76 139/81 18 96 11/25 07:31 144.8 319 11/25 16:00 66 146/86 18 92 11/25 07:31 144.8 319 11/25 11:16 67 134/69 20 97 RA 11/25 07:31 36.9 74 140/89 24 100 24 Hr Tmax: 36.9 at 11/25 07:31 Initial Wt: 11/25 144.8 kg 319 lb Physical Exam: General: _ 42 year old male who is awake, alert and oriented to person, place and time HEENT: _ moist mucous membranes Neck: _ soft, supple, trachea midline Cardiac: _ regular rate and rhythm, normal S1, S2, no murmurs, clicks, gallops or rubs noted Lungs: _ clear to auscultation bilaterally Abdomen: _ soft, non-tender, non-distended, normal bowel sounds in all four quadrants Rectal: _ deferred : _ deferred Back: _ tissue texture changes noted Extremities: _ free range of motion in all four extremities Neuro: _ no sensory or motor deficits appreciated on limited neurologic examination Skin: _ warm, clean, dry, laceration with sutures beneath right eye with surrounding ecchymosis Most Recent 24 Hour CBC/BMP Results CBC: on 11/25/2022 07:58 BMP: on 11/25/2022 07:58 13.5 143 106 19 4.3 232 245 39.2 4.3 23 0.92 Abs Neut = 2.2 Ca = 10.1 Most Recent 24 Hour Labs: 11/25/22 1810 Troponin T <0.010 Troponin T Delta See Flowsheet 11/25/22 0846 Estimated CrCl 160.31 11/25/22 0758 MCH 30.2 MCHC 34.4 MCV 87.7 RBC 4.47 MPV 9.8 Immature Gran% 0.2 Neut% 51.7 Lymph% 30.2 [place]% 7.9 Baso% 0.9 Eos% 9.1 Immat Gran, Abs 0.01 Lymph, Abs 1.30 Flat[place], Abs 0.34 Baso, Abs 0.04 Eos, Abs 0.39 Type of Diff: See Flowsheet RDW 13.7 BNP, NT-Pro <36 Anion Gap 14 eGFR CKD-EPI >90 D-dimer (q) 1.03 H 11/25/22 0749 Request of Physician See Flowsheet Action Taken See Flowsheet Studies: Pending or Completed in the Last 24 Hours XR Chest [address] Chest - PE Completed EKG (ED) Completed ASSESSMENT: _ 42 year old male with past medical history of Factor V Leiden on Xarelto, HLD, IDDM2,SVT s/p pacemaker presents with ambulatory oxygen desaturation PLAN: _ Oxygen desaturation 1. _ Monitor pulse oximetry. Provide supplemental O2 as needed and titrate to maintain saturations.Warrants oxygen desaturation study. Consider echocardiogram to interrogate for pulmonary hypertension. Factor V Leiden 2. _ Xarelto IDDM2 3. _ Continue long acting insulin. Place on ISS with [facility] ACHS. 4. Code Status: _ full Electronic Signature on File Electronically Reviewed/Signed by: Liliane Monique DO Author Signature Dt/Tm:11/25/2022 08:28 PM Division of Internal Medicine - Hospitalist [facility] Cardiology Consult note * DO Rollins Adam R: PERFORM, MODIFY, MODIFY, MODIFY, MODIFY, MODIFY, MODIFY MD Janice, Alecia A: MODIFY, MODIFY MD Janice, Alecia A: MODIFY Event Display: Cardiology Consult Authored Date: [id number] CARDIOLOGY INPATIENT CONSULT Name: DAVID BURRIS Jr. Patient Number: [id number] : 1980 Date of Admission: 11/25/2022 Date of Service: 11/27/2022 REQUESTING PHYSICIAN'S NAME: MD Hearn Jagdesh REASON FOR CONSULTATION: _ chest pain, concern for ECG changes ASSESSMENT: _ David Burris is a 42-year-old male with Factor V Leiden on rivaroxaban, SVT, bradycardia s/p pacemaker, type 2 diabetes mellitus, dyslipidemia who presented with non-cardiac chest pain without myocardial injury. On ECG, J-point elevation in inferior leads is early repolarization abn ormality and not acute ischemic change or STEMI. RECOMMENDATIONS: _ 1 ) _ Orthostatic VS. 2 ) _ Consider exertional SpO2 measurement. 3 ) _ NM Myocardial SPECT could be ordered upon discharge to be completed on an outpatient basis for further evaluation of his chest pain. Thank you for allowing us to participate in the care of this patient. Feel free to reach out to thecardiovascular disease fellow if you have any further questions. Patient was staffed with attendingphysician and recommendations were communicated to the primary team. Cardiology will sign off. Carlos A Rollins DO, PGY-4 Cardiovascular Disease Fellow Attending: Patient seen and examined, data reviewed and findings and management discussed with Dr. Rollins. Agree with assessment and recommendations. Although he has multiple seemingly cardiac complaints (sharp chest pain, dyspnea) and had multiple ECGs, some with subtle non-diagnostic ST elevation(early repolarization?) in the setting of cardiac risk factors, 4 troponins are negative. As he hadsimilar presentations in the past believe a stress test (as an outpatient) would be helpful. We believe this could be done on an outpatient basis (preferably a nuclear scan with pharmacologic stress). UL HPI: _ David Burris is a 42-year-old male with Factor V Leiden on rivaroxaban, paroxysmal SVT, bradycardia s/p pacemaker, type 2 diabetes mellitus, dyslipidemia, fibromyalgia, history of pericarditis who presented to [facility] on 11/25 due to chest pain, shortness of breath that started suddenly a few d ays ago and is sharp in character. CT PE was negative for pulmonary embolism, CXR unrevealing. Serial troponin level < .01. He was admitted to Internal Medicine for further evaluation. Transthoracic echocardiogram was normal. Chest pain was thought to be non-cardiac in etiology. Previously, chest pain was thought to be psycho-somatic in etiology. He has a history of opioid usage for fibromyalgia. Early this morning, he developed onset of severe chest pain serial troponin were < .01 x2. Serial ECG were normal sinus rhythm with early repolarization leading to J point elevation and concaveST segment elevation in inferior leads. VSS. Cardiology was consulted due to chest pain and abnormal ECG. Upon evaluation this morning, he reports that his chest pain is improved but that he feels unwell, short of breath, no palpitations, lightheadedness. He reports that he had low SpO2 during workwith OT yesterday however SpO2 was documented as 92-95% with activity. PAST MEDICAL HISTORY: Problems: Gastropathy Eosinophilic esophagitis Factor V Leiden mutation Paroxysmal supraventricular tachycardia Mesenteric panniculitis Pericarditis GERD (gastroesophageal reflux disease) Hypercholesterolemia Fibromyalgia Type 2 diabetes mellitus Hospital Day: 2 Surgical Hospital Day/Procedure: No procedures found MEDICATIONS: Active Inpt Meds: Technetium Tc99m Albumin Aggregated (Draximage MAA) 6 mCi IV Push Pre Event acetaminophen (Tylenol) 1,000 mg PO q6h atorvastatin 40 mg PO Daily docusate (Colace) 100 mg PO bid fentaNYL patch off & disposal 1 patch_OFF transdermal q72h fentaNYL (fentaNYL patch.) 25 mcg/hr transdermal q72h insulin glargine (Lantus) 36 unit subQ qhs insulin lispro (HumaLOG Sliding Scale Moderate) subQ ac and hs lansoprazole 30 mg PO bid metoprolol (Lopressor) 25 mg PO bid multivitamin 1 tab PO Daily pregabalin (Lyrica) 200 mg PO bid rivaroxaban 20 mg PO Daily sodium chloride flush (sodium chloride flush 0.9%) 10 mL IV Push Pre Event Active PRN Meds: lidocaine topical (LMX 4 topical cream) 1 appl topical Pre Event morphine 2 mg IV Push q4h nitroglycerin 0.4 mg SL q5min ondansetron (Zofran) 4 mg IV Push q6h oxyCODONE 10 mg PO q4h oxyCODONE 5 mg PO q4h polyethylene glycol 3350 (MiraLax) 17 g PO Daily Active IV Meds: None Allergies and Sensitivities: topiramate(Urticaria) cloZAPine(Unknown) gadopentetate dimeglumine(Urticaria) gadopentetate dimeglumine(Itching) IVP dye(Anaphylaxis) IVP dye(Dyspnea) penicillins(Wheezing) phenytoin(Unknown) iodinated radiocontrast dyes(Anaphylaxis) ketorolac(Anaphylaxis) ketorolac(Rash/Dermatitis) Adhesive bandage(Rash) iodine(Anaphylaxis) ibuprofen(Anaphylaxis) ibuprofen(Dyspnea) ibuprofen(Wheezing) Ativan(low heart rate) seafood Magnevist(Itchiness with no hives or rash) Depakote Novocain NSAIDS (nonsteroidal anti-inflammatory agents) SOCIAL HISTORY: _ No tobacco, alcohol or drug use. FAMILY HISTORY: _ Father had coronary artery disease. ROS: A 14-point ROS was evaluated and negative unless stated in the HPI above. VITAL SIGNS AND EXAM: Vitals Temp Pulse BP RR SpO2 FIO2 Date Wt(kg) Wt(lb) 11/27 04:00 ---- 60 135/94 18 98 11/26 134.5 296 11/27 00:24 ---- --- ----- 9 --- RA 11/25 144.8 319 11/27 00:12 36.8 60 123/51 16 96 RA 11/25 144.8 319 11/26 23:45 ---- 68 ----- 22 96 --- 11/26 23:44 ---- 66 ----- 16 96 --- 24 Hr Tmax: 36.8 at 11/27 00:12 36 Hr Tmax: 36.8 at 11/27 00:12 Vital Signs are the last 5 in the past 48 hours. Weights display the last 5 within 7 days. Initial Wt: 11/25 kg 319 lb Recorded Input Output Balance 11/26 7a-3p 705 0 705 3p-11p 252 0 252 11p-7a 253 300 -47 24 Total 1210 300 910 11/25 7a-3p 5 0 5 3p-11p 3 0 3 11p-7a 3 0 3 24 Total 11 0 11 Refer to the I-VIEW - I and O tab for details Physical Exam: General:NAD, alert and cooperative. ENT:MMM. Oral cavity non-erythematous. No JVD. CV:Regular, + S1 S2 with no murmur, gallops, rubs. Pulses 2+ and symmetrical in upper and lower extremities. Capillary refill < 2 seconds. Lungs:CTA B/L with no wheezes, rales, rhonchi. No increased WOB. On RA. Abdomen:Soft, NTND appearing. Extremities:Well developed muscle mass, tone. Warm, well perfused. No edema in upper or lower extremities. Neuro:No facial asymmetry at rest. Spontaneously moving all extremities. AOx3. Skin:Warm, dry, intact, with no noted rash. LABS: Most Recent Lab Results over the last 24 Hours: CBC: on 11/27/2022 02:34 BMP: on 11/27/2022 02:34 12.1 138 101 25 5.2 218 138 36.3 4.2 26 0.98 Ca = 8.9 eGFR CKD-EPI: >90 Most Recent 24hr Labs as of 11/27 0405 Troponin T <0.010 Troponin T Delt See Flowsheet 11/27 0326 Estimated CrCl 150.49 11/27 0234 MCH 28.9 MCHC 33.3 MCV 86.8 RBC 4.18 L MPV 9.6 RDW 13.6 Anion Gap 11 eGFR CKD-EPI >90 11/26 215 Blood Glucose 211 H 11/266 Gluc Meter 211 H 11/26 2124 Blood Glucose R See Flowsheet 11/26 0748 Request of Phys See Flowsheet Action Taken See Flowsheet 11/26 0747 Mg 1.9 PO4 4.6 H ESR 14 CReacProt 0.93 H OTHER LABS: RELEVANT IMAGING: RELEVANT CULTURES: Electronic Signature on File Electronically Reviewed/Signed by: Carlos A Rollins DO Author Signature Dt/Tm:11/27/2022 10:55 AM Resident [facility] [place] Electronically Reviewed/Signed by: Alecia Camacho MD Cosigner Signature Dt/Tm: 11/27/2022 11:13AM [facility] [place] [facility], [address], [place] [address] ARS .D/C Summary * QUE He Dana E: PERFORM MD Hearn Jagdesh: MODIFY Event Display: .D/C Summary Authored Date: [id number] [facility] For medical concerns, call: . Address: [address] [place] [address] (MOBILE) :1980 . Date of Admission:11/25/2022 Date of Discharge:11/27/2022 Physician:MD Hearn Jagdesh Service:Internal Medicine Discharge Disposition: Principal Diagnosis: Atypical chest pain Other Diagnoses: History of factor V Leiden mutation Oxygen desaturation Major Tests and Procedures: (11/25/2022 08:25 EDT XR Chest 1 View) IMPRESSION: Hypoinflation without other acute finding. [1] (11/25/2022 15:[address] Chest - PE) IMPRESSION: No evidence of pulmonary embolism. [2] (11/26/2022 16:21 EDT Echo TransTHORacic TTE Complete) Summary 1. Normal left ventricular size and systolic function. 2. Estimated ejection fraction 60-65%. 3. No regional wall motion abnormalities. 4. No left ventricular hypertrophy. 5. No significant valvular abnormalities. 6. Compared to previous study from 01/10/22 , there is no significant change. [3] [1] Hospital Course: Pt is a 42 y/o M with PMHx of Factor V Leiden (Xarelto, previously Coumadin), HLD, DMII, SVT s/p pacemaker who presented with complaints of chest pain and shortness of breath. In the ED his labs werenotable for glu 245, d-dimer 1.03. A CXR was completed that revealed hypoinflation without acute abn ormalities.Given hishistory of prior PE, a CTPE was completed that was negative; also withoutpneumothorax, pleural effusions or lesions. He was afebrile and hemodynamically stable. He was reported [id number] thus prompting admission for further work-up. Chest Pain, Unspecified Over the course of his admission, multiple EKGS were completed without acute ischemia. Troponins were negative. BNP was within normal limits. CTPE and CXR were completed as per above. An ECHOwas also completed that was negative for pericardial effusion, no WMA and EF 60-65%. An RVP was also negative. His pain was suspected to be non-cardiac in nature, with an extensive outside recordreview reporting multiple hospitalizations at various health systems with similar work-ups. Despitethis, he continued to request escalating opioid therapy and ongoing work-up. Cardiology was also consulted, who did not find an etiology for his reported symptoms. They recommended an outpatient NM SPECT with stress to complete his work-up. This order was placed prior to discharge. Hypoxia - Ruled Out Initially, it was reported he had desaturation below 90% with activity on room air. The patient was noted by various staff to be breath holding. While talking in full sentences to primary team, his saturations were above 95% on room air. While working with therapy, he had no noted desaturations. He was discharged without oxygen needs. Throughout his stay, he made multiple concerning comments to providers and bedside staff (ex. He will throw himself on the ground if he does not receive medications to address his pain) and often displayed behaviors that were incongruent to his stated goal of returning to home. We reviewed his work-up multiple times throughout his admission and discussed concerns regarding the side effects ofongoing opioid therapy without identifying an organic cause of his pain. He was encouraged to follow-up with his outpatient opioid prescriber, with whom he has a pain contract. Prior to discharge,he was displaying an inability to ambulate at bedside with RN despite being able to ambulate with OT the day prior.PT was consulted, who attempted to complete an evaluation which was limited by hisrefusal to participate. Note states "Not receptive to PT, argumentative, poor problem solving, use of explicative language, with poor effort on all aspects of PT evaluation. Noted to ambulate withoutissue onevalwith OT on 11/26, however, unsafe due to multiple behaviors noted oneval(iestanding on one leg, inappropriate language towards this PT, not following commands). 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 Anticipate underlying behavioral/psychosocial etiology of patient's functional presentation. Anticipate no further skilled PT needs and will d/c orders." At this time, there is noongoing active medical conditions or concerns that warrantcontinued hospitalization. Hewill be discharged to home with recommendations for outpatient follow-up with his specialists. Exam on Discharge: Vitals & Measurements: T:36.8C TMIN:36.4C TMAX:36.8C HR:60(Monitored) RR:11 BP:132/97 SpO2:95% Oxygen Flow:1(L/Min) Oxygen Therapy:Room air BMI:40.97 kg/m2 General:Alert. Inno acute distress. HEENT:Head normocephalic. Laceration with sutures under R eye. Sclera anicteric. MMM. Neck:Unable to assess given positioning. Cardiac:RRR. No murmurs, rubs or gallops. Lungs:CTAB. No accessory muscle use. Able to speak in full sentences without pressured speech. Abdomen:Normoactive bowel sounds. Soft, non-tender, non-distended. Rectal:Deferred :Voiding spontaneously. Back:Deferred Extremities:AVILA x4. 2+ radial and DP pulses. Neuro:AA+OX4. 3 PERRL. Skin:[place], warm, dry. Discharge Medications: 1.Pantoprazole (Protonix) 40 mg by [...] 20 mg (1 tab) by mouth once daily. 7.Magnesium oxide (magnesium oxide 400 mg (241.3 mg elemental magnesium) oral tablet) 400 mg (1 tab) by mouth once daily. 8.FentaNYL (fentaNYL 25 mcg/hr transdermal film, extended release) 1 patch topically every 72 hours. 9.Lidocaine topical (lidocaine 5% patch) 1 patch topically once daily, as needed for pain. back /chest. 10.Diclofenac topical (Voltaren 1% topical gel) 1 appl topically 4 times daily, as needed for Pain. 11.Fluticasone nasal (Flonase 50 mcg/inh nasal spray) 1 spray in each nostril once daily. 12.Acetaminophen (acetaminophen 500 mg oral tablet) 500 mg (1 tab) by mouth every 6 hours, as needed for pain. 13.Insulin aspart (NovoLOG FlexPen 100 units/mL injectable solution) See Instructions . sliding scale with meals. 14.Insulin glargine (Lantus Solostar Pen 100 units/mL subcutaneous solution) 36 unit subcutaneouslyat bedtime. 15.Amitriptyline (amitriptyline 25 mg oral tablet) . 16.Metoprolol (Lopressor 50 mg oral tablet) 25 mg (0.5 tab) by mouth 2 times daily. 17.Trolamine salicylate topical (Aspercreme 10% topical cream) 1 appl topically 4 times daily, as needed for Pain. 18.Thiamine (Vitamin B1 50 mg oral tablet) 50 mg (1 tab) by mouth once daily. 19.Multivitamin 1 tab by mouth once daily. Allergies and Sensitivities: iodinated radiocontrast dyes(Severe)Anaphylaxis iodine(Severe)Anaphylaxis Adhesive bandage (Mild)Rash Ativanlow heart rate Depakote IVP dyeDyspnea, Anaphylaxis MagnevistItchiness with no hives or rash NSAIDS (nonsteroidal anti-inflammatory agents) Novocain cloZAPineUnknown gadopentetate dimeglumineItching, Urticaria ibuprofenWheezing, Dyspnea, Anaphylaxis ketorolacRash/Dermatitis, Anaphylaxis penicillinsWheezing phenytoinUnknown seafood topiramateUrticaria Tests Pending: Extra Blue To obtain results pending at hospital discharge, call and ask for the following Physician:MD Hearn Jagdesh Follow-Up Tests and Studies After Discharge: NM SPECT with Stress Other Appointments: Follow Up withFollow up with primary care provider When:Within 5 to 7 days Why: Call your doctor to make an appointment Discharge Services: No Post-Acute Placement(s) Listed No Post-Acute Service(s) Listed Care Instructions: Follow-Up Appointments: Keep all your follow up appointments as already scheduled. Please call to schedule a follow-up with your primary care provider within 1 week of discharge. Please follow-up with your provider who is managing yourchronic opioid medications to discuss adjustment or titration concerns. An outpatient cardiacstress test has been ordered. You will be contacted to schedule. Medications: Please review your medications and ask your physician if you have any questions. Your medication list has been reviewed and reconciled upon discharge to ensure accuracy and continuity of care. You are provided with a list of all your current medications at this time. Please review closely and make note of any changes. Take all of your medications exactly as prescribed. Tell your primary care provider if you cannot afford your medications. Call your primary care provider if you are having any side effects or any other problems. Call your primary care provider before taking any over the counter medications or supplements, including herbals and vitamins, because some of these may interact with your current medications and/or make your symptoms worse. Activity: Resume your normal activities as tolerated. Always use fall precautions and resume activities slowly as you were just hospitalized and you may need continued recovery time. Physical activity is an important component of a healthy lifestyle.When going from lying down or sitting down to standing up, go slow to allow your body to adjust and pause if you feel lightheaded or dizzy. . Advance Directive:None I personally spent55 minutes in discharge planning. I personally seen and examined the patient independently and discussed patient's care with the housestaff. We reviewed the patient's history, medications and lab data. I agree with the assessment and plan as documented byAPP above. [1]Patient Discharge Instructions; QUE He Dana E 11/27/2022 13:22 EDT Electronic Signature on File CC: QUE Juárez [address] [facility] [id number] Electronically Reviewed/Signed by: QUE Juárez Author Signature Dt/Tm:11/27/2022 03:44 PM Division of Internal Medicine - Hospitalist Electronically Reviewed/Signed by: Sergio Hearn M.D. Cosigner Signature Dt/Tm: 11/27/2022 10:05 PM Division of Internal Medicine - Hospitalist [facility] Emergency department Summary note * MD Sharma Christopher: MODIFY, MODIFY, MODIFY, MODIFY, MODIFY, MODIFY, MODIFY, PERFORM MD Sharma Christopher: PERFORM MD Call Cherri D: MODIFY Event Display: ED Summary Authored Date: [id number] Basic Information Time Seen: MD Call Cherri D 11/25/2022 10:27 Chief Complaint Pt stated having intermittent chest pain for the past couple of days, previously had PE, stated chest pain which worsens with deep inspiration. Pt currently on xeralto, pt had pacemaker placed. History of Present Illness NITIN , DAVID [facility] a42 YearsoldMalewith possible history of factor V Leiden diseaseonXarelto daily,previous treated PE, eosinophilic esophagitis,GERD,hypercholesterolemia,who presents the emergency room due to3 days of shortness of breath that has beenassociate with dyspnea on exertion and 1 day of chest pain that isbegan yesterday. 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 He has not had any associated feveror chills with the symptoms, no cough, sore throat,or congestion. He states that thesesymptoms feelsimilar to previous PEsin the past that have been diagnosed. Pain is localized in the left chest,pleuritic in nature,and worsen with exertion, and remit with rest. He has been adherent to everydosage of his anticoagulation. His previous pacemaker placementforsymptoms of paroxysmal supraventricular tachycardia that was symptomatic. Patient hasa reported anaphylactic reaction to contrastdyefor which she has receivedantiallergy medicationspreviouslyand has been able to receive contrast dye. He reports nofurther history of tobacco use, he has lost 100 pounds of weight within the last year that has been planned. Review of Systems Constitutional: [no fever, no chills]. Skin: [no rash]. ENMT: [no congestion]. Respiratory: [+ shortness of breath, no cough]. Cardiovascular: [+ Chest pain, no palpitations, no swelling]. Gastrointestinal: [no nausea, no vomiting, no diarrhea, no constipation]. Genitourinary: [no dysuria]. Musculoskeletal: [no trauma]. Neurologic: [no headache, no dizziness,+ weakness]. Allergy/Immunologic: [allergies as per EMR]. Additional ROS info: Except as noted in the above Review of Systems and in the History of Present Illness all other systems have been reviewed and are negative or noncontributory. Physical Exam Vitals & Measurements T:36.9C HR:74(Monitored) RR:24 BP:140/89 SpO2:100% HT:188cm WT:144.800kg(Dosing) WT:144.8kg BMI:40.97 I have reviewed the triage vital signs. CONST: [Well nourished, well developed,obese male,pale appearing, uncomfortable, clutching his left chest appears younger thanstated age] EYES: [Pupils equal and round, no scleral icterus] HENT: [Normal cephalic, atraumatic, neck supple, no significant lymphadenopathy] CV: [Regular rate and rhythm, no murmurs, skin warm with well-perfused extremities] RESP: [Clear to auscultation bilaterally,no wheezing, rales, rhonchi,mildly labored respiratoryeffort] GI: [Soft, non-tender, non-distended, no masses] MSK: [No gross deformities appreciated, no peripheral edema] SKIN: [Warm, dry, no rashes] NEURO: [Alert, oriented x3, sensation and motor function of extremities grossly intact] PSYCH: [Anxious mood and affect] Medical Decision Making Differential: ACS, PE, dissection,costochondritis,gastric reflux,gastritis Kiran a42 YearsMalewith above stated past medical history presenting to theemergency department for evaluation of shortness of breath with dyspnea on exertion and chest pain has occurred for 1 daythat jazmyne mooreenough to cause 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 Vital signs were reviewed and noted to besignificant for tachypnea with increased work of [id number] exertion, otherwise hemodynamically stable.Work upl included CBC, BMP, D-dimer, troponin, EKG, chest x-ray. Imaging and lab work was completed and showed an elevated D-dimer, but CT PE was ordered. Pain and symptom control initiated with morphine and Dilaudidas well asSolu-Medrol and Benadryl in preparation for CT PE. [Labs significant for:]Normal chemistry panel aside from hyperglycemia,completely normal CBCwith differential, elevated D-dimer 1.03, negative troponin. [EKG/Monitor reviewed by me and significant for:] Normal sinus rhythm with sinus rhythm without anyischemic changesor evidence of right heart strain [Imaginginterpreted by me and significant for:] X-rayshows no acute abnormality or concern for opacification, pneumothorax, effusion,or osseous abnormality. CT PE is negative forpulmonary embolism, no further evidence of aortic pathology seen on CT PE. Reexamination/Reevaluation On reassessment, patient continues to have chest pain followingadministration of analgesics. Patient was ambulated andfound to be hypoxic to 86%on ambulatory trial. Given this, patient will be admittedto internal medicine observation status for further management of chest pain that does not appear to be cardiac in nature or related to pulmonary embolism but persistent despite analgesicswith associated acute hypoxic respiratory failure. [facility] Repeat troponin pending to assess, though patient's pain has beengreater than 6 hours and has lasted for over a day thus far. Patient may have a viralupper respiratory infection resulting inacute hypoxic respiratory failure of unknown etiology at this time. Assessment/Plan 1.Atypical chest pain Medication Reconciliation Unchanged acetaminophen (acetaminophen 500 mg oral tablet)1 tab(s) by mouth every 6 hours as needed as neededfor pain. amitriptyline (amitriptyline 25 mg oral tablet) [id number] Milligram by mouth once daily. diclofenac topical (Voltaren 1% topical gel)1 kaye topically 4 times daily as needed [...] times daily for 14 Days. Refills: 0. ondansetron (Zofran ODT 4 mg oral tablet, disintegrating)1 tab(s) by mouth 3 times daily as needed as needed for nausea/vomiting for 3 Days. Refills: 0. oxyCODONE (oxyCODONE 5 mg oral tablet)5 Milligram by mouth every 6 hours as needed as needed for pain. pantoprazole (Protonix)40 Milligram by mouth 2 times daily. pregabalin (Lyrica 200 mg oral capsule)1 cap by mouth 2 times daily. rivaroxaban (rivaroxaban 20 mg oral tablet)1 tab(s) by mouth once daily. tiZANidine2 Milligram by mouth every 6 hours as needed spasms. Attestation I personally performed a history and physical exam and discussed the management plan with the resident. I independently confirmed lim portions of the history and physical exam, and agree with resident note which I have reviewed and edited to reflect my findings. Arik Call MD Problem List/Past Medical History Ongoing Eosinophilic esophagitis [...] Anaphylaxis penicillinsWheezing phenytoinUnknown seafood topiramateUrticaria Social History No current tobacco use, no alcohol, no illicit drug use Lab Results Chemistry LATEST RESULTS HISTORICAL RESULTS Na 11/25/22 07:58 143 mmol/L 10/12/22 140 mmol/L K 11/25/22 07:58 4.3 mmol/L 10/12/22 3.8 mmol/L Cl- 11/25/22 07:58 106 mmol/L 10/12/22 103 mmol/L HCO3 11/25/22 07:58 23 mmol/L 10/12/22 26 mmol/L Anion Gap 11/25/22 07:58 14 mmol/L 10/12/22 11 mmol/L BUN 11/25/22 07:58 19 mg/dL 10/12/22 18 mg/dL Cret 11/25/22 07:58 0.92 mg/dL 10/12/22 1.01 mg/dL Estimated CrCl 11/25/22 08:46 160.31 10/12/22 145.75 eGFR CKD-EPI 11/25/22 07:58 >90 mL/min/1.73 m2 10/12/22 >90 mL/min/1.73 m2 Glu 11/25/22 07:58 245 mg/dL High 10/12/22 208 mg/dL High Ca 11/25/22 07:58 10.1 mg/dL 10/12/22 9.4 mg/dL CBC LATEST RESULTS HISTORICAL RESULTS WBC 11/25/22 07:58 4.30 K/uL 10/12/22 6.73 K/uL Hgb 11/25/22 07:58 13.5 g/dL 10/12/22 13.0 g/dL Hct 11/25/22 07:58 39.2 % 10/12/22 38.2 % Low RBC 11/25/22 07:58 4.47 M/uL 10/12/22 4.39 M/uL Low MCV 11/25/22 07:58 87.7 fL 10/12/22 87.0 fL MCHC 11/25/22 07:58 34.4 g/dL 10/12/22 34.0 g/dL MCH 11/25/22 07:58 30.2 pg 10/12/22 29.6 pg RDW 11/25/22 07:58 13.7 % 10/12/22 13.8 % Plts 11/25/22 07:58 232 K/uL 10/12/22 215 K/uL MPV 11/25/22 07:58 9.8 fL 10/12/22 10.0 fL Type of Diff: 11/25/22 07:58 AUTO 10/12/22 AUTO Immature Gran% 11/25/22 07:58 0.2 % 10/12/22 0.3 % Neut% 11/25/22 07:58 51.7 % 10/12/22 55.0 % Lymph% 11/25/22 07:58 30.2 % 10/12/22 27.2 % [place]% 11/25/22 07:58 7.9 % 10/12/22 7.4 % Baso% 11/25/22 07:58 0.9 % 10/12/22 0.7 % Eos% 11/25/22 07:58 9.1 % 10/12/22 9.4 % Immat Gran, Abs 11/25/22 07:58 0.01 K/uL 10/12/22 0.02 K/uL Neut, Abs 11/25/22 07:58 2.22 K/uL 10/12/22 3.70 K/uL Lymph, Abs 11/25/22 07:58 1.30 K/uL 10/12/22 1.83 K/uL [place], Abs 11/25/22 07:58 0.34 K/uL 10/12/22 0.50 K/uL Baso, Abs 11/25/22 07:58 0.04 K/uL 10/12/22 0.05 K/uL Eos, Abs 11/25/22 07:58 0.39 K/uL 10/12/22 0.63 K/uL High Coagulation LATEST RESULTS HISTORICAL RESULTS D-dimer (q) 11/25/22 07:58 1.03 ug/mL FEU High 10/12/22 0.52 ug/mL FEU Cardiac/Lipi LATEST RESULTS HISTORICAL RESULTS Troponin T Delta 11/25/22 07:58 NOT CALCULATED 10/12/22 NOT CALCULATED Troponin T 11/25/22 07:58 <0.010 ng/mL 10/12/22 <0.010 ng/mL Diagnostic Results (11/25/2022 15:[address] Chest - PE) IMPRESSION: No evidence of pulmonary embolism. [1] ECG Normal sinus rhythm with sinus arrhythmia at 71 bpm, normal [place] interval, normal QRS, no overt ischemic changes, no T wave abnormalities, QTc = 441 ms. [1]CT Chest - PE; MD Eddie, Jaspal Lainez 11/25/2022 15:41 EDT Electronic Signature on File Electronically Reviewed/Signed by: Sy Sharma MD Author Signature Dt/Tm:11/27/2022 03:53 PM Resident Department of Emergency Medicine Electronically Reviewed/Signed by: Ese Call MD Cosigner Signature Dt/Tm: 11/29/2022 03:03 PM Department of Emergency Medicine CS Discharge instructions * QUE He Dana E: MODIFY, PERFORM Event Display: Patient Discharge Instructions Authored Date: [id number] DAVID BURRIS Jr. :1980 Visit Date:11/25/2022 Patient Discharge Instructions [facility] For medical concerns, call: . Date of Admission:11/25/2022 Date of Discharge:11/27/2022 Physician:MD Dhiraj [facility] Service:Internal Medicine Discharge Disposition: . Advance Directive:None Reason for Hospitalization Atypical chest pain Your Diagnoses Atypical chest pain History of factor V Leiden mutation Oxygen desaturation My Health Patient Portal: [employer] makes it easy for you to manage your health information online. My [employer] is a free service that provides you instant, secure access to your medical information anytime, anywhere. Sign in or set up your account today at [email or web address] Thank you for allowing us to assist you with your healthcare needs. If you need additional community resources, DYLAN Davalos can help at [email or web address].[email or web address]. 211 can assist you in connecting with social programs based on your unique needs and locations. 211 is an anonymous search that can help you locate resources for: Food, Housing, Transportation, Goods, Education and Healthcare. Medications What How Much When Instructions Next Dose Unchanged acetaminophen (acetaminophen 500 mg oral tablet) 1 tab(s) by mouth Every 6 hours as needed for as needed for pain Unchanged amitriptyline (amitriptyline 25 mg oral tablet) 1 tab daily Unchanged atorvastatin 40 Milligram by mouth Once daily Unchanged diclofenac topical (Voltaren 1% topical gel) 1 kaye topically 4 times daily as needed for Pain Unchanged empagliflozin (empagliflozin 25 mg oral tablet) 25 Milligram by mouth Once a day (in the morning) Unchanged fentaNYL (fentaNYL 25 mcg/ hr transdermal film, extended release) 1 patch(es) topically Every 72 hours Discuss titration or refills with outpatient prescriber Unchanged fluticasone nasal (Flonase 50 mcg/ inh nasal spray) 1 spray(s) in each nostril Once daily Unchanged insulin aspart (NovoLOG FlexPen 100 units/ mL injectable solution) See instructions sliding scale with meals Unchanged insulin glargine (Lantus Solostar Pen 100 units/ mL subcutaneous solution) 36 unit(s) subcutaneously At bedtime Unchanged lidocaine topical (lidocaine 5% patch) 1 patch(es) topically Once daily as needed for pain back / chest Unchanged magnesium oxide (magnesium oxide 400 mg (241.3 mg elemental magnesium) oral tablet) 1 tab(s) by mouth Once daily Unchanged metformin (metformin 500 mg oral tablet) 2 tab(s) by mouth 2 times daily Unchanged metoprolol (Lopressor 50 mg oral tablet) 0.5 tab(s) by mouth 2 times daily Duration: 14 Days Unchanged multivitamin 1 tab(s) by mouth Once daily Unchanged pantoprazole (Protonix) 40 Milligram by mouth 2 times daily Unchanged pregabalin (Lyrica 200 mg oral capsule) 1 cap by mouth 2 times daily Unchanged rivaroxaban (rivaroxaban 20 mg oral tablet) 1 tab(s) by mouth Once daily Unchanged thiamine (Vitamin B1 50 mg oral tablet) 1 tab(s) by mouth Once daily Unchanged trolamine salicylate topical (Aspercreme 10% topical cream) 1 kaye topically 4 times daily as needed for Pain What How Much When Comments Stop Taking oxyCODONE (oxyCODONE 5 mg oral tablet) 5 Milligram by mouth Every 4 hours as needed for as needed for pain Was weaned by outpatient prescriber; for discussion, please discuss with provider with whom you have an opioid contract signed. Allergies iodinated radiocontrast dyes(Severe)Anaphylaxis iodine(Severe)Anaphylaxis Adhesive bandage (Mild)Rash Ativanlow heart rate Depakote IVP dyeDyspnea, Anaphylaxis MagnevistItchiness with no hives or rash NSAIDS (nonsteroidal anti-inflammatory agents) Novocain cloZAPineUnknown gadopentetate dimeglumineItching, Urticaria ibuprofenWheezing, Dyspnea, Anaphylaxis ketorolacRash/Dermatitis, Anaphylaxis penicillinsWheezing phenytoinUnknown seafood topiramateUrticaria What to do next Instructions From Your Doctor Follow-Up Appointments: Keep all your follow up appointments as already scheduled. Please call to schedule a follow-up with your primary care provider within 1 week of discharge. Please follow-up with your provider who is managing yourchronic opioid medications to discuss adjustment or titration concerns. An outpatient cardiacstress test has been ordered. You will be contacted to schedule. Medications: Please review your medications and ask your physician if you have any questions. Your medication list has been reviewed and reconciled upon discharge to ensure accuracy and continuity of care. You are provided with a list of all your current medications at this time. Please review closely and make note of any changes. Take all of your medications exactly as prescribed. Tell your primary care provider if you cannot afford your medications. Call your primary care provider if you are having any side effects or any other problems. Call your primary care provider before taking any over the counter medications or supplements, including herbals and vitamins, because some of these may interact with your current medications and/or make your symptoms worse. No intentional changes have been made to your home medication list. Activity: Resume your normal activities as tolerated. Always use fall precautions and resume activities slowly as you were just hospitalized and you may need continued recovery time. Physical activity is an important component of a healthy lifestyle.When going from lying down or sitting down to standing up, go slow to allow your body to adjust and pause if you feel lightheaded or dizzy. If you notice the following symptoms Please call your PCP ifyou have any questions or concerns or if experiencing any of the following, including but not limited to: worsening in any of your symptoms, chest pain, palpitations, shortness of breath, fever, chills, nausea, vomiting, diarrhea, unrelieved constipation, trouble swallowingor chewing your food, bleeding from any part of your body, uncontrolled pain, increasing weakness, altered mental status, rash/hives, feeling like you want to hurt or kill yourself. Contact our Careline at . If unable to contact your physician and you feel it is an emergency, go to the nearest Emergency Room or call 911 Diet Instructions Per home diet. Activity Instructions Per usual activity level. Follow-Up Appointments You Need to Schedule the Following Appointments Follow Up withFollow up with primary care provider When:Within 5 to 7 days Why: Call your doctor to make an appointment Someone Will Contact You Regarding These Appointments Outpatient Cardiac NM SPECT Stress The Following Services Have Been Arranged for You No Post-Acute Placement(s) Listed No Post-Acute Service(s) Listed Test Results (11/25/2022 08:25 EDT XR Chest 1 View) IMPRESSION: Hypoinflation without other acute finding. [1] (11/25/2022 15:[address] Chest - PE) IMPRESSION: No evidence of pulmonary embolism. [2] (11/26/2022 16:21 EDT Echo TransTHORacic TTE Complete) Summary 1. Normal left ventricular size and systolic function. 2. Estimated ejection fraction 60-65%. 3. No regional wall motion abnormalities. 4. No left ventricular hypertrophy. 5. No significant valvular abnormalities. 6. Compared to previous study from 01/10/22 , there is no significant change. [3] Tests Pending Extra Blue To obtain results pending at hospital discharge, call and ask for the following Physician:MD Dhiraj, Sergio Special Instructions Common Emergency Awareness Tips Call 911 immediately if: experiencing any of the warning signs and symptoms of stroke: B.E. F.A.S.T. Balance: is there trouble with walking or coordination Eyes: is there double vision or visual loss Face: Smile, do both sides of face move equally Arm: Raise arms, do both arms move equally Speech: Is speech slurred or inappropriate Time: Time is critical, call 911 immediately Heart Attack Signs Chest discomfort: Most heart attacks involve discomfort in the center of the chest and lasts more than a few minutes, or goes away and comes back. It can feel like uncomfortable pressure, squeezing, fullness or pain. Discomfort in upper body: Symptoms can include pain or discomfort in one or both arms, back, neck, jaw or stomach. Shortness of breath: With or without discomfort. Other signs: Breaking out in a cold sweat, nausea, or lightheaded. Remember, MINUTES DO MATTER. If you experience any of these heart attack warning signs, call to get immediate medical attention! Education Materials Nonspecific Chest Pain, Adult Chest pain is an uncomfortable, tight, or painful feeling in the chest. The pain can feel like a crushing, aching, or squeezing pressure. A person can feel a burning or tingling sensation. Chest paincan also be felt in your back, neck, jaw, shoulder, or arm. This pain can be worse when you move, sneeze, or take a deep breath. Chest pain can be caused by a condition that is life-threatening. This must be treated right away. It can also be caused by something that is not life- threatening. If you have chest pain, it can be hard to know the difference, so it is important to get help right away to make sure that you do not have a serious condition. Some life-threatening causes of chest pain include: Heart attack. A tear in the body's main blood vessel (aortic dissection). Inflammation around your heart (pericarditis). A problem in the lungs, such as a blood clot (pulmonary embolism) or a collapsed lung (pneumothorax). Some non life-threatening causes of chest pain include: Heartburn. Anxiety or stress. Damage to the bones, muscles, and cartilage that make up your chest wall. Pneumonia or bronchitis. Shingles infection (varicella-zoster virus). Your chest pain may come and go. It may also be constant. Your health care provider will do tests and other studies to find the cause of your pain. Treatment will depend on the cause of your chest pain. Follow these instructions at home: Medicines Take [id number] and prescription medicines only as told by your health care provider. If you were prescribed an antibiotic medicine, take it as told by your health care provider. Do notstop taking the antibiotic even if you start to feel better. Activity Avoid any activities that cause chest pain. Do not lift anything that is heavier than 10 lb (4.5 kg), or the limit that you are told, until your health care provider says that it is safe. Rest as directed by your health care provider. Return to your normal activities only as told by your health care provider. Ask your health care provider what activities are safe for you. Lifestyle Do not use any products that contain nicotine or tobacco, such as cigarettes, e- cigarettes, and chewing tobacco. If you need help quitting, ask your health care provider. Do not drink alcohol. Make healthy lifestyle changes as recommended. These may include: Getting regular exercise. Ask your health care provider to suggest some exercises that are safe foryou. Eating a heart-healthy diet. This includes plenty of fresh fruits and vegetables, whole grains, low-fat (lean) protein, and low-fat dairy products. A dietitian can help you find healthy eating options. Maintaining a healthy weight. Managing any other health conditions you may have, such as high blood pressure (hypertension) or diabetes. Reducing stress, such as with yoga or relaxation techniques. General instructions Pay attention to any changes in your symptoms. It is up to you to get the results of any tests that were done. Ask your health care provider, or the department that is doing the tests, when your results will be ready. Keep all follow-up visits as told by your health care provider. This is important. You may be asked to go for further testing if your chest pain does not go away. Contact a health care provider if: Your [...] it feels like it is skipping beats. These symptoms may represent a serious problem that is an emergency. Do not wait to see if the symptoms will go away. Get medical help right away. Call your local emergency services (911 in the [place] Do not drive yourself to the hospital. Summary Chest pain can be caused by a condition that is serious and requires urgent treatment. It may also be caused by something that is not life-threatening. Your health care provider may do lab tests and other studies to find the cause of your pain. Follow your health care provider's instructions on taking medicines, making lifestyle changes, and getting emergency treatment if symptoms become worse. Keep all follow-up visits as told by your health care provider. This includes visits for any further testing if your chest pain does not go away. This information is not intended to replace advice given to you by your health care provider. Make sure you discuss any questions you have with your health care provider. Document Revised: 04/30/2021 Document Reviewed: 04/30/2021 [employer] Patient Education 2022 [employer]. [1]XR Chest 1 View; DO Walters Matthew D 11/25/2022 08:25 EDT [2]CT Chest - PE; MD Eddie, [facility] 11/25/2022 15:41 EDT [3]Echo TransTHORacic TTE Complete; MD Grimes Eric 11/26/2022 16:21 EDT Patient Care team information Care Team Personnel Name: Rasheeda Benitez Amy E Position: Pharmacist Member Role: Pharmacy - Lifetime Address: Address: [address] Name: Rasheeda Eng Keri Position: Pharmacist Member Role: Pharmacy - Lifetime Name: HANK Malik, Lissy Horvath Position: RN Member Role: Direct Care Nurse Name: R.E.S. Not Needed Position: Resident Name: HANK Auguste, Ted Position: RN Member Role: Direct Care Nurse Name: DO Monique Meghan Anne Position: Physician - Hospitalist Med Member Role: Covering (3 days after created) Address: Address: [address] [place] [address] Care Team Related Persons Name: LISBETH ABDALLA Address: home [address] [place] [address] DYLAN JOSE [phone]
--- NOTE | 2023-05-27 10:01 | History & Physical Bridge Note ---
Date of Service May 27, 2023 History & Physical Bridge Note I have examined the patient, reviewed the History & Physical and in the interval since the performance of the History & Physical I have noted the following changes of clinical significance: no changes noted Supervising Physician Co-Signing Physician Notes EGD for evaluation of hematemesis. Given he is still on eliquis, this will likely be a diagnostic egd and therapeutic egd for eoe would be recommended as an outpt.
--- NOTE | 2023-05-27 10:12 | Anesthesiology Consultation ---
Date of Service May 27, 2023 Assessment & Plan Chart Review Chart Review: Acceptable Risk for Surgery and Patient NOT seen in Pre Admission Testing Consults Requested none ASA ASA3 Proposed Anesthesia Anesthesia Type: MAC Risk / Benefits Reviewed With: PT / POA / Parent / Guardian, Accepts Plan and Informed Consent Obtained History Surgery Operation Date: 05/27/23 18:00 Proposed Procedures p Esophagogastroduodenoscopy Dr. Alex Johnson MD Height/Weight Height: 6 ft 2 in Weight: 132.6 kg Allergies Allergy/AdvReac Type Severity Reaction Status Date / Time penicillin V Allergy Severe RESP Verified 05/27/23 09:52 DIFFICULTY NSAIDS (Non-Steroidal Allergy Unknown UNKNOWN Unverified 05/27/23 09:52 Anti-Inflamma procaine Allergy Unknown UNKNOWN Unverified 05/27/23 09:52 adhesive Allergy _ Verified 05/27/23 09:52 Iodinated Contrast Media Allergy PROFILED Verified 05/27/23 09:52 "SEAFOOD ALLERGY=RASH" aripiprazole AdvReac Intermediate SEVERE Verified 05/27/23 09:52 MUSCLE CRAMPING clozapine AdvReac Intermediate ELEVATED Verified 05/27/23 09:52 AMMONIA LEVELS valproic acid AdvReac Unknown ELEVATED Verified 05/27/23 09:52 AMMONIA LEVELS Medications Home Medications Medication Instructions Recorded Confirmed Last Taken adalimumab 40 mg/0.8 mL 40 mg subcut .Q2W 05/26/23 05/26/23 05/14/23 subcutaneous syringe kit (Humira) atorvastatin 40 mg tablet 40 mg PO DAILY 05/26/23 05/26/23 Unknown empagliflozin 25 mg tablet 25 mg PO DAILY 05/26/23 05/26/23 Unknown (Jardiance) insulin glargine 100 unit/mL (3 36 unit subcut QPM 05/26/23 05/26/23 Unknown mL) subcutaneous pen (Lantus Solostar U-100 Insulin) insulin lispro 100 unit/mL 0 unit subcut UD PRN Hyperglycemia 05/26/23 05/26/23 Unknown subcutaneous pen (Humalog KwikPen (U-100) Insulin) metformin 1,000 mg tablet 1,000 mg PO BID 05/26/23 05/26/23 Unknown pregabalin 200 mg capsule (Lyrica) 200 mg PO BID 05/26/23 05/26/23 Unknown rivaroxaban 20 mg tablet (Xarelto) 20 mg PO DAILYBD 05/26/23 05/26/23 Unknown Active Medications Generic Name Dose Route Start Last Admin Trade Name Freq PRN Reason Stop Dose Admin Atorvastatin Calcium 40 mg 05/27/23 09:00 05/27/23 07:37 Atorvastatin 40 Mg Tab PO 06/26/23 08:59 40 mg DAILY SALLY Administration Pantoprazole Sodium 40 mg/ 100 mls @ 20 mls/hr 05/26/23 18:45 05/27/23 05:59 Dextrose IV 06/25/23 18:44 8 mg/hr Q5H SALLY 20 mls/hr Administration 8 MG/HR Sodium Chloride 1,000 mls @ 125 mls/hr 05/26/23 22:40 05/27/23 07:36 Nss IV 06/25/23 22:39 125 mls/hr .Q8H SALLY Administration Insulin Aspart 0 units 05/26/23 23:00 05/27/23 06:23 Insulin Aspart Per Unit Charge SC 06/25/23 22:59 Not Given Q6 SALLY Insulin Glargine 18 units 05/26/23 22:40 05/26/23 23:36 Lantus Per Unit Charge SQ 06/25/23 22:39 18 units QPM SALYL Administration Morphine Sulfate 2 mg 05/26/23 22:40 05/27/23 08:12 Morphine Sulfate 2 Mg/Ml Carp IV 06/09/23 22:39 2 mg Q4H PRN Administration Mod-Sev Pain (Scale 4-10) Pregabalin 200 mg 05/26/23 22:40 05/27/23 07:39 Pregabalin 100 Mg Cap PO 06/25/23 22:39 200 mg BID SALLY Administration NPO Date Last Intake of Fluids: 05/27/23 Time Last Intake of Fluids: 07:30 Date Last Intake of Solids: 05/25/23 Time Last Intake of Solids: 16:00 Exercise / Class Metabolic Activity II 4-5 Yardwork/Stairs/Walk up hill Past Anesthesia History No Hx of Anesthesia Complications and No Family Hx of Anesthesia Complications History of PONV No Hx of PONV and No Hx of Motion Sickness Social History Smoking Status: Never smoker Hx Alcohol Use: No Hx Substance Use: No Review of Systems ROS Unobtainable: All systems reviewed & are unremarkable except as noted in HPI & below Physical Exam Vital Signs Last Vital Signs Temp 36 C L 05/27/23 09:52 Pulse 60 05/27/23 09:52 Resp 18 05/27/23 09:52 BP 122/66 05/27/23 09:52 Pulse Ox 96 05/27/23 09:52 O2 Del Method Room Air 05/27/23 09:52 ENMT Mouth: + poor dentition (multiple missing and chipped teeth); no TMJ abnormality Thyromental Distance: > or= 3.5 Finger Breadths Mallampati Class: II Mouth / Teeth: 2 1. [place]ck normal visual inspection and trachea midline; neck extension not limited Respiratory normal respiratory effort Auscultation: lungs clear to auscultation bilaterally Cardiovascular Rate/Rhythm: regular rate and regular rhythm Heart Sounds: no murmur Musculoskeletal Spine: normal cervical ROM Extremities: full ROM of extremities Neurologic moves all extremities Psychiatric Orientation: alert and oriented x 3 Testing Laboratory Results 05/27/23 06:15 05/27/23 06:15 PT 9.6 Seconds (9.0-12.0) 05/26/23 16:14 INR 0.9 (0.9-1.1) 05/26/23 16:14 APTT 25 Seconds (21-31) 05/26/23 16:14 Hemoglobin A1c 7.0 % (4.5-5.6) H 05/27/23 06:15 Blood Type O Positive 05/26/23 17:31 Antibody Screen NEGATIVE 05/26/23 17:31
--- NOTE | 2023-05-27 10:52 | GI REPORT ---
Patient Name: Luis Burris Procedure Date: 05/27/2023 10:33 AM Date of : 1980 Admit Type: Inpatient Age: 43 Gender: Male Attending MD: Brandee Johnson M.d., Procedure: Upper GI endoscopy Providers: Brandee Johnson M.d. Referring MD: Rod Bruner Md Indications: Hematemesis Medicines: See the Anesthesia note for documentation of the administered medications Complications: No immediate complications. Estimated Blood Loss: Estimated blood loss: none. Procedure: Pre-Anesthesia Assessment: - Patient identification and proposed procedure were verified prior to the procedure by the physician, the nurse and the anesthesiologist. The procedure was verified in the pre-procedure area. - Prior to the procedure, a History and Physical was performed, and patient medications, allergies and sensitivities were reviewed. The patient's tolerance of previous anesthesia was reviewed. - The risks and benefits of the procedure and the sedation options and risks were discussed with the patient. All questions were answered and informed consent was obtained. After obtaining informed consent, the endoscope was passed under direct vision. Throughout the procedure, the patient's blood pressure, pulse, and oxygen saturations were monitored continuously. The Endoscope was introduced through the mouth and advanced to the. The upper GI endoscopy was accomplished without difficulty. The patient tolerated the procedure well. Findings: The examined esophagus appeared normal. LA Grade A (one or more mucosal breaks less than 5 mm, not extending between tops of 2 mucosal folds) esophagitis without bleeding was found. The Z-line appeared regular. The examined stomach appeared normal. The duodenal bulb and second portion of the duodenum appeared normal. Impression: - Normal esophagus. - LA Grade A reflux esophagitis with no bleeding. - Z-line regular. - Normal stomach. - Normal duodenal bulb and second portion of the duodenum. Recommendation: - Return to the floor. - Given concerns for esophagitis and mild dysphagia that he states is from his prior diagnosis of Eoe - would suggest starting Prilosec 20 mg daily (ensuring it is taken 30-45 minutes prior to his am meal) while in house and as an outpatient. Aydin Paris M.d. 05/27/2023 10:51:36 AM This report has been signed electronically. Note Initiated On: 05/27/2023 10:33 AM Number of Addenda: 0 I attest to the content of the Intraoperative Record and orders documented therein, exceptions below {[id number]}
--- NOTE | 2023-05-27 10:54 | Communication Note ---
Date of Service: May 27, 2023 EGD completed with findings of mild la grade a distal esophagitis- not actively bleeding No other stigmata or findings of a recent bleed or cause for bleed (hematemesis) were noted on today's examination ( no ulcer or gastritis or duodenitis noted). Given a normal bun and slight drop in hgb on labs- he likely did not have a significant gi bleed. Given mild complaints of dysphagia and known history of eoe but not taking medications for this, biopsies and dilation were not done today as he had not stopped his eliquis. Would recommend Prilosec 20 mg daily to take every morning 30-45 minutes prior to his am meal for findings of esophagitis and prior diagnosis of eoe. Outpatient egd can be pursued in 8-12 weeks for further evaluation of eoe after taking a ppi regularly as an outpatient. Gi will sign off - call if questions.
[2023-05-27] MEDS: ALUMINUM/MAGNESIUM SUSP 30 ML UDC PO STA (11:46)
--- NOTE | 2023-05-27 11:58 | Anesthesiology Progress Note ---
Date of Service May 27, 2023 Anesthesia Post Procedure Vital Signs Vital Signs: Temp Pulse Pulse Resp BP BP Pulse Ox 05/27/23 11:19 60 16 104/76 95 05/27/23 11:04 60 16 110/76 92 05/27/23 10:49 61 16 119/72 95 05/27/23 09:52 36 C L 60 18 122/66 96 05/27/23 08:07 36.3 C L 60 16 122/76 97 05/27/23 04:10 36.4 C L 65 18 137/81 96 05/27/23 04:08 62 05/27/23 01:06 63 05/27/23 00:14 60 18 94/60 L 96 05/27/23 00:10 60 18 94/63 L 95 05/26/23 23:00 86/67 L 05/26/23 23:00 60 20 96 05/26/23 22:40 05/26/23 22:00 70 15 05/26/23 21:47 73 05/26/23 21:00 131/84 05/26/23 21:00 69 12 96 05/26/23 20:30 128/71 05/26/23 20:30 68 16 97 05/26/23 20:00 137/79 05/26/23 20:00 65 10 L 98 05/26/23 19:30 131/78 05/26/23 19:30 64 12 98 05/26/23 19:16 64 18 120/99 99 05/26/23 19:15 120/99 05/26/23 19:15 71 05/26/23 19:06 78 17 05/26/23 18:30 127/77 05/26/23 18:30 113 H 05/26/23 18:04 75 05/26/23 18:00 130/83 05/26/23 18:00 74 12 98 05/26/23 17:59 73 16 98 05/26/23 17:54 72 18 126/78 98 05/26/23 15:51 36.8 C 89 20 153/96 H 97 Pulse Ox O2 Del Method 05/27/23 11:19 Room Air 05/27/23 11:04 Room Air 05/27/23 10:49 Room Air 05/27/23 09:52 Room Air 05/27/23 08:07 Room Air 05/27/23 04:10 Room Air 05/27/23 04:08 05/27/23 01:06 05/27/23 00:14 Room Air 05/27/23 00:10 Room Air 05/26/23 23:00 05/26/23 23:00 05/26/23 22:40 99 05/26/23 22:00 05/26/23 21:47 05/26/23 21:00 05/26/23 21:00 05/26/23 20:30 05/26/23 20:30 05/26/23 20:00 05/26/23 20:00 05/26/23 19:30 05/26/23 19:30 05/26/23 19:16 Room Air 05/26/23 19:15 05/26/23 19:15 05/26/23 19:06 05/26/23 18:30 05/26/23 18:30 05/26/23 18:04 05/26/23 18:00 05/26/23 18:00 05/26/23 17:59 05/26/23 17:54 Room Air 05/26/23 15:51 Room Air Transfer of Care Handoff Completed per policy Notes Mental Status: alert / awake / arousable Patient Amnestic to Procedure: Yes Nausea / Vomiting: adequately controlled Pain: adequately controlled Airway Patency, RR, SpO2: stable & adequate BP & HR: stable & adequate Hydration State: stable & adequate Anesthetic Complications: no major complications apparent and Pt Satisfied with anesthetic care
[2023-05-27 12:03] LABS: Hematocrit (blood only) 36.5 % (42.0-52.0); Hemoglobin 12.4 g/dl (14.0-18.0)
[2023-05-27] MEDS: ONDANSETRON INJ 2 MG/ML 2 ML VIAL ONE (12:14)
[2023-05-27] MEDS: PROPOFOL IV EMULSION 10 MG/ML 20 ML VIAL IV ONE ×2 (12:14→12:15)
[2023-05-27] MEDS: LIDOCAINE 2% 2 ML VIAL/AMP(20MG/ML) INFIL ONE ×2 (12:14)
[2023-05-27] MEDS: GLYCOPYRROLATE 0.2 MG/ML VIAL ONE (12:14)
[2023-05-27] MEDS: KETAMINE HCL 10MG/ML SYR ONE (12:15)
--- NOTE | 2023-05-27 15:43 | Hospitalist Progress Note ---
Date of Service May 27, 2023 Assessment & Plan (1) Hematemesis: Plan: 43-year-old male with past med history significant for type 2 diabetes, hyperlipidemia, asthma, history of factor V Leyden mutation, history of chest pain, history of eosinophilic esophagitis, history of pseudoseizures, history of migraine, anxiety, Klinefelter syndrome, noncompliant, depression, medical marijuana use, history of symptomatic bradycardia s/p pacemaker history of ventricular tachycardia, fibromyalgia, morbid obesity, history of obstructive sleep apnea currently not using CPAP machine and states he lost weight and planning to do sleep study presents with hematemesis and epigastric pain Possible upper GI bleed Reflux esophagitis Patient presented with epigastric, periumbilical abdominal pain along with coffee-ground emesis Hemoglobin 13.6 on presentation; slightly down trended CT abdomen and pelvis shows eldon mesentery sign. possible mesenteric panniculitis Status post EGD on 05/26: Normal esophagus Grade a reflux esophagitis with no bleeding Normal stomach Currently on Protonix twice daily. Will advance diet as tolerated Plan to switch over to Prilosec 20 mg once a day Will resume anticoagulation tomorrow a.m. if hemoglobin continues to be stable Chest pain, Likely due to esophagitis High sensitive troponin negative Echocardiogram shows EF of 55 to 60% Monitor on telemetry. Type II diabetes On Lantus and NovoLog Continue monitor ACHS Factor V Leiden mutation Will resume Xarelto for tomorrow a.m. if hemoglobin is stable Rheumatoid arthritis On Humira Hyperlipidemia On statin Morbid obesity Needs counseling Nutrition follow-up Obstructive sleep apnea Currently not using CPAP States lost weight and trying to do repeat sleep study DVT prophylaxis SCDs Disposition Telemetry Full code Time spent evaluating patient, direct bedside care, chart review, placing orders, interpretation of diagnostic studies, discussion with consultants, patient, and family members, as well as other required patient management activities is 55 minutes Please note the above document was generated using voice recognition software. It may contain grammatical, syntax or spelling errors. Any formal questions or concerns about the content, text or information contained within the body of this dictation should be directly addressed to the provider for clarification Admission and Anticipated Discharge Date Admission Date: May 26, 2023 Subjective Patient seen and examined at bedside. He reports pain in the periumbilical region and lower abdomen. He underwent EGD and was found to have mild reflux esophagitis. Vitals are stable; Review of Systems Review of Systems: All systems reviewed & are unremarkable except as noted in Subjective Physical Exam Physical Exam: Constitutional: WD/WN, vitals as above, NAD, sitting up in bed, pleasant, conversing easily Respiratory: normal respiratory effort, lungs clear to auscultation, no wheeze, rales, rhonchi. Normal insp/exp effort, no accessory muscle use Cardiovascular: RRR, no murmur, no edema Vessels: no JVD or carotid bruit Chest: normal inspection of chest Abdomen: Tenderness present in epigastric, periumbilical and left lower quadrant. Musculoskeletal: no cyanosis or clubbing, extremities motor strength 5/5 Skin: no rashes, warm and dry normal turgor Neurologic: PERRL, EOMI, accommodation nl, no face palsy, no dysarthria CN's II- XI intact bilaterally and moves all extremities Psychiatric: A+Ox3, euthymic affect Results & Data Results & Data Vital Signs (Past 12 Hours) Vital Signs Temp Pulse Pulse Resp BP Pulse Ox O2 Del Method 05/27/23 15:20 36.5 C 59 L 16 125/79 97 Room Air 05/27/23 11:19 60 16 104/76 95 Room Air 05/27/23 11:04 60 16 110/76 92 Room Air 05/27/23 10:49 61 16 119/72 95 Room Air 05/27/23 09:52 36 C L 60 18 122/66 96 Room Air 05/27/23 08:07 36.3 C L 60 16 122/76 97 Room Air 05/27/23 04:10 36.4 C L 65 18 137/81 96 Room Air 05/27/23 04:08 62 (1) Hematemesis Nausea presence: with nausea Qualified Code(s): K92.0 - Hematemesis
--- NOTE | 2023-05-27 16:07 | Electrocardiogram Report ---
Test Reason : Blood Pressure : / mmHG Vent. Rate : 076 BPM Atrial Rate : 076 BPM P-R Int : 180 ms QRS Dur : 098 ms QT Int : 388 ms P-R-T Axes : 025 -17 030 degrees QTc Int : 436 ms Normal sinus rhythm with sinus arrhythmia Minimal voltage criteria for LVH, may be normal variant ( R in aVL ) Possible Anterolateral infarct , age undetermined Abnormal ECG When compared with ECG of 24-MAR-2011 15:00, Borderline criteria for Anterolateral infarct are now Present Confirmed by Robb James ([id number]) on 05/27/2023 4:06:44 PM Referred By: Confirmed By:Robb James
[2023-05-27 17:22] LABS: Hematocrit (blood only) 34.5 % (42.0-52.0)
[2023-05-27] MEDS: MoRPHine SULFATE 4 MG/ML 1 ML CARP\\VIAL IV STA (20:59)
[2023-05-27] MEDS: PANTOprazole 40 MG in SYRINGE 0 ML IV SCH (22:19)
[2023-05-28] MEDS ORDERED: methylPREDNISolone 125 MG/2 ML VIAL IV ONE
[2023-05-28] MEDS: MoRPHine SULFATE 2 MG/ML CARP IV STA (00:16)
[2023-05-28 00:34] LABS: Base Excess VBG 2.7 mEq/L; HCO3 VBG 29 mmol/L; Oxygen Saturation VBG 88.1 %; PCO2 VBG 50 mmHg (38-50); PO2 VBG 55 mmHg; pH VBG 7.37 (7.36-7.41)
[2023-05-28] MEDS: diphenhydrAMINE 50 MG/ML VIAL IV ONE (00:35)
[2023-05-28] MEDS: methylPREDNISolone 40 MG in SYRINGE 0 ML IV ONE (00:35)
[2023-05-28 00:44] LABS: Hematocrit (blood only) 35.8 % (42.0-52.0); Hemoglobin 12.3 g/dl (14.0-18.0)
[2023-05-28 00:58] LABS: Anion Gap 6 (3-11); BUN Creatinine Ratio 16.3 (10-20); Blood Urea Nitrogen 15 mg/dl (6-23); Calcium 9.1 mg/dl (8.6-10.3); Carbon Dioxide 25 mmol/L (21-32); Chloride 106 mmol/L (98-107); Creatinine Clr Calc Pharmacy 151.4 ml/min; Est GFR (African American) 118.5 ml/min; Est GFR (Non-African American) 102.2 ml/min; Glucose 151 mg/dl (70-99(Fasting)); Magnesium 1.7 mg/dl (1.7-2.4); Phosphorus 4.7 mg/dl (2.5-4.9); Potassium 3.9 mmol/L (3.5-5.1); Sodium 137 mmol/L (136-145)
[2023-05-28 01:06] LABS: Troponin I High Sensitivity < 2.3 pg/ml (0-20)
[2023-05-28] MEDS: OPTIRAY 320 125ml IV ONE (01:26)
--- NOTE | 2023-05-28 01:47 | CT Scan Report ---
Exam(s): CTA CHEST W/WO Contrast IV Amt: 118 cc opti 320 EXAM: CT Angiography Chest Without and With Intravenous Contrast CLINICAL HISTORY: Reason for exam: severe chest pain. TECHNIQUE: Axial computed tomographic angiography images of the chest without and with intravenous contrast. CTDI is 28.14 mGy and DLP is 852.52 mGy-cm. Automated exposure control was utilized for the study. A dose lowering technique was utilized adhering to the principles of ALARA. MIP reconstructed images were created and reviewed. CONTRAST: Patient received 118 cc opti 320 of IV contrast COMPARISON: No relevant prior studies available. FINDINGS: Pulmonary arteries: Unremarkable. No pulmonary embolism. Aorta: No acute findings. No thoracic aortic aneurysm. Lungs: Unremarkable. No mass. No consolidation. Pleural space: Unremarkable. No significant effusion. No pneumothorax. Heart: Cardiomegaly. No significant pericardial effusion. No evidence of RV dysfunction. Bones/joints: No acute fracture. No dislocation. Soft tissues: Unremarkable. Lymph nodes: Unremarkable. No enlarged lymph nodes. Liver: Hepatic steatosis. Gallbladder and bile ducts: Cholecystectomy. Tubes, lines and devices: Pacemaker leads. IMPRESSION: No acute findings in the visualized arteries of the chest. Electronically signed by: Yoshi Santiago MD 05/28/23 01:46 AM
[2023-05-28] MEDS: MAGNESIUM SULFATE / D5W 1 GM/100 ML BAG IV SCH (02:09)
[2023-05-28] MEDS: SODIUM CHLORIDE 0.9% 1,000 ML IV SCH (04:46)
[2023-05-28 07:20] LABS: Basophils # (auto) 0.01 K/uL (0.00-0.20); Basophils % (auto) 0.4 %; Eosinophils # (auto) 0.01 K/uL (0.00-0.50); Eosinophils % (auto) 0.4 %; Hematocrit (blood only) 36.8 % (42.0-52.0); Hemoglobin 12.7 g/dl (14.0-18.0); Immature Granulocytes # (auto) 0.01 K/uL (0.01-0.20); Immature Granulocytes % (auto) 0.4 %; Lymphocytes # (auto) 0.42 K/uL (1.20-3.40); Lymphocytes % (auto) 16.7 %; Mean Corpuscular Hemoglobin 29.5 pg (25.0-34.0); Mean Corpuscular Hgb Conc 34.5 g/dL (32.0-36.0); Mean Corpuscular Volume 85.6 fL (80.0-100.0); Mean Platelet Volume 9.5 fL (9.4-12.4); Monocytes # (auto) 0.05 K/uL (0.11-0.59); Neutrophils # (auto) 2.02 K/uL (1.40-6.50); Neutrophils % (auto) 80.1 %; Platelet Count 184 K/uL (130-400); RDW Coefficient of Variation 13.9 % (11.5-14.5); RDW Standard Deviation 43.2 fL (36.4-46.3); White Blood Count 2.52 K/ul (4.8-10.8)
[2023-05-28 07:53] LABS: BUN Creatinine Ratio 19.3 (10-20); Calcium 9.5 mg/dl (8.6-10.3); Creatinine Clr Calc Pharmacy 166.2 ml/min; Est GFR (African American) 125.8 ml/min; Est GFR (Non-African American) 108.5 ml/min; Potassium 4.7 mmol/L (3.5-5.1)
[2023-05-28 08:02] LABS: Troponin I High Sensitivity 2.5 pg/ml (0-20)
--- NOTE | 2023-05-28 08:29 | Cardiology Consultation ---
Date of Consultation May 28, 2023 Assessment & Plan (1) Acute upper GI bleed: (2) SSS (sick sinus syndrome): (3) Pacemaker: Plan Patient is a complex 43-year-old male referred for abnormalities on telemetry. Hospitalized acutely for GI bleed past history of gastric ulcer per patient description. Telemetry revealed wide-complex tachycardias reflecting artifact. Does carry history of past tachyarrhythmias, atrial arrhythmias per history. Also notes prior prior history of atrial lead dysfunction on pacemaker with sensing issues. Is aware of palpitations at times. No syncope or near syncope. Review of records reveals trials of beta-rosalino as well as flecainide with poor tolerance Impression: Current telemetry abnormalities reflect artifact. No arrhythmias Treat presenting problem agree with discharge today Will arrange for outpatient follow-up with cardiology and electrophysiology as patient plans on residing permanently in an area. Office contacted I spent a total of 60 minutes on the date of service in preparation, delivery, and documentation of the care provided to the patient excluding any time spent in the performance of separately billed services. History of Present Illness Reason for Consultation: SVT vs VT on telemetry Requesting Physician: [facility] Attending Physician: Rod Bruner MD History of Present Illness Medically complex 43-year-old male who presented to [facility] emergency department yesterday due to hematic emesis and epigastric discomfort. Patient carries a history of 6 symptomatic bradycardia status post permanent pacemaker as well as atrial tachycardia/SVT. Cardiology consulted due to findings of SVT versus VT on telemetry. Lab work unremarkable. High-sensitivity troponins negative x 3. Echocardiogram showing a preserved LVEF of 55 to 59% without wall motion abnormalities. No significant valvular disease. Follows with [facility] cardiology, Dr. Bullock Past medical history: History of symptomatic sinus bradycardia status post [employer]tronic dual-chamber permanent pacemaker 2022. History of symptomatic atrial tachycardia--formerly treated with beta-rosalino however this caused fatigue and hypotension, formerly on flecainide. Angiographically normal coronary arteries per cardiac cath, 2021 Factor V Leiden, on Xarelto History of pulmonary embolism Type 2 diabetes with diabetic retinopathy Rheumatoid arthritis HOLLEY, on CPAP Hypertension GERD History of pseudoseizures Klinefelter syndrome Allergies Allergy/AdvReac Type Severity Reaction Status Date / Time penicillin V Allergy Severe RESP Verified 05/27/23 09:52 DIFFICULTY NSAIDS (Non-Steroidal Allergy Unknown UNKNOWN Unverified 05/27/23 09:52 Anti-Inflamma procaine Allergy Unknown UNKNOWN Unverified 05/27/23 09:52 adhesive Allergy _ Verified 05/27/23 09:52 Iodinated Contrast Media Allergy PROFILED Verified 05/27/23 09:52 "SEAFOOD ALLERGY=RASH" aripiprazole AdvReac Intermediate SEVERE Verified 05/27/23 09:52 MUSCLE CRAMPING clozapine AdvReac Intermediate ELEVATED Verified 05/27/23 09:52 AMMONIA LEVELS valproic acid AdvReac Unknown ELEVATED Verified 05/27/23 09:52 AMMONIA LEVELS Home Medications Medication Instructions Recorded Confirmed Type adalimumab 40 mg/0.8 mL 40 mg subcut .Q2W 05/26/23 05/26/23 History subcutaneous syringe kit (Humira) atorvastatin 40 mg tablet 40 mg PO DAILY 05/26/23 05/26/23 History empagliflozin 25 mg tablet 25 mg PO DAILY 05/26/23 05/26/23 History (Jardiance) insulin glargine 100 unit/mL (3 36 unit subcut QPM 05/26/23 05/26/23 History mL) subcutaneous pen (Lantus Solostar U-100 Insulin) insulin lispro 100 unit/mL 0 unit subcut UD PRN Hyperglycemia 05/26/23 05/26/23 History subcutaneous pen (Humalog KwikPen (U-100) Insulin) metformin 1,000 mg tablet 1,000 mg PO BID 05/26/23 05/26/23 History pregabalin 200 mg capsule (Lyrica) 200 mg PO BID 05/26/23 05/26/23 History rivaroxaban 20 mg tablet (Xarelto) 20 mg PO DAILYBD 05/26/23 05/26/23 History omeprazole 20 mg capsule,delayed 20 mg PO DAILY #30 caps 05/28/23 Rx release Patient History Social History Smoking Status: Never smoker Hx Alcohol Use: No Hx Substance Use: No Preferred Language: Chinese Communication Ability: Effective Authorization Manager Required: No Beliefs That Will Affect Care: None Current Living Situation: Alone Feels Safe at Home: Yes Safety Concerns: Feels Safe At This Time Assistive Devices: None Results & Data Vital Signs (Past 12 Hours) Vital Signs Temp Pulse Pulse Resp BP Pulse Ox O2 Del Method 05/28/23 03:55 36.3 C L 59 L 20 112/72 93 Room Air 05/27/23 23:51 36.4 C L 59 L 20 136/87 97 Room Air 05/27/23 22:00 60 05/27/23 20:39 59 L 120/78 96 Room Air Laboratory Results Cardiac Enzymes 05/27/23 05/27/23 05/27/23 Range/Units 11:22 17:08 21:11 Troponin I High Sens < 2.3 < 2.3 < 2.3 (0-20) pg/ml 05/28/23 05/28/23 Range/Units 00:19 07:04 Troponin I High Sens < 2.3 2.5 (0-20) pg/ml CBC 05/27/23 05/27/23 05/28/23 Range/Units 11:22 17:08 00:19 WBC (4.8-10.8) K/ul RBC (4.70-6.10) M/uL Hgb 12.4 L 12.0 L 12.3 L (14.0-18.0) g/dl Hct 36.5 L 34.5 L 35.8 L (42.0-52.0) % Plt Count (130-400) K/uL Neut # (Auto) (1.40-6.50) K/uL Lymph # (Auto) (1.20-3.40) K/uL [place] # (Auto) (0.11-0.59) K/uL Eos # (Auto) (0.00-0.50) K/uL Baso # (Auto) (0.00-0.20) K/uL 05/28/23 Range/Units 07:04 WBC 2.52 L (4.8-10.8) K/ul RBC 4.30 L (4.70-6.10) M/uL Hgb 12.7 L (14.0-18.0) g/dl Hct 36.8 L (42.0-52.0) % Plt Count 184 (130-400) K/uL Neut # (Auto) 2.02 (1.40-6.50) K/uL Lymph # (Auto) 0.42 L (1.20-3.40) K/uL [place] # (Auto) 0.05 L (0.11-0.59) K/uL Eos # (Auto) 0.01 (0.00-0.50) K/uL Baso # (Auto) 0.01 (0.00-0.20) K/uL Comprehensive Metabolic Panel 05/28/23 05/28/23 Range/Units 00:19 07:04 Sodium 137 138 (136-145) mmol/L Potassium 3.9 4.7 D (3.5-5.1) mmol/L Chloride 106 106 (98-107) mmol/L Carbon Dioxide 25 26 (21-32) mmol/L BUN 15 16 (6-23) mg/dl Creatinine 0.92 0.83 (0.6-1.4) mg/dl Glucose 151 H 239 H (70-99(Fasting)) mg/dl Calcium 9.1 9.5 (8.6-10.3) mg/dl Intake and Output 05/27/23 05/28/23 05/28/23 22:59 06:59 14:59 Intake Total 340 / 2222.417 200 / 2222.417 Output Total 0 / 0 Balance 340 / 2222.417 200 / 2222.417 Intake: IV 100 / 1982.417 200 / 1982.417 Magnesium Sulfate / D5w 1 gm In 200 / 200 100 ml @ 50 mls/hr IV Q2H SALLY Rx#:[id number] PANTOprazole 40 mg In Dextrose 100 / 238.667 5% Mini-B 100 ml @ 8 MG/HR 20 mls/hr IV Q5H SALLY Rx#:[id number] Oral 240 / 240 Output: # Bowel Movements 0 / 0 Other: Other Intake Source sips # Unmeasured Voids 1 Weight 130.1 kg Weight Measurement Method Built in [facility] Diagnostic Findings Laboratory Results - last 24 hr 05/27/23 05/27/23 05/27/23 11:22 17:08 21:11 WBC RBC Hgb 12.4 L 12.0 L Hct 36.5 L 34.5 L MCV MCH MCHC RDW Std Deviation RDW Coeff of Tiesha Plt Count MPV Immature Gran % (Auto) Neut % (Auto) Lymph % (Auto) [place] % (Auto) Eos % (Auto) Baso % (Auto) Neut # (Auto) Lymph # (Auto) [place] # (Auto) Eos # (Auto) Baso # (Auto) Immature Gran # (Auto) VBG pH VBG pCO2 VBG pO2 VBG HCO3 VBG O2 Saturation VBG Base Excess Sodium Potassium Chloride Carbon Dioxide Anion Gap BUN Creatinine Est Cr Clr Drug Dosing Est GFR ( Amer) Est GFR (Non-Af Amer) BUN/Creatinine Ratio Glucose Calcium Phosphorus Magnesium Troponin I High Sens < 2.3 < 2.3 < 2.3 05/28/23 05/28/23 05/28/23 00:19 00:20 07:04 WBC 2.52 L RBC 4.30 L Hgb 12.3 L 12.7 L Hct 35.8 L 36.8 L MCV 85.6 MCH 29.5 MCHC 34.5 RDW Std Deviation 43.2 RDW Coeff of Tiesha 13.9 Plt Count 184 MPV 9.5 Immature Gran % (Auto) 0.4 Neut % (Auto) 80.1 Lymph % (Auto) 16.7 [place] % (Auto) 2.0 Eos % (Auto) 0.4 Baso % (Auto) 0.4 Neut # (Auto) 2.02 Lymph # (Auto) 0.42 L [place] # (Auto) 0.05 L Eos # (Auto) 0.01 Baso # (Auto) 0.01 Immature Gran # (Auto) 0.01 VBG pH 7.37 VBG pCO2 50 VBG pO2 55 VBG HCO3 29 VBG O2 Saturation 88.1 VBG Base Excess 2.7 Sodium 137 138 Potassium 3.9 4.7 D Chloride 106 106 Carbon Dioxide 25 26 Anion Gap 6 6 BUN 15 16 Creatinine 0.92 0.83 Est Cr Clr Drug Dosing 151.4 166.2 Est GFR ( Amer) 118.5 125.8 Est GFR (Non-Af Amer) 102.2 108.5 BUN/Creatinine Ratio 16.3 19.3 Glucose 151 H 239 H Calcium 9.1 9.5 Phosphorus 4.7 Magnesium 1.7 Troponin I High Sens < 2.3 2.5
[2023-05-28] MEDS ORDERED: Nursing to Pharmacy Communication SCH (09:15)
[2023-05-28] MEDS ORDERED: INSULIN ASPART PER UNIT CHARGE SC SCH (11:30)
--- NOTE | 2023-05-28 15:13 | Discharge Summary ---
Date of Service May 28, 2023 Admission HPI Per Admitting Provider 43-year-old male with past med history significant for type 2 diabetes, hyperlipidemia, asthma, history of factor V Leyden mutation, history of chest pain, history of eosinophilic esophagitis, history of pseudoseizures, history of migraine, anxiety, Klinefelter syndrome, noncompliant, depression, medical marijuana use, history of symptomatic bradycardia s/p pacemaker history of ventricular tachycardia, fibromyalgia, morbid obesity, history of obstructive sleep apnea currently not using CPAP machine and states he lost weight and planning to do sleep study presents with hematemesis and chest pain. Patient states since yesterday evening he had 4-6 episodes of hematemesis. Today morning since 3 AM is having chest pain. 7 /10 severity in middle of the chest. No radiation. Also has upper abdominal pain 7/ 10 in severity. No diarrhea or constipation. No bloody stools or black stools. Micturating okay. No shortness of breath. No fevers. No headache. Vision is okay. No runny nose or sore throat. No cough. Patient had similar episodes in April of last year. Hemodynamics are okay. Resting comfortably. Past med history. As mentioned above Past surgical history. S/p pacemaker. Cholecystectomy. For tooth removal. Gastric ulcer cauterized. Appendectomy. Social history. No smoking. No alcohol. Currently no drugs. Family history. Father had testicular cancer. Diabetes. CABG and stents. Hypertension. Sister has thyroid disorder Admission Exam Per Admitting Provider General- Not in distress Head- atraumatic Eyes- PERRL. ENT- oropharynx clear Neck- supple, no JVD. Lungs- clear to auscultation no wheezing or crackles. Heart- regular rhythm; no murmur, no gallop. Abdomen- normal bowel sounds, soft,mild diffuse discomfort , no distension Extremities- no pretibial edema, no erythema seen. Neuro- alert, oriented x 3; PERRL, no facial palsy; no dysarthria; Skin- warm & dry Principal Diagnosis Possible upper GI bleed Reflux esophagitis Discharge Exam Constitutional: WD/WN, vitals as above, NAD, sitting up in bed, pleasant, conversing easily Respiratory: normal respiratory effort, lungs clear to auscultation, no wheeze, rales, rhonchi. Normal insp/exp effort, no accessory muscle use Cardiovascular: RRR, no murmur, no edema Vessels: no JVD or carotid bruit Chest: normal inspection of chest Abdomen: Tenderness present in epigastric, periumbilical and left lower quadrant. Musculoskeletal: no cyanosis or clubbing, extremities motor strength 5/5 Skin: no rashes, warm and dry normal turgor Neurologic: PERRL, EOMI, accommodation nl, no face palsy, no dysarthria CN's II- XI intact bilaterally and moves all extremities Psychiatric: A+Ox3, euthymic affect Discharge Data Allergies Allergy/AdvReac Type Severity Reaction Status Date / Time penicillin V Allergy Severe RESP Verified 05/27/23 09:52 DIFFICULTY NSAIDS (Non-Steroidal Allergy Unknown UNKNOWN Unverified 05/27/23 09:52 Anti-Inflamma procaine Allergy Unknown UNKNOWN Unverified 05/27/23 09:52 adhesive Allergy _ Verified 05/27/23 09:52 Iodinated Contrast Media Allergy PROFILED Verified 05/27/23 09:52 "SEAFOOD ALLERGY=RASH" aripiprazole AdvReac Intermediate SEVERE Verified 05/27/23 09:52 MUSCLE CRAMPING clozapine AdvReac Intermediate ELEVATED Verified 05/27/23 09:52 AMMONIA LEVELS valproic acid AdvReac Unknown ELEVATED Verified 05/27/23 09:52 AMMONIA LEVELS Consultations 05/26/23 20:06 ED Decision to Admit Stat 05/27/23 08:00 Consult Gastroenterology Routine 05/28/23 07:28 Consult Cardiology Routine Procedures Performed Operation Date: 05/27/23 18:00 Actual Procedures p Esophagogastroduodenoscopy - Brandee Johnson MD Ordered Studies 05/26/23 18:22 CT abd pelvis wo con Stat 05/28/23 00:00 CTA chest dissec wo/w con [CT angio chest dissec wo/w con] Stat Hospital Course (1) Hematemesis: 43-year-old male with past med history significant for type 2 diabetes, hyperlipidemia, asthma, history of factor V Leyden mutation, history of chest pain, history of eosinophilic esophagitis, history of pseudoseizures, history of migraine, anxiety, Klinefelter syndrome, noncompliant, depression, medical marijuana use, history of symptomatic bradycardia s/p pacemaker history of ventricular tachycardia, fibromyalgia, morbid obesity, history of obstructive sleep apnea currently not using CPAP machine and states he lost weight and planning to do sleep study presents with hematemesis and epigastric pain Possible upper GI bleed Reflux esophagitis Patient presented with epigastric, periumbilical abdominal pain along with coffee-ground emesis Hemoglobin 13.6 on presentation; slightly down trended CT abdomen and pelvis shows eldon mesentery sign. possible mesenteric panniculitis Status post EGD on 05/26: Normal esophagus Grade a reflux esophagitis with no bleeding Normal stomach Discharged on Prilosec 20 mg once a day. Patient reported improvement in abdominal pain. Discharge home with instruction to follow-up with PCP. Xarelto restarted at discharge. Chest pain, Likely due to esophagitis High sensitive troponin negative Echocardiogram shows EF of 55 to 60% CTA chest done to rule out PE. Cardiology was consulted as patient had evidence of tachycardia on telemetry. Overview of the telemetry showed artifact. No real SVT or VT Patient to establish care with [facility] cardiology. Please note the above document was generated using voice recognition software. It may contain grammatical, syntax or spelling errors. Any formal questions or concerns about the content, text or information contained within the body of this dictation should be directly addressed to the provider for clarification Total Time Total Time Spent Total Time Spent (In Minutes): 45 Total Time Includes: Examination of the Patient, Discharge Planning, Medication Reconciliation, Communication With Other Providers and Other Discharge Plan Discharge Items Patient Disposition: Home - Self-Care Reason For Visit: HEMATEMESIS, CHEST PAIN Discharge Diagnosis: Reflux esophagitis Activity: Resume your previous activity Non-emergency contact: Primary Care Provider Call non-emergency contact if: you have any medication questions and your symptoms worsen Follow-up/Referrals: PCP,LAURE [Primary Care Provider] - Diet: Regular Addtl Attending Provider Instructions: You were admitted to the hospital due to vomiting. There was concern of GI bleeding for which you underwent endoscopy on May 27, 2023. Endoscopy showed reflux esophagitis with no bleeding. GI recommends you to be starting on Prilosec 20 mg daily. He should be taken 30 to 45 minutes prior to his a.m. meal. You were evaluated by cardiology for concern of arrhythmia during the hospitalization. Review of the telemetry did not show any significant arrhythmia. Echocardiogram shows normal heart function. Cardiology will set up outpatient follow-up for you. An appointment with a primary care doctor will also be set up. Pending Studies at Discharge: No Stand-Alone Forms: My [facility], Smoking Cessation Medications and DC Order Prescriptions: New omeprazole 20 mg capsule,delayed release(DR/EC) 20 mg PO DAILY Qty: 30 0RF Continued metformin 1,000 mg Tablet 1,000 mg PO BID insulin glargine [Lantus Solostar U-100 Insulin] 100 unit/mL (3 mL) Insulin Pen 36 unit SUBCUT QPM insulin lispro [Humalog KwikPen Insulin] 100 unit/mL Insulin Pen 0 unit SUBCUT UD PRN (Reason: Hyperglycemia) Rx Instructions: PER SLIDING SCALE Jardiance 25 mg Tablet 25 mg PO DAILY atorvastatin 40 mg Tablet 40 mg PO DAILY Xarelto 20 mg Tablet 20 mg PO DAILYBD Rx Instructions: must administer with evening meal Humira 40 mg/0.8 mL Syringe Kit 40 mg SUBCUT .Q2W pregabalin [Lyrica] 200 mg Capsule 200 mg PO BID Discharge Orders: Discharge Order (Routine); Ordered 05/28/23 Ordered By: Rod Pena/Other Patient Handouts: Managing Type 2 Diabetes Admission Data Admit Date/Time: 05/26/23 20:46 Attending Provider: Rod Bruner Admit Provider: Justin Chi Primary Care Provider: PCP,NO Other Providers: Justin Chi; Isi Leal; Marion Mcfadden; Ted Leone; Abner Kwong; Marin Baptiste; Olu Donato; Frank Herrera; Lily Pride; Arianne Rowan; Aldo Hancock Ashley M.; Laron Aggarwal; Johnny Payan; Svetlana Kelsey; Deisy Nash; Mai Bennett; Frank Ashraf Other Interventions: Discharge Summary Assessment (RN) Last Done: 05/28/23 10:49
[2023-05-28] MEDS ORDERED: RIVAROXABAN 20 MG TAB PO SCH (15:30)
--- NOTE | 2023-05-30 14:38 | Electrocardiogram Report ---
Test Reason : Blood Pressure : / mmHG Vent. Rate : 060 BPM Atrial Rate : 060 BPM P-R Int : 216 ms QRS Dur : 086 ms QT Int : 430 ms P-R-T Axes : 015 -16 027 degrees QTc Int : 430 ms Atrial-paced rhythm with prolonged AV conduction Moderate voltage criteria for LVH, may be normal variant Abnormal ECG When compared with ECG of 26-MAY-2023 16:12, Electronic atrial pacemaker has replaced Sinus rhythm Borderline criteria for Anterolateral infarct are no longer Present Confirmed by Truman Brooks ([id number]) on 05/30/2023 2:37:44 PM Referred By: REFERRED SELF Confirmed By:Truman Brooks
== END 2023-05-28 11:44 | disposition home or self-care (01) | DRG 369 ==
LOC: ED 15:48 → EDINP 20:46 → 4W 05-27 03:16